=== PATIENT | male | born 1945 | race Caucasian/White ===

== ENCOUNTER 2020-01-29 18:55 | Inpatient (IN) | payer MEDICARE, OTHER ==
[~2020-01-29 18:55] MED LIST: Iopamidol-370 76% 500 ML 1 ML ONE
[2020-01-29 19:51] LABS: #Basophils 0.1 thou/uL (0.0-0.2); #Eosinphils 0.1 thou/uL (0.0-0.7); #Lymphocytes 0.8 thou/uL (1.20-3.40); #Monocytes 0.5 thou/uL (0.11-0.59); #Neutrophils 6.2 thou/uL (1.40-6.50); %Basophils 0.7 % (0.0-1.0); %Eosinophils 1.3 % (0.0-10.0); %Lymphocytes 10.9 % (21.0-51.0); %Monocytes 5.9 % (0.0-10.0); %Neutrophils 81.2 % (42.0-75.0); Hemoglobin 10.6 g/dL (14.0-18.0); Mean Platelet Volume 8.4 fL (7.4-10.4); Platelet Count 168 thou/uL (130-400); Red Blood Cell (RBC) Count 3.21 mill/uL (4.70-6.10); White Blood Cell (WBC) Count 7.6 thou/uL (4.8-10.8)
[2020-01-29] MEDS ORDERED: Ondansetron PF 4 MG/2 ML Vial ONE (19:52)
[2020-01-29] MEDS ORDERED: Morphine 4 MG/ML VIAL ONE ×2 (19:52→21:55)
[2020-01-29 20:12] LABS: ALT (SGPT) 35 U/L (8-55); AST (SGOT) 32 U/L (5-34); Albumin 2.7 g/dL (3.4-4.8); Alkaline Phosphatase 212 U/L (40-110); Anion Gap 25 mmol/L (10-20); BUN (Urea Nitrogen) 65 mg/dL (8.4-25.7); Bilirubin, Total 0.5 mg/dL (0.2-1.2); CK (CPK) 124 U/L (30-200); Calc. Creatinine Clearance 0 mL/min (70-130); Calcium 6.3 mg/dL (7.8-10.44); Carbon Dioxide 15 mmol/L (23-31); Chloride 105 mmol/L (98-107); Estimated GFR-MDRD 4; Globulin 2.8 g/dL (2.4-3.5); Glucose 106 mg/dL (83-110); Potassium 4.3 mmol/L (3.5-5.1); Protein, Total 5.5 g/dL (5.8-8.1); Sodium 141 mmol/L (136-145)
--- NOTE | 2020-01-29 20:20 | RAD ---
LEFT ANKLE TWO VIEW: 01/29/20 HISTORY: Fall, injury. COMPARISON: None. FINDINGS: Extensive vascular calcifications. Advanced degenerative disease of the lateral ankle mortise. Age in determinate fracture lateral process of the talus although there is adjacent soft tissue swelling. Hi gh grade midfoot degenerative change. Mild to moderate sized dorsal and plantar calcaneal spurs. IMPRESSION: 1. Age indeterminate fracture lateral process of talus. Recommend correlation for focal tenderne ss. 2. Advanced degenerative disease of the lateral ankle mortise. 3. Advanced degenerative disease of the midfoot. 4. High grade vascular calcifications. POS: HOME
[2020-01-29 20:35] LABS: CKMB 2.6 ng/mL (0-6.6)
--- NOTE | 2020-01-29 20:37 | RAD ---
LEFT KNEE FOUR VIEWS: 01/29/20 HISTORY: Injury. FINDINGS: Extensively comminuted fracture of the distal femur is present with extension into the femoral compon ent of the metallic knee prosthesis. There is splitting of the distal femoral fragments at the metall ic hardware. Lipohemarthrosis evident on the lateral view. Osseous structures are markedly deminerali zed. Calcifications throughout the arterial structures. IMPRESSION: Extensively comminuted distal left femoral fracture extending to the metallic component of a knee pro sthesis. Lipohemarthrosis. Osteoporosis. Atherosclerosis. POS: BST
--- NOTE | 2020-01-29 20:43 | CT ---
CT HEAD NONCONTRAST: 01/29/20 HISTORY: Fall. Injury. FINDINGS: There is no evidence of acute intracranial hemorrhage or infarct. Mild diffuse cortical atrophy. Mild chronic ischemic small vessel disease. There is no mass effect or shift of midline structures. Calcification within the arterial structures of the brain base. Visualized paranasal sinuses remain well aerated. IMPRESSION: No acute traumatic injury is demonstrated. Atherosclerosis. POS: BST
--- NOTE | 2020-01-29 20:44 | CT ---
CT CERVICAL SPINE NONCONTRAST: 01/29/20 HISTORY: Fall. Neck injury. FINDINGS: Vertebral body heights are maintained. No acute fracture or dislocation are evident. Minimal degenera tive spondylolisthesis at the C2-3 and T1-2 levels. Osteophytosis throughout the vertebral bodies and facets with multilevel foraminal stenoses. Prominent calcification throughout the arterial structures. IMPRESSION: Degenerative changes cervical spine. No acute osseous abnormalities are demonstrated. Atherosclerosis. POS: BST
[2020-01-29] MEDS ORDERED: Fentanyl 100 MCG/2 ML VIAL ONE ×3 (22:04→23:43)
[2020-01-29] MEDS ORDERED: Ondansetron PF 4 MG/2 ML Vial IVP PRN (22:41)
[2020-01-29] MEDS ORDERED: hydrALAZINE 20 MG/ML VIAL SLOW IVP PRN (22:41)
[2020-01-29] MEDS ORDERED: Dextrose 50% Abboject 50 ML SYRINGE SLOW IVP PRN (22:41)
[2020-01-29] MEDS ORDERED: Dextrose 5% in Water 1,000 ML IV PRN (22:41)
[2020-01-29] MEDS ORDERED: traMADol HCl 50 MG TAB PO PRN (22:46)
[2020-01-29 23:11] LABS: Phosphorus 8.6 mg/dL (2.3-4.7)
[2020-01-29] MEDS ORDERED: Hydrocortisone Sod Succ/PF 100 mg/2 ml Vial ONE (23:12)
[2020-01-30 00:14] LABS: CKMB 4.3 ng/mL (0-6.6)
[2020-01-30 01:02] VITALS: BMI 30.3
[2020-01-30] MEDS: Acetaminophen 500 MG TAB PO SCH ×5 (01:21→23:40)
[2020-01-30 01:52] LABS: #Lymphocytes 0.7 thou/uL (1.20-3.40); #Monocytes 0.5 thou/uL (0.11-0.59); #Neutrophils 12.9 thou/uL (1.40-6.50); %Basophils 0.3 % (0.0-1.0); %Eosinophils 0.3 % (0.0-10.0); %Lymphocytes 4.9 % (21.0-51.0); %Monocytes 3.4 % (0.0-10.0); %Neutrophils 91.2 % (42.0-75.0); Hemoglobin 11.4 g/dL (14.0-18.0); Mean Corpuscular HGB CONC 32.6 g/dL (32.0-36.0); Mean Corpuscular Hemoglobin 33.1 pg (27.0-31.0); Mean Platelet Volume 8.1 fL (7.4-10.4); Platelet Count 175 thou/uL (130-400); RBC Distribution Width 12.9 % (11.5-14.5); Red Blood Cell (RBC) Count 3.45 mill/uL (4.70-6.10); White Blood Cell (WBC) Count 14.1 thou/uL (4.8-10.8)
--- NOTE | 2020-01-30 01:52 | CON ---
DATE OF CONSULTATION: 01/29/2020 SERVICE: Nephrology. REASON FOR CONSULTATION: End-stage renal disease management. REQUESTING PHYSICIAN: Dr. Walter Vu. CHIEF COMPLAINT: The patient is a 74-year-old male with known history of end-stage renal disease, on hemodialysis, hypertension, gout, and others, who was brought into the hospital after he lost his balance and fell. The patient reportedly twisted his left leg and fell and subsequently developed pain to the knee and ankle of the affected left leg. He also reportedly hit the head, but denied loss of consciousness, nausea, vomiting. The patient reportedly was hypotensive and was noted to have marked swelling of the left thigh concerning for continued bleeding. The patient was subsequently evaluated with CT angio of the left lower extremity, which however was negative for active bleeding. The patient who is visiting the area from [place] where he dialyzes. He only was able to tell me that he thus far , but does not know his prescription. He does not make urine anymore. He complains of being dry and thirsty. He denies shortness of breath, chest pain, or headache. PAST MEDICAL HISTORY: 1. End-stage renal disease. 2. Arrhythmias. 3. Gout. 4. Hypertension. PAST SURGICAL HISTORY: 1. Cholecystectomy. 2. Pacemaker placement. 3. Right big toe amputation. 4. Bilateral knee replacements. FAMILY HISTORY: Reviewed, but noncontributory. SOCIAL HISTORY: The patient lives with spouse. Denied alcohol, drug, or smoking. ALLERGIES: NO KNOWN DRUG ALLERGIES REPORTED. HOME MEDICATIONS: 1. Lisinopril 40 mg p.o. daily. 2. Metoprolol tartrate 25 mg p.o. b.i.d. 3. Allopurinol 300 mg daily. 4. Protonix 40 mg p.o. daily. 5. Calcitriol 0.5 mcg p.o. daily. 6. Magnesium tablet once daily. 7. Tamsulosin 0.4 mg p.o. daily. 8. Note that this list has not been verified as the patient does not really know exactly what he is taking. REVIEW OF SYSTEMS: A 12-point review of system performed was negative other than pertinent positives and negatives included in the history of present illness. PHYSICAL EXAMINATION: VITAL SIGNS: Initial vitals on presentation showed BP 117/58, respiratory rate 18, pain 9/10, pulse 61, temperature 97.9, SpO2 100% on room air. However, blood pressure did drop down to a tiny of 86.38 hence was bolused normal saline 500 mL and also was transfused 1 unit of packed red blood cells. GENERAL: Obese male, in some painful distress. Afebrile. Anicteric. Acyanotic. HEENT: Normocephalic, atraumatic. Oral mucosa is dry. NECK: Supple with no JVD. CARDIOVASCULAR: Regular rhythm and rate with normal heart sounds 1 and 2. RESPIRATORY: Fair air entry bilaterally with no obvious crackle or rhonchi or use of accessory muscles. GI: Full, soft, nondistended with normal bowel sounds. PD catheter noted. EXTREMITIES: Left lower extremity is held in lateral rotation and mid flexion at the knee. Marked swelling of the left thigh noted. Tenderness also is appreciated. Other extremities are grossly normal looking atraumatic with no obvious edema except amputation of right big toe. PARACHUTE INSPECTOR: Conscious, alert, oriented x3 with appropriate mental status. Cranial nerves 2 through 12 are grossly intact. DIAGNOSTIC DATA: CBC showed WBC count of 7.6, hemoglobin of 10.6, MCV of 103, platelet of 168. CMP showed sodium 141, potassium 4.3, chloride 105, CO2 16, BUN 65, creatinine 11.3, glucose 106, calcium 6.3, total bilirubin 0.5, AST 32, ALT 35, alkaline phosphatase 212, total protein 5.5, albumin 2.7. Initial cardiac markers showed CK 124, CK-MB 2.6, troponin 0.056. Phosphorus is 8.6 and magnesium is 2.1. Random cortisol level is 12.6. IMAGIN. CT scan of the brain showed no acute traumatic injury. 2. CT scan of the cervical spine showed degenerative changes in the cervical spine with no acute osseous abnormality. 3. X-ray of the knee showed extensive comminuted distal leg femoral fracture extending to the metallic component of a knee prosthesis. 4. Left ankle fracture showed age indeterminate fracture, lateral process of talus as well as advanced degenerative disease of the lateral ankle mortise and of mid foot as well as high-grade vascular calcifications. 5. Lower extremity CT scan, CT angio as well as chest x-ray and pelvic x-ray have also been done, but report is pending at this time. ASSESSMENT: 1. End-stage renal disease, on peritoneal dialysis. The patient makes no urine and has no residual renal function. Received contrast for evaluation of possible acute bleed in contrast CT of lower extremity. In view of absence of renal function, there is no need for hemodialysis. 2. Hypotension: Due to volume depletion as well as acute blood loss leading to intravascular contraction. Some contribution from adrenal insufficiency cannot be ruled out. 3. Acute blood loss into the left thigh tissue. 4. Metabolic acidosis due to end-stage renal disease. 5. Hypocalcemia. 6. Hyperphosphatemia. 7. Presumed adrenal insufficiency. PLAN: We will give additional 500 mL of normal saline as blood pressure is soft. 1. We will hold all antihypertensives. 2. We will dialyze patient inline with his usual schedule. However, we will deescalate ultrafiltration as patient is clinically dry. 3. We will monitor hemodynamics closely. 4. Management of fracture as per Trauma Team and Orthopedics. 5. Further treatment to follow depending on hospital course. Many thanks for involving us in the care of this patient. Job ID: [id number]
[2020-01-30] MEDS: traMADol HCl 50 MG TAB PO PRN (02:13)
[2020-01-30 02:18] LABS: Troponin I 0.063 ng/mL (< 0.028)
[2020-01-30] MEDS: traMADol HCl 50 MG TAB PO SCH (03:07)
[2020-01-30 03:36] LABS: #Lymphocytes 0.6 thou/uL (1.20-3.40); #Monocytes 0.3 thou/uL (0.11-0.59); #Neutrophils 13.1 thou/uL (1.40-6.50); %Eosinophils 0.3 % (0.0-10.0); %Lymphocytes 4.3 % (21.0-51.0); %Monocytes 2.4 % (0.0-10.0); Hemoglobin 11.6 g/dL (14.0-18.0); Mean Corpuscular HGB CONC 33.4 g/dL (32.0-36.0); Mean Corpuscular Hemoglobin 33.6 pg (27.0-31.0); Mean Platelet Volume 8.1 fL (7.4-10.4); Platelet Count 172 thou/uL (130-400); RBC Distribution Width 12.9 % (11.5-14.5); Red Blood Cell (RBC) Count 3.45 mill/uL (4.70-6.10); White Blood Cell (WBC) Count 14.1 thou/uL (4.8-10.8)
[2020-01-30 03:38] LABS: HBSAg Index 0.16 S/CO (0-0.99); Hep B Surf Ag Non-Reactive S/CO (NonReactive)
[2020-01-30 04:02] LABS: Anion Gap 26 mmol/L (10-20); BUN (Urea Nitrogen) 67 mg/dL (8.4-25.7); Calc. Creatinine Clearance 10 mL/min (70-130); Calcium 6.3 mg/dL (7.8-10.44); Carbon Dioxide 13 mmol/L (23-31); Chloride 103 mmol/L (98-107); Estimated GFR-MDRD 5; Glucose 179 mg/dL (83-110); Potassium 4.8 mmol/L (3.5-5.1); Sodium 137 mmol/L (136-145)
[2020-01-30 04:09] LABS: Phosphorus 9.2 mg/dL (2.3-4.7)
[2020-01-30] MEDS: Fentanyl 100 MCG/2 ML VIAL SLOW IVP PRN (04:25)
[2020-01-30] MEDS: Hydrocortisone Sod Succ/PF 100 mg/2 ml Vial IVP SCH ×4 (06:08→23:40)
--- NOTE | 2020-01-30 06:09 | HP ---
TRAUMA SURGEON: Dr. Martinez. CONSULTING PHYSICIANS: Dr. Helton of Nephrology and Dr. Nascimento of Orthopedic Surgery. HISTORY OF PRESENT ILLNESS: The patient is a 74-year-old male, who presented to the emergency department via EMS after a mechanical slip and fall at a gas station. The patient reported falling forward onto his knees. Upon evaluation, he had some left thigh swelling and deformity. At the time of my evaluation, the patient did slowly become hypotensive with systolics in the 80s. The emergency room physician ordered a CTA of the left lower extremity as well as 500 cc of IV fluid followed by 1 L of blood. CTA of the left lower extremity demonstrated no vascular injury. The patient after receiving blood was still hypotensive and subsequently received 100 mg of hydrocortisone. This caused an increase in his blood pressure. Dr. Helton also evaluated the patient at the bedside and reported he thought the patient was dry. The patient received another 500 cc bolus of IV fluids in accordance to his recommendation. The patient, at the time of my evaluation, denied numbness and tingling in his bilateral upper and lower extremities. He denied chest pain or shortness of breath. He denied C-spine pain. At one point, he did become tachycardic into the 150s. EKG was completed, which demonstrated T-wave inversions in the lateral leads. This was a change in his EKG from previously. His troponin is also slightly elevated at 0.05. Per the recommendations of Dr. Martinez, Cardiology was consulted. I spoke with Dr. Salcido over the phone, who reported he was not concerned and recommended a formal consult in the morning for whoever is on-call. He did not come to see the patient at that time. Dr. Martinez was updated. REVIEW OF SYSTEMS: All additional 10-point review of systems negative except as indicated above. PAST MEDICAL HISTORY: ESRD, on peritoneal dialysis; obstructive sleep apnea; pacemaker; spinal stenosis; diabetes; gastric ulcers. PAST SURGICAL HISTORY: Right great toe amputation, bilateral knee replacement, cholecystectomy, gastric bypass surgery. MEDICATIONS: The patient is not aware of his medications, only reports he takes lisinopril. ALLERGIES: NO KNOWN DRUG ALLERGIES. PHYSICAL EXAMINATION: VITAL SIGNS: Temperature 97.4, pulse 73, respirations 15, oxygen saturation 100% on room air, blood pressure 110/55. PRIMARY SURVEY: Airway intact. Adequate breath sounds bilaterally. 2+ pulses in bilateral radials, femorals, and DPs. GCS 15. Gross motor and sensation are intact. No lacerations, bruising, or external bleeding. Left thigh is swollen with deformity. SECONDARY SURVEY: HEAD: Normocephalic and atraumatic. No gross palpable skull deformities. EYES: Pupils 3-2, equal, round, reactive to light bilaterally. FACE: No signs of trauma. C-SPINE: No step-offs or deformities. Nontender. CHEST: Nontender. No crepitus. No abrasions or ecchymosis. Equal chest movement. ABDOMEN: Soft, nontender, nondistended. PELVIS: Stable to palpation. Nontender. No abrasions or ecchymosis noted. RECTAL: Deferred. GENITOURINARY: Deferred. EXTREMITIES: The patient has swelling and deformity to his left thigh. No other abrasions or ecchymosis noted. 2+ pulses in bilateral radials, femorals, and DPs. BACK/SPINE: No step-offs, deformities, or tenderness to palpation of the thoracic or lumbar spine. No abrasions or ecchymosis noted. 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 Gross normal sensation x4 extremities. LABORATORY FINDINGS: White count 7.6, hemoglobin 10.6, hematocrit 33.1, platelets 168. Sodium 141, potassium 4.3, chloride 105, bicarb 15, BUN 63, creatinine 11.3, glucose 106, phosphorus 8.6, magnesium 2.1. CK 124, troponin 0.056. Cortisol 12.6. DIAGNOSTIC FINDINGS: X-ray of the left knee demonstrates extensive comminuted displaced left femoral fracture extending into the metallic component of the knee prosthesis. X-ray of the left ankle demonstrates age-indeterminate fracture of lateral process of talus, recommend correlation for focal tenderness. Advanced degenerative disease of the lateral ankle mortise, advanced degenerative disease of the midfoot, high grade vascular calcifications. CT scan of the brain, no acute traumatic injury is demonstrated. CT scan of the C-spine demonstrates degenerative changes of the cervical spine. No acute osseous abnormalities are demonstrated. CTA of the left lower extremity, final read is pending as well as chest x-ray and pelvic x-ray. ASSESSMENT: 1. Status post mechanical fall from standing. 2. Left distal periprosthetic femur fracture. 3. Acute adrenal insufficiency. 4. Rff-CO-[id number] myocardial infarction. 5. History of end-stage renal disease, on peritoneal dialysis; obstructive sleep apnea; pacemaker; spinal stenosis; diabetes, and gastric ulcers. PLAN: The patient will be admitted to the Trauma Service before moving to the [facility]. The patient was hemodynamically stable, but Dr. Martinez recommended close blood pressure evaluation. Dr. Helton was also consulted yesterday. The patient was requiring to do peritoneal dialysis, but had not completed it yet. Dr. Helton plans some form of dialysis this evening. Dr. Nascimento of Orthopedic Surgery was consulted and plan to take the patient to the OR tomorrow. I did speak with Dr. Salcido over the phone per the recommendations of Dr. Martinez, who evaluated the patient at bedside. He reported it would be appropriate for us to consult Cardiology in the morning and not this evening. Subsequently, we have placed an order for Cardiology consult in the morning. We will continue to trend his troponins. For the acute adrenal insufficiency, he did receive 100 of hydrocortisone in the emergency department. He will receive 50 mg IV q.6 hours. He has p.o. and IV pain medications post scheduled and p.r.n. He has insulin sliding scale for his diabetes. He is n.p.o. He has CPAP at night. He has brought his home machine. This patient was evaluated by Dr. Martinez and myself this evening in the emergency department. Job ID: [id number]
[2020-01-30] MEDS: Insulin Regular 300 UNITS/3 ML VIAL SC PRN ×3 (06:47→23:53)
--- NOTE | 2020-01-30 07:22 | RAD ---
CHEST 1 VIEW: Date: 01/29/2020 HISTORY: Fall. COMPARISON: None. FINDINGS: Lungs are clear. No pneumothorax or effusion. Dual lead pacer leads project over the right atrium and right ventricle. No displaced rib fracture. IMPRESSION: No acute intrathoracic abnormality. POS: HOME
--- NOTE | 2020-01-30 07:23 | RAD ---
PELVIS 1 VIEW: Date: 01/29/2020 HISTORY: Fall. COMPARISON: None. FINDINGS: The obturator rings are intact. Mild narrowing of both hip joints. Small acetabular osteophytes. Moderate vascular calcifications. Catheter projects over the left lower quadrant of the pelvis. IMPRESSION: No acute osseous abnormality. POS: HOME
[2020-01-30] MEDS ORDERED: CEFAZOLIN 2 GM in Premix Bag 1 BAG IVPB SCH (07:30)
--- NOTE | 2020-01-30 07:32 | CT ---
CT ANGIOGRAM LEFT LOWER EXTREMITY: Date: 01/29/2020 HISTORY: Pain. Evaluate for bleed. COMPARISON: Knee radiograph same date. FINDINGS: Comminuted distal femoral periprosthetic fracture with fracture line extending into the prosthesis. E xtensive vascular calcifications. Small volume knee joint effusion. There is no active contrast extra vasation. The popliteal artery is intact. The trifurcation is intact proximally. No significant flow within the posterior tibial artery at the level of the mid tib-fib. Small volume hematoma within the vastus intermedius and vastus lateralis muscles. IMPRESSION: 1. No active contrast extravasation. Small volume intramuscular hematoma of vastus intermedius and v astus lateralis muscles. 2. No significant flow of posterior tibial artery to level of mid tib-fib, likely sequelae of chroni c vascular disease. 3. Comminuted periprosthetic distal femoral fracture. POS: HOME
[2020-01-30] MEDS: Polyethylene Glycol 3350 17 GM Packet PO SCH ×2 (07:54→08:03)
[2020-01-30] MEDS: Senokot S 8.6-50 MG TAB PO SCH ×2 (07:57→20:10)
[2020-01-30 08:08] LABS: Troponin I 0.066 ng/mL (< 0.028)
--- NOTE | 2020-01-30 09:53 | CON ---
DATE OF CONSULTATION: 01/30/2020 CHIEF COMPLAINT: Left knee pain. HISTORY OF PRESENT ILLNESS: Mr. Laguerre is a 74-year-old male, who [facility]. He was traveling in between dialysis in [place]. He tripped and fell while getting gas. He landed on his left leg. He had pain and deformity. He was taken to the emergency department. He has been found to have a distal femoral fracture. He has a history of total knee arthroplasty in 2004. He has had no problems with his knee since then. The patient is on dialysis. He is currently moving from [place] to [place]. He does not live in [place]. He does peritoneal dialysis. REVIEW OF SYSTEMS: Positive for left leg pain. Otherwise, negative 10-point review of systems. PAST MEDICAL HISTORY: End-stage renal disease, on peritoneal dialysis; obstructive sleep apnea; history of pacemaker placement; spinal stenosis; diabetes; gastric ulceration. PAST SURGICAL HISTORY: Right great toe amputation for infection, bilateral total knee arthroplasty, cholecystectomy, gastric bypass surgery. FAMILY MEDICAL HISTORY: Noncontributory. ALLERGIES: NO KNOWN DRUG ALLERGIES. PHYSICAL EXAMINATION: VITAL SIGNS: The patient is afebrile. Blood pressure is 115/52, heart rate is 75, 100% on room air. GENERAL: He is alert, lying supine, no apparent distress. HEENT: Normocephalic, atraumatic. RESPIRATORY: Breathing comfortably. ABDOMEN: Soft, nontender, and nondistended. There is peritoneal dialysis catheter. MUSCULOSKELETAL: The patient's left leg is flexed and externally rotated. He has a well-healed anterior knee scar. There is shortening and deformity of the distal femur. He has ecchymosis and bruising around the knee as well as the medial malleolus of the ankle. Tender to palpation. He is able to flex and extend the foot and ankle. Palpable dorsalis pedis pulse. IMAGING STUDIES: X-rays of the left femur demonstrate highly comminuted and displaced distal femoral fracture. This is a periprosthetic fracture. The total knee implant appears to be fixed to the bone, however, the fracture does communicate with the cement interface. He has evidence of osteoporosis on x-ray. Left ankle x-ray demonstrates osteoarthritic changes of the hindfoot and midfoot. There is possible lateral process of the talus fracture, which appears to be chronic in nature. No medial malleolus fractures identified on this x-ray. IMPRESSION: Left distal femur periprosthetic fracture in an elderly male. PLAN: At this point, the patient is going to need surgical intervention. We will plan for open reduction and internal fixation of his left distal femur. Goal of surgery is to stabilize the bone to allow healing. Risks have been reviewed, which to include infection, pain, scarring, nerve or vascular injury, and others. He will need to be nonweightbearing for 6 to 8 weeks. He appears to have a soft tissue injury to his ankle primarily. This should heal along with the femur as he will be nonweightbearing. He will have perioperative antibiotics. He will have DVT prophylaxis. A fourth officer has been consulted to evaluate his slight troponin elevation prior to surgery today. He will remain n.p.o. He will have antibiotics on-call to the operating room. Job ID: [id number]
[2020-01-30] MEDS ORDERED: Dexamethasone 20 MG/5 ML VIAL ONE (11:16)
[2020-01-30] MEDS ORDERED: Lidocaine 1% PF 5 ML VIAL ONE (11:16)
[2020-01-30] MEDS ORDERED: EPHEDRINE 25 MG/5 ML SYRINGE ONE (11:16)
[2020-01-30] MEDS ORDERED: Glycopyrrolate 0.2 MG/ML 5 ML SYRINGE ONE (11:16)
[2020-01-30] MEDS ORDERED: PHENYLEPHRINE-NS 100 MCG/ML 10 ML SYRINGE ONE (11:16)
[2020-01-30] MEDS ORDERED: Rocuronium Bromide 10 MG/ML (10ML VIAL) ONE (11:16)
[2020-01-30] MEDS ORDERED: PROPOFOL 200 MG/20 ML VIAL ONE (11:16)
[2020-01-30] MEDS ORDERED: Ondansetron PF 4 MG/2 ML Vial ONE (11:16)
--- NOTE | 2020-01-30 12:48 | CON ---
DATE OF CONSULTATION: HISTORY OF PRESENT ILLNESS: The patient is a 74-year-old gentleman, who presented after a fall and needs to undergo surgery. The patient has a previous history of a pacemaker placement. He states several years ago he had several syncopal episodes and apparently significant bradycardia. The patient has no history of coronary artery disease. The patient states he underwent a stress test at the [facility] two years ago, which was unremarkable. The patient denies having any history of chest discomfort. The patient denies having any PND or orthopnea. The patient had a fall yesterday and apparently needs to undergo a knee surgery. PAST MEDICAL HISTORY: 1. History of syncope. 2. End-stage renal disease. 3. Diabetes mellitus. 4. Hypertension. 5. History of bleeding ulcers. PAST SURGICAL HISTORY: Gastric surgery, cholecystectomy, toe surgery, and knee surgery. ALLERGIES: NO KNOWN DRUG ALLERGIES. SOCIAL HISTORY: Nonsmoker. FAMILY HISTORY: Positive for family history of coronary artery disease. MEDICATIONS: 1. Lisinopril 5 b.i.d. 2. Metoprolol 25 b.i.d. 3. Allopurinol 300 daily. 4. Protonix 40 daily. 5. Flomax 0.4 daily. REVIEW OF SYSTEMS: Ten-point system otherwise unremarkable. No history of easy bruising or bleeding, bright red blood per rectum. PHYSICAL EXAMINATION: GENERAL: Obese gentleman, in no acute distress. VITAL SIGNS: Blood pressure is 115/52. NECK: Showed no jugular venous distention. LUNGS: Clear to auscultation. HEART: Regular rate and rhythm. Normal S1 and S2. No murmurs. ABDOMEN: Nondistended. EXTREMITIES: Show no edema. VASCULAR: Radial pulses are 2+. LABORATORY RESULTS: Sodium 137, potassium 4.8, chloride 103, bicarb 13, BUN 67 , and creatinine was 11. Troponin was 0.066. White blood cell count is 14.1, hemoglobin 11.6, hematocrit 34.8, and platelets are 172. IMAGING DATA: EKG reveals a biventricular pacemaker. IMPRESSION: 1. Status post femur fracture. 2. End-stage renal disease. 3. Diabetes mellitus. 4. Hypertension. 5. History of bleeding ulcer. 6. History of pacemaker placement. PLAN: This gentleman presents after having a fall and needs to undergo orthopedic surgery. The patient has no symptoms suggestive of unstable angina. The patient has no evidence of congestive heart failure. We will check the patient's echocardiogram. The patient should be at acceptable risk for orthopedic surgery. Job ID: [id number] [facility]
--- NOTE | 2020-01-30 13:14 | PDOC.HOSPP ---
- Subjective Encounter Date: 01/30/20 Encounter Time: 08:45 Subjective: no chest pain or palp or sob last stress test [place] [facility] back [facility] [place] PCP is at [facility]. uses cane/walker to ambulate prior b/l tkr done at [facility] by Dr.Michael Howell (2004 left and 2002 right) on Peritoneal dialysis from sep of this year - Objective Vital Signs & Weight: Vital Signs (12 hours) Temp Pulse Ox 01/30/20 11:21 98.3 F 01/30/20 08:00 100 01/30/20 07:24 97.9 F 01/30/20 01:41 100 01/30/20 01:30 100 Weight Weight 255 lb 15.307 oz Most Recent Monitor Data Heart Rate from ECG 66 NIBP 97/55 NIBP BP-Mean 69 Respiration from ECG 17 SpO2 100 Result Diagrams: 01/30/20 03:17 01/30/20 03:17 Additional Labs: Accuchecks 01/30/20 01/30/20 01/30/20 12:15 06:47 01:33 POC Glucose 170 H 213 H 172 H Hospitalist ROS - Medication Medications: Active Medications Generic Name Dose Route Start Last Admin Trade Name Freq PRN Reason Stop Dose Admin Acetaminophen 1,000 mg 01/29/20 23:59 01/30/20 11:20 Tylenol PO 1,000 mg Q6HR JACK Administration Fentanyl 50 mcg 01/29/20 23:42 01/30/20 04:25 Sublimaze SLOW IVP 50 mcg Q2H PRN Administration Breakthrough Pain Hydrocortisone Sodium Succinate 50 mg 01/30/20 06:00 01/30/20 11:20 Solu-Cortef IVP 50 mg Q6HR JACK Administration Insulin Human Regular 0 units 01/29/20 22:41 01/30/20 06:47 Humulin R SC 3 unit .MILD SLIDING SCALE PRN Administration Mild Correctional Scale Pantoprazole Sodium 40 mg 01/30/20 09:00 01/30/20 07:53 Protonix PO 40 mg BID JACK Administration Polyethylene Glycol 17 gm 01/30/20 09:00 01/30/20 08:03 Miralax PO Not Given DAILY JACK Senna/Docusate Sodium 2 tab 01/30/20 09:00 01/30/20 07:57 Senokot S PO 2 tab BID JACK Administration Tramadol HCl 50 mg 01/29/20 22:46 01/30/20 02:13 Ultram PO 50 mg Q12H PRN Administration Moderate Pain (4-6) Tramadol HCl 50 mg 01/30/20 03:15 01/30/20 03:07 Ultram PO 06/28/21 03:16 50 mg NOW JACK Administration - Exam General Appearance: awake alert Eye: PERRL, anicteric sclera ENT: no oropharyngeal lesions, moist mucosa Neck: supple, no JVD Heart: RRR, no murmur Respiratory: no wheezes, no rales, no ronchi Gastrointestinal: soft, non-tender, non-distended, normal bowel sounds Gastrointestinal - other findings: PD cath+ Extremities: no cyanosis, 1+ LE edema Extremities - other findings: left LE edema especially thigh area Neurological: cranial nerve grossly intact, no focal deficits Psychiatric: normal affect, A&O x 3 Hosp A/P (1) Closed fracture of left distal femur Code(s): S72.402A - UNSP FRACTURE OF LOWER END OF LEFT FEMUR, INIT FOR CLOS FX Status: Acute Qualifiers: Encounter type: subsequent encounter (2) DM type 2 (diabetes mellitus, type 2) Status: Chronic Qualifiers: Diabetes mellitus chcf insulin use: without chcf use Diabetes mellitus complication status: with kidney complications Diabetes mellitus complication detail: with chronic kidney disease Chronic kidney disease stage : stage 5, not on chronic dialysis Qualified Code(s): E11.22 - Type 2 diabetes mellitus with diabetic chronic kidney disease; N18.5 - Chronic kidney disease, stage 5 (3) ESRD (end stage renal disease) on dialysis Code(s): N18.6 - END STAGE RENAL DISEASE; Z99.2 - DEPENDENCE ON RENAL DIALYSIS Status: Chronic (4) Peptic ulcer disease Code(s): K27.9 - PEPTIC ULC, SITE UNSP, UNSP AC OR CHR, W/O HEMOR OR PERF Status: Chronic (5) Obesity (BMI 30.0-34.9) Code(s): E66.9 - OBESITY, UNSPECIFIED Status: Chronic (6) LIDIA (obstructive sleep apnea) Code(s): G47.33 - OBSTRUCTIVE SLEEP APNEA (ADULT) (PEDIATRIC) Status: Chronic - Plan is going to OR to fix periprosthetic distal femoral fracture echo shows normal ef with no obvious wall motion abnormalities but it was tech difficult study to wear cpap after surgery (cpap machine has tubing issues) protonix, is on iv steroids his baseline SBP runs around 100-110 per patient if it drops to less than 100 he gets dizzy continue PD for esrd will f/u post op he has been cleared for surgery with acceptable risk without which has high morbidity and associated complications.
[2020-01-30] MEDS ORDERED: Cyanocobalamin 1000 MCG/ML VIAL SC SCH (14:00)
[2020-01-30] MEDS ORDERED: Fentanyl 100 MCG/2 ML VIAL ONE ×2 (14:09→17:40)
--- NOTE | 2020-01-30 14:45 | PRG ---
DATE OF SERVICE: 01/30/2020 SERVICE: Nephrology. SUBJECTIVE: A 74-year-old male patient with end-stage renal disease, on hemodialysis; hypertension; diabetes, and others, who was admitted after a fall. The patient sustained injury and fracture to the left lower extremity. This was associated with hypotension requiring IV fluid resuscitation with blood transfusion. Nephrology is following the patient for end-stage renal disease management. The patient reports feeling better today. Still having left lower extremity swelling and pain and decreased range of motion. Denied vomiting or dizziness. OBJECTIVE: VITAL SIGNS: Temperature 97.9, pulse 66, respiratory rate 17, SpO2 of 100%, blood pressure is 115/52. GENERAL: Obese male, in no obvious distress. Afebrile. Anicteric. Acyanotic. HEENT: Normocephalic and atraumatic. Oral mucosa is moist. CARDIOVASCULAR: Regular rhythm and rate with normal heart sounds 1 and 2. RESPIRATORY: Fair air entry bilaterally with no obvious crackle or rhonchi or use of accessory muscles. GI: Abdomen is obese, soft, nontender, nondistended. Dialysis catheter is in place. EXTREMITIES: Marked swelling of left lower extremity, which is held in lateral rotation and flexion at the knee. Other extremities are grossly unremarkable with no edema. BELLHOP: Conscious and alert, oriented x3 with appropriate mental status. Cranial nerves 2 through 12 are grossly intact. DIAGNOSTIC DATA: CBC showed WBC count of 14.1, hemoglobin of 11.6, platelets of 172. Chemistry showed sodium 137, potassium 4.8, chloride 103, CO2 of 13, BUN 67, creatinine 11, glucose 179, calcium 6.3, phosphorus 9.2, magnesium 2.0. Vitamin D is 16.6. ASSESSMENT: 1. End-stage renal disease, on peritoneal dialysis. 2. Hyperphosphatemia with phosphorus of 9.2. 3. Hypocalcemia with calcium of 6.3. Association of hypocalcemia and hyperphosphatemia is consistent with secondary hyperparathyroidism. Vitamin D deficiency, however, is a concern. 4. Metabolic acidosis: Due to end-stage renal disease. 5. Hypotension: Resolved. 6. History of hypertension: BP is controlled currently while antihypertensives are held. PLAN: 1. We will continue peritoneal dialysis today. We will dialyze the patient using regular prescription. 2. We will start Renvela phosphate binder. 3. We will also get vitamin D level and start supplementation if indicated. 4. Further treatment to follow depending on hospital course. 5. Treatment of fracture as per Trauma and Orthopedic Teams. Job ID: [id number]
[2020-01-30] MEDS ORDERED: Sodium Chloride 0.9% 1,000 ML IV SCH (15:00)
--- NOTE | 2020-01-30 15:30 | PRG ---
DATE OF SERVICE: 01/30/2020 SUBJECTIVE: The patient remains in the intermediate care unit, awake, alert, in no distress. The patient has been n.p.o. since midnight. The patient had no overnight events. The patient was mildly hypotensive in the emergency room last night, was given IV fluids. The patient is currently receiving his peritoneal dialysis, which should complete at approximately 12:15 today. The patient did have a bump in his troponin overnight and Cardiology was consulted. Cardiology did clear the patient for surgery later this evening. The patient is having some moderate amount of pain to his left lower extremity. OBJECTIVE: VITAL SIGNS: Blood pressure 109/57, pulse 61, respirations 20, SpO2 of 100% on room air, temperature 98.3. GENERAL: Elderly male, awake, alert, in no distress. RESPIRATORY: Equal chest rise and fall, respirations are clear bilateral, and nonlabored. CARDIAC: Biventricular paced, +1 pedal edema. Regular rate, no murmurs. ABDOMEN: Soft, nontender, nondistended. EXTREMITIES: Neurovascularly intact x4, left lower extremity. Left lower ankle edema, worse on left than right. Pulses are 1+ bilateral. 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 NEUROLOGIC: GCS 15. No focal deficits. LABORATORY DATA: WBC 14.1, RBC 3.45, hemoglobin 11.6, hematocrit 34.8, platelets 172. Sodium 137, potassium 4.8, chloride 103, carbon dioxide 13, BUN 67, creatinine 11.0. Estimated GFR 5. Glucose 172. Calcium 6.3, phosphorus 9.2, magnesium 2.0. Troponin 0.064, a repeat 0.063 and 0.066. Vitamin D 16.6. DIAGNOSTICS: Echocardiogram; ejection fraction estimated at 50% to 55%, normal size left atrium, left ventricular size is normal, aortic valve leaflets are somewhat thickened, mild tricuspid regurgitation. IMPRESSION: 1. Status post mechanical fall from standing. 2. Left distal periprosthetic femur fracture. 3. Acute traumatic pain secondary to above. 4. Acute adrenal insufficiency. 5. Demand ischemia. 6. End-stage renal disease, on peritoneal dialysis. 7. Hyperphosphatemia. 8. History of obstructive sleep apnea, pacemaker, spinal stenosis, diabetes, and gastric ulcers. PLAN: Continue n.p.o. status and pain regimen. The patient has been cleared by Cardiology to proceed with surgery. Continue peritoneal dialysis. Continue steroids for adrenal insufficiency. Maintenance IV fluids 75 mL an hour of normal saline. The patient is scheduled for approximately 4 p.m. today for repair of this left lower extremity injury. We will repeat labs in the morning. We will hold the patient's blood pressure medications as his blood pressure has been soft. The patient will have a diabetic diet postop and Physical and Occupational Therapy to evaluate and treat. The patient can most likely be moved to the floor tomorrow morning, if he remains hemodynamically stable. The plan was discussed with the patient and who agrees. Job ID: [id number]
[2020-01-30] MEDS ORDERED: Meperidine HCl/PF 25 MG/ML VIAL SLOW IVP PRN (17:06)
[2020-01-30] MEDS ORDERED: Ondansetron HCl/PF 4 MG/2 ML Vial IVP PRN (17:06)
[2020-01-30] MEDS ORDERED: Promethazine HCl 25 MG/ML VIAL IM PRN (17:06)
[2020-01-30] MEDS ORDERED: Promethazine HCl 25 MG/ML VIAL SLOW IVP PRN (17:06)
[2020-01-30] MEDS ORDERED: HYDROmorphone 2 MG/ML VIAL SLOW IVP PRN (17:06)
[2020-01-30] MEDS: Sevelamer Carbonate 800 MG TAB PO SCH ×3 (18:32→20:11)
[2020-01-30] MEDS ORDERED: Sodium Chloride 0.9% 500 ML IV SCH (19:00)
[2020-01-30] MEDS: Atorvastatin Calcium 40 MG TAB PO SCH (20:12)
[2020-01-30] MEDS: Magnesium Oxide 400 MG TAB PO SCH (20:12)
[2020-01-30] MEDS: Tamsulosin HCl 0.4 MG CAP PO SCH (20:14)
[2020-01-30] MEDS ORDERED: Ascorbic Acid 500 mg Chewable Tablet PO SCH (21:00)
[2020-01-30] MEDS: CEFAZOLIN 2 GM in Premix Bag 1 BAG IVPB SCH (21:15)
--- NOTE | 2020-01-30 21:21 | RAD ---
LEFT FEMUR TWO VIEW: 01/30/20 HISTORY: ORIF. COMPARISON: Radiograph prior day. FINDINGS: Satisfactory appearance of the plate and screw fixation distal femur. IMPRESSION: Satisfactory postoperative appearance. POS: HOME
--- NOTE | 2020-01-30 21:23 | PRG ---
DATE OF SERVICE: 01/30/2020 SUBJECTIVE: The patient was seen this evening during rounds. He was sitting up in bed, having dinner with no signs of acute distress. He did go to the OR today for fixation of his left distal femur fracture. Postoperatively, the patient returned to the [facility] and was mildly hypotensive. He did also complete his peritoneal dialysis. His systolic blood pressures were in the 80s. He subsequently had received 500 mL bolus of normal saline and his pressure has improved. The patient also reports he feels a lot better. He states pain is well controlled. OBJECTIVE: VITAL SIGNS: Temperature 97.5, pulse 72, respirations 15, oxygen saturation 99% on room air, blood pressure 91/46. GENERAL: Well-appearing elderly male, sitting up in bed with no signs of acute distress. PULMONARY: Equal chest rise and fall. No signs of acute respiratory distress. ASSESSMENT: 1. Status post mechanical fall from standing. 2. Left distal periprosthetic femur fracture, status post repair. 3. Left ankle sprain. 4. Acute adrenal insufficiency, stable. 5. Qyx-CR-vjugtjlrr myocardial infarction, stable. 6. Postoperative dehydration, improved. 7. History of end-stage renal disease, on peritoneal dialysis; LIDIA; pacemaker; spinal stenosis; diabetes; and gastric ulcers. PLAN: Continue current diabetic high-protein diet. Continue to monitor vital signs closely overnight. We will discontinue the patient's antihypertensives. Continue his metoprolol with hold parameters. Continue his CPAP at night. The patient has his own machine. We will have him work with Physical and Occupational Therapy, and he will likely need placement in acute rehab facility near his home in [place]. Job ID: [id number]
--- NOTE | 2020-01-31 00:11 | OP ---
DATE OF PROCEDURE: 01/30/2020 OPERATION: Open reduction, internal fixation of left distal femur fracture. PREOPERATIVE DIAGNOSIS: Left comminuted and displaced periprosthetic distal femur fracture. POSTOPERATIVE DIAGNOSIS: Left comminuted and displaced periprosthetic distal femur fracture. COMPLICATIONS: None. ESTIMATED BLOOD LOSS: 150 mL. ANESTHESIA: General. IMPLANT: Synthes 16-hole distal femoral variable angle locking plate was utilized. INDICATIONS: Mr. Laguerre is a 74-year-old male, who has fallen and fractured his left distal femur. He has been indicated for open reduction and internal fixation of the distal femur to restore anatomic alignment and promote healing. Risks have been reviewed in detail. He has elected to proceed with the operation. DESCRIPTION OF PROCEDURE: Mr. Laguerre was identified in the preoperative holding area. His correct extremity was marked. He was carried to the operating room. He was positioned supine. General anesthesia was induced. A multidisciplinary time-out was performed. The left lower extremity was prepped and draped in a sterile fashion. At this point, we began the procedure with a lateral approach to the distal femur. We dissected down through subcutaneous tissues to the fascia, which was opened. We exposed the underlying lateral cortex of the femur. We used an elevator to expose the cortex more proximally. At this point, we pulled length and manipulated the fracture fragments back into their anatomic position. We used a bone hook to pull the condyle into an appropriate position. At this point, we slid a 16-hole plate up along the lateral cortex of the femur. We placed a proximal nonlocking screw followed by multiple locking screws distally. This held our appropriate alignment. We took x-ray images throughout this procedure. We filled the remaining proximal screw holes. After all hardware was placed, we thoroughly irrigated with copious lavage. We then closed appropriately in layers using a #2 Vicryl suture, 2-0 Vicryl suture, and selwyn for the skin and sterile dressing was applied. The patient was taken to the recovery room in good condition without complication. Job ID: [id number]
[2020-01-31] MEDS: traMADol HCl 50 MG TAB PO PRN ×2 (00:39→13:35)
[2020-01-31] MEDS ORDERED: Sodium Chloride 0.9% 500 ML IVPB SCH (01:00)
[2020-01-31] MEDS: traMADol HCl 50 MG TAB PO SCH (02:19)
[2020-01-31] MEDS: Fentanyl 100 MCG/2 ML VIAL SLOW IVP PRN (02:26)
[2020-01-31 04:57] LABS: Band 11 % (5-11); Eosinophils 1 % (0-10); Hemoglobin 8.7 g/dL (14.0-18.0); Lymphocytes 5 % (21-51); MDiff Complete? YES; Mean Corpuscular HGB CONC 30.3 g/dL (32.0-36.0); Mean Corpuscular Hemoglobin 31.5 pg (27.0-31.0); Mean Platelet Volume 8.4 fL (7.4-10.4); Monocytes 2 % (0-10); Neutrophil 81 % (42-75); Platelet Count 152 thou/uL (130-400); Platelet Morphology Comment Appears Adequate; RBC Distribution Width 12.9 % (11.5-14.5); Red Blood Cell (RBC) Count 2.76 mill/uL (4.70-6.10); White Blood Cell (WBC) Count 14.7 thou/uL (4.8-10.8)
[2020-01-31 04:59] LABS: Anion Gap 24 mmol/L (10-20); BUN (Urea Nitrogen) 66 mg/dL (8.4-25.7); Calc. Creatinine Clearance 10 mL/min (70-130); Carbon Dioxide 13 mmol/L (23-31); Chloride 103 mmol/L (98-107); Estimated GFR-MDRD 5; Glucose 245 mg/dL (83-110); Potassium 4.5 mmol/L (3.5-5.1); Sodium 135 mmol/L (136-145)
[2020-01-31 05:02] LABS: Phosphorus 10.5 mg/dL (2.3-4.7)
[2020-01-31] MEDS: Acetaminophen 500 MG TAB PO SCH ×3 (06:32→17:04)
[2020-01-31] MEDS: Hydrocortisone Sod Succ/PF 100 mg/2 ml Vial IVP SCH ×4 (06:32→21:32)
[2020-01-31] MEDS: Insulin Regular 300 UNITS/3 ML VIAL SC PRN (06:32)
[2020-01-31] MEDS: CEFAZOLIN 2 GM in Premix Bag 1 BAG IVPB SCH (06:33)
--- NOTE | 2020-01-31 06:42 | HP ---
ADDENDUM: CHIEF COMPLAINT: Ground level fall. For full details, please see the H and P dictated by Haylee Fuchs Trauma PA. I saw the patient in the Emergency Room in conjunction with Ms. Fuchs and confirmed the details of her H and P. HISTORY: The patient is a 74-year-old man with multiple medical problems, who slipped and fell at [facility] He had immediate pain in left thigh and was unable to ambulate. He was worked up in the emergency room and found to have a distal femur fracture a knee replacement hardware, but during his emergency room stay, he became hypotensive. He was asymptomatic with his low blood pressure, but underwent further evaluation for vascular injury to his thigh. A CTA of the left lower extremity was negative. The patient states that he has had problems with low blood pressure in the past and had a pacemaker placed for this, but he is currently on lisinopril for hypertension. He has multiple medical issues including heart problems with a pacemaker but has end-stage renal failure and peritoneal dialysis, obstructive sleep apnea, at bedside and a history of bleeding ulcers, although he no bleeding. In the emergency room, he became briefly tachycardic to the 150s, but this resolved spontaneously. He was given blood for support of his blood pressure blood loss into his thigh from his fracture as well as some hydrocortisone, which led to some improvement in blood pressure, also some IV fluids at the recommendation of therapy site coordinator. He had some EKG changes during his episode of tachycardia but these basically resolved with resolution of the tachycardia. Throughout the entire denied any chest pain, shortness of breath, lightheadedness . PAST MEDICAL HISTORY: End-stage renal failure, on peritoneal dialysis, sleep apnea, history of bradycardia, spinal stenosis, diabetes, ulcers. PAST SURGICAL HISTORY: Bilateral knee replacement, cholecystectomy, gastric bypass. MEDICATIONS: The patient does not have his medications with him, but states that he takes lisinopril. He also reports to me that he takes omeprazole for ulcer disease, allopurinol for gout, but is not on aspirin, Plavix, blood thinners due to his history of ulcers and is not on any phosphate binders or steroids. ALLERGIES: HE HAS NO KNOWN DRUG ALLERGIES. PHYSICAL EXAMINATION: Complete physical examination was performed in the emergency room. No trauma except for swelling in the left distal thigh. His compartments were soft. Did not have any palpable pulses in either feet, but as previously stated, . Neurologically, he was intact with and movement toes. LABORATORY DATA: White count was normal. Hematocrit creatinine was elevated, which is slightly troponin was slightly elevated at . Imaging shows comminuted displaced left fracture prosthesis. Advanced degenerative and an indeterminate fracture of the lateral talus. Chest and pelvis x-rays at the bedside, no obvious abnormalities and he had absolutely no chest or abdominal . ASSESSMENT: Complex left distal periprosthetic fracture, status post fall and acute hypotension likely related to adrenal insufficiency , multiple medical problems as detailed in history. The patient was admitted to intermediate moody with Cardiology, Orthopedics . He has received IV steroids and is on . He has a CPAP machine with him at night. . Dr. Nascimento to the operating room stabilize were ordered, but slight elevation . Job ID: [id number]
[2020-01-31] MEDS: Sevelamer Carbonate 800 MG TAB PO SCH ×3 (08:58→17:03)
[2020-01-31] MEDS: Ferrous Sulfate 325 MG TAB PO SCH ×2 (08:58→17:04)
[2020-01-31] MEDS: Calcitriol 0.25 MCG CAP PO SCH (08:59)
[2020-01-31] MEDS: Ergocalciferol 1.25 MG(50,000 UNITS) CAP PO SCH (08:59)
[2020-01-31] MEDS: Finasteride 5 MG TAB PO SCH (08:59)
[2020-01-31] MEDS: Allopurinol 100 MG TAB PO SCH (08:59)
[2020-01-31] MEDS ORDERED: Non-Formulary Item 1 EACH (Sodium Bicarbonate [Sodium Bicarbonate] 1,300 MG) PO SCH (09:00)
[2020-01-31] MEDS: Thiamine 100 MG TAB PO SCH (09:00)
[2020-01-31] MEDS ORDERED: Lisinopril 20 MG TAB PO SCH ×2 (09:00)
[2020-01-31] MEDS ORDERED: Pantoprazole 40 MG GRANULES PACKET PO SCH (09:00)
[2020-01-31] MEDS: Sodium Bicarbonate Tab 325 MG TAB PO SCH ×3 (09:01→21:32)
[2020-01-31] MEDS: Polyethylene Glycol 3350 17 GM Packet PO SCH (09:02)
[2020-01-31] MEDS: Magnesium Oxide 400 MG TAB PO SCH ×2 (09:02→21:32)
[2020-01-31] MEDS: Senokot S 8.6-50 MG TAB PO SCH ×2 (09:19→21:32)
[2020-01-31] MEDS ORDERED: Calcium Carbonate 600 MG + Vit D TAB PO SCH ×2 (09:47→10:00)
[2020-01-31] MEDS: Folic Acid/Vit B Comp W-C PO SCH (09:53)
[2020-01-31] MEDS: Heparin 5,000 UNITS/ML VIAL SC SCH ×2 (09:53→21:33)
--- NOTE | 2020-01-31 10:45 | PRG ---
DATE OF SERVICE: 01/31/2020 SERVICE: Nephrology. SUBJECTIVE: A 74-year-old male, seen in followup for end-stage renal disease management. The patient is on peritoneal dialysis. He was admitted after a fall associated with left distal femoral fracture, status post open reduction and internal fixation. Reports feeling better. Hypotension of yesterday has improved. Denied nausea or vomiting. Tolerating peritoneal dialysis well. OBJECTIVE: VITAL SIGNS: Temperature 97.3, pulse 60, respiratory rate 14, SpO2 of 100 on room air, blood pressure is 110/37. GENERAL: Obese male, in no distress. Afebrile. Anicteric. Acyanotic. HEENT: Normocephalic, atraumatic. Oral mucosa is moist. CARDIOVASCULAR: Regular rhythm and rate with normal heart sounds 1 and 2. RESPIRATORY: Fair air entry bilaterally with no obvious crackle or rhonchi or use of accessory muscles. GI: Obese, soft, with no tenderness. Bowel sound is normoactive. PD catheter noted connected to dialysis. EXTREMITIES: Left lower extremities edema noted. Left leg covered with dressing. Other extremities are grossly normal, looking atraumatic, with no edema. GRADUATE RECRUITER: Conscious and alert and oriented x3 with appropriate mental status. DIAGNOSTIC DATA: CBC showed WBC count of 14.7, hemoglobin 8.7, platelet 152. Chemistry showed sodium 135, potassium 4.5, chloride 103, CO2 of 13, BUN 66, creatinine 10.49, glucose 245, calcium 6.0, phosphorus 10.5, magnesium 2.0. ASSESSMENT: 1. End-stage renal disease, on peritoneal dialysis. 2. Metabolic acidosis. 3. Hyperphosphatemia. 4. Vitamin D deficiency. 5. Hypocalcemia. 6. Acute on chronic anemia: Due to acute blood loss superimposed on chronic anemia of chronic kidney disease. 7. Hypotension: Improved. 8. History of hypertension: Blood pressure is running on the low side. PLAN: 1. We will continue peritoneal dialysis and adjust treatment as indicated. 2. We will start alkali therapy due to worsening metabolic acidosis. 3. We will also increase Renvela to 1600 t.i.d. with meals. 4. We will also discontinue isosorbide mononitrate due to hypotension. 5. We will start vitamin D supplementation. 6. Calcitriol to continue also. 7. We will start potassium supplementation also due to hypocalcemia. 8. Further treatment to follow depending on hospital course. Job ID: [id number]
--- NOTE | 2020-01-31 13:52 | PQF ---
DATE: 01-31-20 ATTN: ESPERANZA AIKEN Please exercise your independent, professional judgment in responding to the clarification form. Clinical indicators are provided on the bottom of this form for your review Please check appropriate box(s): Conflicting documentation was noted in the Medical Record, please clarify if patient is being treated/monitored for: [ ] NON -ST-ELEVATION MYOCARDIAL INFARCTION [ X] DEMAND ISCHEMIA [ ] Other diagnosis [ ] Unable to determine In addition, please specify: Present on Admission (POA): [ X] Yes [ ] No [ ] Unable to determine For continuity of documentation, please document condition throughout progress notes and discharge summary. Thank You. CLINICAL INDICATORS - SIGNS / SYMPTOMS/ LABS / RESULTS AND LOCATION IN EMR: TROPONIN: 01-29-20: 0.056, 0.064 01-30-20: 0.063, 0.066 H&P: 01-29-20: [id number] MYOCARDIAL INFARCTION PN PONZIO 01-30-20: DEMAND ISCHEMIA CONSULT NOTE DR. MORA 01-30-20: THE PATIENT HAS NO SYMPTOMS SUGGESTIVE OF UNSTABLE ANGINA. RISK FACTORS / RESULTS AND LOCATION IN EMR: ER NOTES 01-29-20: HX KIDNEY FAILURE, PERITOENAL DIALYSIS, PACEMAKER, CHF TREATMENT / RESULTS AND LOCATION IN EMR: CARDIOLOGY CONSULT 01-30-20 SERIAL TROPONINS 01-29-20 TO 01-30-20 (This form is maintained as a part of the permanent medical record) 2014 [employer]. All Rights Reserved KARLIE [email or web address] [facility]
[2020-01-31] MEDS: Ascorbic Acid 500 mg Chewable Tablet PO SCH (17:04)
--- NOTE | 2020-01-31 17:44 | PRG ---
DATE OF SERVICE: 01/31/2020 This is Erin Carrillo NP dictating a report for Aashish Lee DO. SUBJECTIVE: The patient was seen on the intermediate care unit, awake, alert, in no distress. The patient's pain is well controlled at this time. Physical therapy is currently at bedside. The patient is tolerating a diabetic renal high-protein diet. The patient's blood pressure was soft postop yesterday evening and the patient received a total of 1 L normal saline in which his blood pressure improved. The patient denies any other complaints. The patient is postop day #1 status post open reduction and internal fixation of his left distal femur fracture. OBJECTIVE: VITAL SIGNS: Blood pressure 109/45, respirations 20, heart rate 66, SpO2 100% on room air, temperature 97.3. GENERAL: Elderly male, awake, alert, in no distress. RESPIRATORY: Equal chest rise and fall. Respirations are even and unlabored. CARDIAC: Regular rate, regular rhythm, paced. ABDOMEN: Soft, nontender, nondistended. EXTREMITIES: Neurovascularly intact x4, left lower extremity in a knee immobilizer with an Shadi wrap underneath, mild amount of bleeding noted to the proximal site posteriorly. NEUROLOGIC: No focal deficits, GCS 15. LABORATORY DATA: WBC 14.7, RBC 2.76, hemoglobin 8.7, and hematocrit 28.7, MCV 104. Sodium 135, potassium 4.5, chloride 103, carbon dioxide 13, BUN 66, creatinine 10.49, estimated GFR 5, glucose 235, calcium 6.0, phosphorus 10.5, magnesium 2.0. IMPRESSION: 1. Status post mechanical fall from standing. 2. Left distal periprostatic femur fracture, postop day #1 open reduction and internal fixation. 3. Acute adrenal insufficiency. 4. Demand ischemia. 5. End-stage renal disease, on peritoneal dialysis. 6. Hyperphosphatemia. 7. Postoperative blood-loss anemia. 8. History of obstructive sleep apnea, pacemaker, spinal stenosis, diabetes, gastric ulcers, and end-stage renal disease. PLAN: Continue diabetic/renal high-protein diet as tolerated. Increase physical and occupational therapy. We will continue the patient's hydrocortisone for additional two days for adrenal insufficiency. 1 L free water restriction with unlimited Gatorade due to the mild hyponatremia. We will start the patient on heparin for VTE prophylaxis. Continue peritoneal dialysis. We will start the patient on ferrous sulfate for his postop anemia. The patient is currently already taking vitamins C. Orthopedic Surgery is aware of patient's wound with bloody drainage. We will repeat labs with a CBC to ensure the patient's hemoglobin and hematocrit are stable. Once the patient's pacemaker has been interrogated and no issues, the patient will be moved to the surgical floor. The patient was examined by Dr. Lee during morning rounds. The plan was discussed with the patient who agrees. The patient is pending placement to inpatient rehab versus ID facility. Job ID: [id number]
[2020-01-31] MEDS: Acetaminophen/Codeine 30-300mg Tablet PO PRN (19:50)
[2020-01-31] MEDS ORDERED: Gabapentin 100 MG CAP PO SCH (21:15)
[2020-01-31] MEDS: Tamsulosin HCl 0.4 MG CAP PO SCH (21:32)
[2020-01-31] MEDS: Atorvastatin Calcium 40 MG TAB PO SCH (21:32)
--- NOTE | 2020-01-31 21:48 | PRG ---
DATE OF SERVICE: 01/31/2020 SUBJECTIVE: The patient was seen this evening during rounds. He was sitting up in bed with no signs of acute distress. Earlier the patient's nurse reported he was having pain. His medications were changed from tramadol to Tylenol No. 3 p.r.n., also Flexeril added. At the time of my evaluation, the patient complained of more of a burning pain in his left lower extremity. Gabapentin was added. Tolerating a diet. OBJECTIVE: VITAL SIGNS: Temperature 97.7, pulse 82, respirations 20, oxygen saturation 92% on room air, blood pressure 118/72. GENERAL: Well-appearing elderly male, sitting up in bed with no signs of acute distress. PULMONARY: Equal chest rise and fall. No signs of acute respiratory distress. ASSESSMENT: 1. Status post mechanical fall. 2. Left distal periprosthetic femur fracture, status post repair. 3. Left ankle sprain. 4. Acute adrenal insufficiency, stable. 5. Uxs-[id number] myocardial infarction due to demand ischemia. 6. History of end-stage renal disease, on peritoneal dialysis; obstructive sleep apnea; pacemaker; spinal stenosis; diabetes; and gastric ulcers. PLAN: Continue current diet. Add gabapentin for pain regimen. Continue hydrocortisone. We will re-evaluate pain regimen if these changes have not worked. The patient is pending placement in acute rehab facility. Job ID: [id number]
[2020-02-01] MEDS: Acetaminophen 325 MG TAB PO SCH ×4 (01:27→17:03)
[2020-02-01] MEDS: Hydrocortisone Sod Succ/PF 100 mg/2 ml Vial IVP SCH ×4 (03:29→21:05)
[2020-02-01] MEDS: Acetaminophen/Codeine 30-300mg Tablet PO PRN ×3 (03:30→17:01)
[2020-02-01 04:48] LABS: Anion Gap 26 mmol/L (10-20); BUN (Urea Nitrogen) 74 mg/dL (8.4-25.7); Calc. Creatinine Clearance 10 mL/min (70-130); Calcium 6.2 mg/dL (7.8-10.44); Carbon Dioxide 16 mmol/L (23-31); Chloride 97 mmol/L (98-107); Estimated GFR-MDRD 5; Glucose 255 mg/dL (83-110); Potassium 4.8 mmol/L (3.5-5.1); Sodium 134 mmol/L (136-145)
[2020-02-01 05:41] LABS: Band 6 % (5-11); Hemoglobin 8.1 g/dL (14.0-18.0); Lymphocytes 6 % (21-51); MDiff Complete? YES; Mean Corpuscular HGB CONC 33.8 g/dL (32.0-36.0); Mean Corpuscular Hemoglobin 33.1 pg (27.0-31.0); Mean Corpuscular Volume 98.1 fL (78.0-98.0); Mean Platelet Volume 8.5 fL (7.4-10.4); Monocytes 1 % (0-10); Neutrophil 87 % (42-75); Platelet Count 156 thou/uL (130-400); RBC Distribution Width 12.8 % (11.5-14.5); Red Blood Cell (RBC) Count 2.44 mill/uL (4.70-6.10); White Blood Cell (WBC) Count 13.5 thou/uL (4.8-10.8)
[2020-02-01] MEDS: Polyethylene Glycol 3350 17 GM Packet PO SCH (09:31)
[2020-02-01] MEDS: Sevelamer Carbonate 800 MG TAB PO SCH ×3 (09:32→17:02)
[2020-02-01] MEDS: Calcium Carbonate 600 MG + Vit D TAB PO SCH (09:32)
[2020-02-01] MEDS: Heparin 5,000 UNITS/ML VIAL SC SCH ×2 (09:32→21:04)
[2020-02-01] MEDS: Allopurinol 100 MG TAB PO SCH (09:32)
[2020-02-01] MEDS: Magnesium Oxide 400 MG TAB PO SCH ×2 (09:33→21:04)
[2020-02-01] MEDS: Thiamine 100 MG TAB PO SCH (09:34)
[2020-02-01] MEDS: Finasteride 5 MG TAB PO SCH (09:34)
[2020-02-01] MEDS: Folic Acid/Vit B Comp W-C PO SCH (09:34)
[2020-02-01] MEDS: Senokot S 8.6-50 MG TAB PO SCH ×2 (09:34→21:04)
[2020-02-01] MEDS: Calcitriol 0.25 MCG CAP PO SCH (09:34)
[2020-02-01] MEDS: Gabapentin 100 MG CAP PO SCH ×3 (09:34→21:04)
[2020-02-01] MEDS: Ferrous Sulfate 325 MG TAB PO SCH ×2 (09:34→17:03)
[2020-02-01] MEDS: Sodium Bicarbonate Tab 325 MG TAB PO SCH ×3 (09:34→21:04)
[2020-02-01] MEDS: Ascorbic Acid 500 mg Chewable Tablet PO SCH ×2 (09:35→17:03)
[2020-02-01] MEDS: Insulin Glargine 10 UNITS in Pre-Filled Syringe 1 EACH SC SCH (09:52)
--- NOTE | 2020-02-01 11:46 | PRG ---
DATE OF SERVICE: 02/01/2020 This is Erin Carrillo NP dictating a report for Dr. Lee. SUBJECTIVE: This is a 74-year-old gentleman, who remains on the surgical floor. He is postop day #2, status post open reduction and internal fixation of this left distal femur fracture. The patient had no overnight events. The patient's blood pressure remains soft. The patient does report some mild dizziness with position changes. The patient is tolerating a diabetic renal high-protein diet. The patient reports that he does not produce any urine. The patient continues to receive hydrocortisone for his adrenal insufficiency. The patient's blood sugars are elevated at this time. The patient did have some pain medication adjustments last night as he was having some burning-like ankle pain. The patient reports that the pain is much improved. The patient denies any nausea or vomiting. OBJECTIVE: VITAL SIGNS: Temperature 97.7, pulse 60, respirations 16, SpO2 of 92% on room air, blood pressure 86/47. GENERAL: Elderly male, awake, alert, in no distress, sitting up in hospital bed. HEENT: Head is atraumatic and normocephalic. Mucous membranes are moist. CARDIOVASCULAR: Regular rate, regular rhythm. RESPIRATORY: Good inspiratory and expiratory effort, respirations are even and nonlabored. EXTREMITIES: Moves all extremities, neurovascularly intact x4. Left lower extremity with an Shadi wrap and knee immobilizer in place. NEUROLOGIC: GCS 15, no focal deficits. LABORATORY DATA: WBC 13.5, RBC 2.44, hemoglobin 8.1, hematocrit 24.0, platelets 156. Sodium 134, potassium 4.8, chloride 97, CO2 of 16, BUN 74, creatinine 10.84, estimated GFR of 5, glucose 255, calcium 6.2, phosphorus 11.0, magnesium 2.0. There are no new diagnostics to review. IMPRESSION: 1. Status post mechanical fall from standing. 2. Left distal periprosthetic femur fracture, postop day #2 open reduction and internal fixation. 3. Acute adrenal insufficiency. 4. End-stage renal disease, on peritoneal dialysis. 5. Hyperphosphatemia. 6. Hypocalcemia. 7. Postop blood loss anemia, stable. 8. History of obstructive sleep apnea, pacemaker, spinal stenosis, diabetes, gastric ulcers, gastric bypass, and end-stage renal disease. PLAN: Continue current pain regimen. Continue diabetic renal high-protein diet. We will supplement with half Nepro supplement three times a day to promote healing. We will continue the patient's hydrocortisone one more day for adrenal insufficiency. We will continue 1 L free water restriction with unlimited Gatorade due to mild hyponatremia. We will continue VTE prophylaxis with heparin as long as the patient's hemoglobin remains stable. Nephrology to manage the patient's peritoneal dialysis and electrolytes. We will hold patient's blood pressure medications for systolic blood pressure less than 100. We will continue iron supplement for his postop anemia. We will increase physical and occupational therapy. We will also increase the patient's a.m. Lantus dose to 10 units q.a.m. due to increased hyperglycemia due to being on steroids. We will repeat labs in the morning to ensure the patient's hemoglobin and hematocrit are stable. The patient is pending placement to rehab versus [place] facility. The patient was examined by Dr. Lee during morning rounds. The plan was discussed with the patient, who agrees. Job ID: [id number]
[2020-02-01] MEDS: Insulin Regular 300 UNITS/3 ML VIAL SC PRN ×2 (11:47→15:56)
[2020-02-01] MEDS ORDERED: EPOETIN ALFA-EPBX (ESRD) 10,000 UNIT/ML VIAL SC SCH (12:15)
--- NOTE | 2020-02-01 12:39 | PRG ---
DATE OF SERVICE: 02/01/2020 SERVICE: Nephrology. SUBJECTIVE: A 74-year-old male with trauma and fracture of left lower extremity, seen in followup for management of end-stage renal disease. The patient tolerated peritoneal dialysis well last night. Blood pressure however is still soft. The patient however denied any dizziness, nausea, or vomiting. He also denied leg swelling or shortness of breath. OBJECTIVE: VITAL SIGNS: Temperature 97.7, pulse 60, respiratory rate 16, SpO2 of 92% on room air, blood pressure is 86/47. GENERAL: Comfortable elderly male patient, in no distress. Afebrile and acyanotic. HEENT: Normocephalic, atraumatic. Oral mucosa is moist. CARDIOVASCULAR: Regular rhythm and rate with normal heart sounds 1 and 2. RESPIRATORY: Good air entry bilaterally with no obvious crackle or rhonchi or use of accessory muscles. GI: Full, soft, nontender, nondistended with normal bowel sounds. PD catheter noted. EXTREMITIES: Left lower extremity dressing and knee brace noted. Other extremities are grossly normal looking atraumatic with no edema or erythema. TUBING TESTER: Conscious, alert, and oriented x3 with appropriate mental status. DIAGNOSTIC DATA: CBC showed WBC count of 13.5, hemoglobin of 8.1, MCV of 98.1, platelet of 156. Chemistry showed sodium 134, potassium 4.8, chloride 97, CO2 of 16, BUN 74, creatinine 10.84, glucose 255, calcium 6.2, phosphorus 11.0, and magnesium 2.0. ASSESSMENT: 1. End-stage renal disease, on peritoneal dialysis. With persistent hyperphosphatemia and elevated BUN and creatinine. It looks like current dose of treatment is inadequate for patient. 2. Hyperphosphatemia. 3. Metabolic acidosis. 4. Anemia in chronic kidney disease. 5. Acute blood loss anemia due to trauma and surgery. 6. Uncontrolled diabetes mellitus. 7. Hypocalcemia. PLAN: 1. We will change peritoneal dialysis treatment to now be 5 exchanges of 1.5 dialysate. 2. We will decrease the metoprolol from 100 to 25 due to low blood pressure. 3. We will start low-dose Lantus with a view to increase it to get adequate blood sugar control. 4. We will continue phosphate binder. 5. We may give normal saline if indicated to get blood pressures up. 6. We will get iron chemistry with a view to start iron therapy and erythrocyte-stimulating agent. 7. We will also continue vitamin D supplementation. Further treatment to follow depending on hospital course. Job ID: [id number]
--- NOTE | 2020-02-01 21:00 | PRG ---
DATE OF SERVICE: 02/01/2020 SUBJECTIVE: The patient was seen this evening during rounds. He was sitting up in bed with no signs of acute distress. Earlier, he had some episodes of hypotension, which have resolved. His blood pressure is 97/47 at the time of my evaluation. The patient denies any lightheadedness, dizziness, or weakness. He is currently undergoing peritoneal dialysis. Dr. Helton has made some adjustments to this dialysis. OBJECTIVE: VITAL SIGNS: Temperature 98, pulse 60, respirations 16, oxygen saturation 93% on room air, and blood pressure 97/47. GENERAL: Well-appearing elderly male, sitting up in bed with no signs of acute distress. PULMONARY: Equal chest rise and fall. Clear breath sounds bilaterally. No signs of acute respiratory distress. ASSESSMENT: 1. Status post mechanical fall from standing. 2. Left distal periprosthetic femur fracture, status post repair. 3. Left ankle sprain. 4. Acute adrenal insufficiency, stable. 5. Non ST-elevation myocardial infarction due to demand ischemia, stable. 6. Acute blood loss anemia. 7. Hypotension, likely due to volume depletion and acute blood loss anemia. 8. History of end-stage renal disease on peritoneal dialysis, obstructive sleep apnea, pacemaker, spinal stenosis, diabetes, gastric ulcers, and gastric bypass. PLAN: Continue current diet. Continue 1 L free water restriction. However, the patient can continue to have juice and Gatorade. Continue current pain control. If the patient becomes hypotensive again overnight, we will complete a CBC and he possibly may need some blood versus additional IV fluids. I did discuss this with the patient as well. If he remains hemodynamically stable overnight, we will complete blood work in the morning. Job ID: [id number]
[2020-02-01] MEDS: Atorvastatin Calcium 40 MG TAB PO SCH (21:04)
[2020-02-01] MEDS: Tamsulosin HCl 0.4 MG CAP PO SCH (21:04)
[2020-02-01] MEDS ORDERED: traMADol HCl 50 MG TAB PO SCH (21:15)
[2020-02-02] MEDS: Acetaminophen 325 MG TAB PO SCH ×4 (00:03→16:17)
[2020-02-02] MEDS: Acetaminophen/Codeine 30-300mg Tablet PO PRN (00:03)
[2020-02-02] MEDS: Hydrocortisone Sod Succ/PF 100 mg/2 ml Vial IVP SCH ×2 (03:55→11:53)
[2020-02-02] MEDS: Insulin Regular 300 UNITS/3 ML VIAL SC PRN ×3 (06:10→21:21)
[2020-02-02 06:19] LABS: #Lymphocytes 0.7 thou/uL (1.20-3.40); #Monocytes 0.3 thou/uL (0.11-0.59); #Neutrophils 9.6 thou/uL (1.40-6.50); %Basophils 0.2 % (0.0-1.0); %Eosinophils 0.2 % (0.0-10.0); %Lymphocytes 6.5 % (21.0-51.0); %Monocytes 3.2 % (0.0-10.0); %Neutrophils 89.9 % (42.0-75.0); Hemoglobin 6.9 g/dL (14.0-18.0); Mean Corpuscular HGB CONC 34.5 g/dL (32.0-36.0); Mean Corpuscular Volume 98.4 fL (78.0-98.0); Mean Platelet Volume 8.3 fL (7.4-10.4); Platelet Count 136 thou/uL (130-400); RBC Distribution Width 12.8 % (11.5-14.5); Red Blood Cell (RBC) Count 2.04 mill/uL (4.70-6.10); White Blood Cell (WBC) Count 10.6 thou/uL (4.8-10.8)
[2020-02-02 06:47] LABS: Iron 86 ug/dL (65-175); Iron Binding Capacity, Total 130 mcg/dL (261-462)
[2020-02-02 06:48] LABS: Anion Gap 23 mmol/L (10-20); BUN (Urea Nitrogen) 79 mg/dL (8.4-25.7); Calc. Creatinine Clearance 10 mL/min (70-130); Carbon Dioxide 20 mmol/L (23-31); Chloride 95 mmol/L (98-107); Estimated GFR-MDRD 5; Glucose 208 mg/dL (83-110); Iron Binding Capacity, Total 133 mcg/dL (261-462); Potassium 4.6 mmol/L (3.5-5.1); Sodium 133 mmol/L (136-145)
[2020-02-02 06:53] LABS: Calcium 5.8 mg/dL (7.8-10.44); Phosphorus 9.5 mg/dL (2.3-4.7)
[2020-02-02] MEDS ORDERED: Calcium Chloride 13.6 MEQ in Sodium Chloride 0.9% 100 ML IVPB SCH (07:30)
[2020-02-02] MEDS: Allopurinol 100 MG TAB PO SCH (09:23)
[2020-02-02] MEDS: Calcium Carbonate 600 MG + Vit D TAB PO SCH ×2 (09:23→09:26)
[2020-02-02] MEDS: Polyethylene Glycol 3350 17 GM Packet PO SCH (09:23)
[2020-02-02] MEDS: Folic Acid/Vit B Comp W-C PO SCH (09:23)
[2020-02-02] MEDS: Thiamine 100 MG TAB PO SCH (09:23)
[2020-02-02] MEDS: Calcitriol 0.25 MCG CAP PO SCH (09:24)
[2020-02-02] MEDS: Gabapentin 100 MG CAP PO SCH ×3 (09:24→21:15)
[2020-02-02] MEDS: Senokot S 8.6-50 MG TAB PO SCH ×2 (09:24→21:15)
[2020-02-02] MEDS: Sodium Bicarbonate Tab 325 MG TAB PO SCH ×3 (09:24→21:16)
[2020-02-02] MEDS: Finasteride 5 MG TAB PO SCH (09:24)
[2020-02-02] MEDS: Magnesium Oxide 400 MG TAB PO SCH ×2 (09:24→21:15)
[2020-02-02] MEDS: Acetaminophen/Codeine 30-300mg Tablet PO SCH ×3 (09:25→21:00)
[2020-02-02] MEDS: Ascorbic Acid 500 mg Chewable Tablet PO SCH ×2 (09:26→17:03)
[2020-02-02] MEDS: Insulin Glargine 10 UNITS in Pre-Filled Syringe 1 EACH SC SCH (10:37)
[2020-02-02] MEDS: Sevelamer Carbonate 800 MG TAB PO SCH ×3 (10:37→17:02)
--- NOTE | 2020-02-02 11:09 | PRG ---
DATE OF SERVICE: 02/02/2020 SUBJECTIVE: The patient remains on the surgical floor. He is awake, alert, in no distress, on his laptop computer. The patient is postoperative day #3, status post open reduction and internal fixation of his left distal femur fracture. The patient had no overnight events. He continues to complain of burning-like sensation to his left ankle. Orthopedic Surgery is aware of the pain and reports there is nothing to do in terms of surgical treatment as this is neuropathic pain. The patient continues to tolerate his diabetic high renal protein diet. The patient's blood pressures have improved. OBJECTIVE: VITAL SIGNS: Temperature 97.5, pulse 67, respirations 18, SpO2 of 98% on room air, blood pressure 119/56. GENERAL: Elderly male, awake, alert, in no distress, sitting up in hospital bed. CARDIOVASCULAR: Regular rate and regular rhythm. RESPIRATORY: Good inspiratory and expiratory effort. Respirations are even and nonlabored. EXTREMITIES: Moves all extremities, neurovascularly intact x4. Left lower extremity in a knee immobilizer. NEUROLOGIC: GCS 15, no focal deficits. LABORATORY DATA: WBC 10.6, RBC 2.04, hemoglobin 6.9, hematocrit 20.1, platelets 136. Sodium 133, potassium 4.6, chloride 95, carbon dioxide 20, anion gap 23, BUN 79, creatinine 10.46, estimated GFR 5, glucose 208, calcium 5.8, phosphorus 9.5, magnesium 2.0, iron 86, total iron binding capacity 130, percent saturation 66, ferritin 966.59. IMPRESSION: 1. Status post mechanical fall from standing. 2. Left distal periprosthetic femur fracture, postoperative day #3, status post open reduction and internal fixation. 3. Adrenal insufficiency, resolved. 4. End-stage renal disease, on peritoneal dialysis with persistent hyperphosphatemia and elevated BUN and creatinine. 5. Metabolic acidosis. 6. Acute blood loss anemia due to trauma and postop. 7. Hyperglycemia. 8. Peripheral neuropathy. 9. Hypocalcemia. 10. Hyponatremia. 11. History of obstructive sleep apnea, pacemaker, spinal stenosis, gastric ulcers, gastric bypass, and End-stage renal disease. PLAN: Continue supportive care. We will schedule patient's Tylenol 3 and also have one tab available for breakthrough pain. We will also restart patient's nortriptyline to see if this will help with his burning neuropathic pain to his left ankle. Continue his diabetic high renal protein diet. Continue 1 L free water restriction with unlimited Gatorade due to his hyponatremia. We will transfuse 1 unit packed red blood cell for his hemoglobin of 6.9. We will hold the patient' s heparin doses today and recheck labs in the morning. Once the patient's hemoglobin and hematocrit are stable, we will restart patient's heparin for VTE prophylaxis. Nephrology is managing the patient's peritoneal dialysis and electrolytes and plans to make adjustments. Replace calcium. The plan was discussed with the patient and family who agrees. The plan was also discussed with Dr. Lee over the phone, who agrees. Job ID: [id number] MTDD
--- NOTE | 2020-02-02 14:10 | EKG ---
Test Reason : RHYTHMCHANGE Blood Pressure : / mmHG Vent. Rate : 082 BPM Atrial Rate : 064 BPM P-R Int : 000 ms QRS Dur : 150 ms QT Int : 496 ms P-R-T Axes : 000 061 069 degrees QTc Int : 579 ms Wide QRS rhythm with occasional Premature ventricular complexes Right bundle branch block Abnormal ECG #3 Confirmed by LONNY VO DO ([id number]), legal editor HAJA SHEN ([id number] on 02/02/2020 2:10:36 PM Referred By: Confirmed By:LONNY VO DO
--- NOTE | 2020-02-02 14:10 | EKG ---
Test Reason : Blood Pressure : / mmHG Vent. Rate : 060 BPM Atrial Rate : 060 BPM P-R Int : 000 ms QRS Dur : 170 ms QT Int : 556 ms P-R-T Axes : 000 017 109 degrees QTc Int : 556 ms AV dual-paced rhythm with prolonged AV conduction Abnormal ECG Confirmed by LONNY VO DO ([id number]), magazine editor HAJA SHEN ([id number]) on 02/02/2020 2:10:25 PM Referred By: Confirmed By:LONNY VO DO
--- NOTE | 2020-02-02 14:50 | PRG ---
DATE OF SERVICE: 02/02/2020 SERVICE: Nephrology. SUBJECTIVE: This is a 74-year-old male with left lower extremity trauma after a fall, seen in followup for management of end-stage renal disease. The patient is on regular PD prior to admission. No new complaint. Denied nausea, vomiting, dizziness or abdominal pain. Left lower extremity pain is controlled. OBJECTIVE: VITAL SIGNS: Temperature 97.7, pulse 60, respiratory rate 16, SpO2 of 96% on room air, and blood pressure 100/52. GENERAL: Obese male patient, in no obvious distress. Afebrile. Anicteric. Acyanotic. HEENT: Normocephalic and atraumatic. Oral mucosa is moist. CARDIOVASCULAR: Regular rhythm and rate with normal heart sounds 1 and 2. RESPIRATORY: Good air entry bilaterally with no crackle or rhonchi or use of accessory muscles. GI: Obese, soft, nondistended with normal bowel sounds. PD catheter is in place. EXTREMITIES: Left lower extremity covered with dressing and knee brace. No obvious edema is appreciated. SPECIMEN TECHNICIAN: Conscious, alert, and oriented x3 with appropriate mental status. Cranial nerves 2 through 12 are grossly intact. DIAGNOSTIC DATA: CBC today showed WBC count of 10.6, hemoglobin of 6.9, MCV of 98, and platelet of 136. Chemistry today showed sodium of 133, potassium of 4.6, chloride of 95, CO2 of 20, BUN of 79, creatinine of 10.46, glucose of 208, calcium of 5.8, phosphorus of 9.5, and magnesium of 2.0. Iron chemistry showed serum iron of 86, TIBC of 130 with saturation of 66%, and ferritin of 966.59. ASSESSMENT: 1. Hypocalcemia: This is multifactorial from poor oral intake and vitamin D deficiency. 2. Hyperphosphatemia: Due to vitamin D deficiency, secondary hyperparathyroidism, chronic kidney disease, and inadequate dialysis treatment. 3. Metabolic acidosis: Due to inadequate dialysis and end-stage renal disease, improving. 4. Hyponatremia, mild: Most likely due to volume contraction with appropriate ADH secretion. 5. Acute blood loss anemia: Hemoglobin went down from 8.1 yesterday to 6.9. On presentation, the patient had hemoglobin of 6.2 and had received several blood transfusions. 6. Chronic anemia due to anemia of chronic kidney disease. 7. Hypertension: Blood pressure is soft currently, hence antihypertensives were held. 8. Hypotension: Most likely due to volume contraction related to acute blood loss anemia. PLAN: 1. We will replete serum calcium level. We will also get ionized calcium to help with repletion. 2. We defer blood transfusion to primary attending/Trauma team. 3. We will continue phosphate binder as well as vitamin D supplementation. 4. We will continue increased dose of peritoneal dialysis. The patient is currently getting five exchanges with prolonged dwell time of 1 hour 30 minutes totaling 13 hours of peritoneal dialysis treatment. We will recheck electrolytes tomorrow. 5. We will continue to hold antihypertensives until blood pressure stabilizes. We defer glycemic management to primary attending. Job ID: [id number]
--- NOTE | 2020-02-02 21:04 | PRG ---
DATE OF SERVICE: 02/02/2020 SUBJECTIVE: The patient was seen this evening during rounds. He was sitting up in bed with no signs of acute distress. The patient reported no acute events. He did receive blood today for a hemoglobin of 6.9. His blood pressures have been more stable. OBJECTIVE: VITAL SIGNS: Temperature 98, pulse 60, respirations 18, oxygen saturation 100% on room air, and blood pressure 115/57. GENERAL: Well-appearing elderly male, lying in bed with no signs of acute distress. PULMONARY: Equal chest rise and fall. No signs of acute respiratory distress. ASSESSMENT: 1. Status post mechanical fall from standing. 2. Left distal periprosthetic femur fracture, status post repair. 3. Left ankle sprain. 4. Acute adrenal insufficiency, stable. 5. Non-ST elevation myocardial infarction due to demand ischemia, stable. 6. Acute blood loss anemia, status post 1 unit of packed red blood cells today. 7. History of end-stage renal disease, on peritoneal dialysis, Obstructive sleep apnea, Pacemaker, Spinal stenosis, Diabetes, Gastric ulcer, and Gastric bypass. PLAN: Continue current diet. Tylenol No. 3 was scheduled today and the patient was also started on his nortriptyline. At the time of my evaluation, pain management seems to be much improved. We will hold his heparin as he just received blood products. He is receiving peritoneal dialysis now. Repeat blood work in the morning. Closely monitor hemodynamics. Hydrocortisone has been discontinued. Job ID: [id number] MTDD
[2020-02-02] MEDS: Atorvastatin Calcium 40 MG TAB PO SCH (21:14)
[2020-02-02] MEDS: Nortriptyline HCl 25 MG CAP PO SCH (21:15)
[2020-02-02] MEDS: Tamsulosin HCl 0.4 MG CAP PO SCH (21:20)
[2020-02-03] MEDS: Acetaminophen 325 MG TAB PO SCH ×5 (01:00→23:37)
[2020-02-03] MEDS: Acetaminophen/Codeine 30-300mg Tablet PO SCH ×4 (01:15→20:30)
[2020-02-03 04:17] LABS: Anion Gap 22 mmol/L (10-20); BUN (Urea Nitrogen) 80 mg/dL (8.4-25.7); Calc. Creatinine Clearance 11 mL/min (70-130); Carbon Dioxide 20 mmol/L (23-31); Chloride 94 mmol/L (98-107); Estimated GFR-MDRD 5; Glucose 160 mg/dL (83-110); Magnesium 2.1 mg/dL (1.6-2.6); Phosphorus 8.6 mg/dL (2.3-4.7); Potassium 4.1 mmol/L (3.5-5.1); Sodium 132 mmol/L (136-145)
[2020-02-03 04:26] LABS: Calcium 5.7 mg/dL (7.8-10.44)
[2020-02-03 04:39] LABS: Band 2 % (5-11); Eosinophils 1 % (0-10); Hemoglobin 8.6 g/dL (14.0-18.0); Lymphocytes 15 % (21-51); MDiff Complete? YES; Mean Corpuscular HGB CONC 33.2 g/dL (32.0-36.0); Mean Corpuscular Hemoglobin 32.3 pg (27.0-31.0); Mean Corpuscular Volume 97.2 fL (78.0-98.0); Mean Platelet Volume 8.2 fL (7.4-10.4); Monocytes 5 % (0-10); Neutrophil 77 % (42-75); Platelet Count 130 thou/uL (130-400); Platelet Morphology Comment Appears Adequate; RBC Distribution Width 12.9 % (11.5-14.5); Red Blood Cell (RBC) Count 2.66 mill/uL (4.70-6.10); White Blood Cell (WBC) Count 11.1 thou/uL (4.8-10.8)
[2020-02-03 04:59] LABS: Actual Bicarbonate (HCO3a) 17.6 mEq/L (22-28); Base Excess (BEa) -6.2 mEq/L (-2.0 to +3.0); CO2 Tension 28.8 mmHg (35.0-45.0); Calcium, Ionized (arterial) 0.81 mmol/L (1.12-1.30); Carboxyhemoglobin (COHb) 0.6 gm% (0.0-3.0); Hemoglobin (Hb) 9.5 g/dL (14.0-18.0); Potassium - ABG Lab 3.85 mmol/L (3.70-5.30)
[2020-02-03 05:01] LABS: Puncture Site LRA
[2020-02-03] MEDS: Insulin Regular 300 UNITS/3 ML VIAL SC PRN ×2 (06:13→17:39)
[2020-02-03] MEDS ORDERED: Calcium Chloride 1 GM/10 ML Abboject SYRINGE IVP SCH (06:15)
[2020-02-03] MEDS ORDERED: Sodium Chloride 0.9% 500 ML IV SCH (07:30)
[2020-02-03] MEDS: Polyethylene Glycol 3350 17 GM Packet PO SCH (09:09)
[2020-02-03] MEDS: Sevelamer Carbonate 800 MG TAB PO SCH ×3 (09:10→17:38)
[2020-02-03] MEDS: Calcium Carbonate 600 MG + Vit D TAB PO SCH (09:10)
[2020-02-03] MEDS: Thiamine 100 MG TAB PO SCH (09:10)
[2020-02-03] MEDS: Magnesium Oxide 400 MG TAB PO SCH ×2 (09:10→20:31)
[2020-02-03] MEDS: Calcitriol 0.25 MCG CAP PO SCH (09:10)
[2020-02-03] MEDS: Senokot S 8.6-50 MG TAB PO SCH ×2 (09:10→20:31)
[2020-02-03] MEDS: Gabapentin 100 MG CAP PO SCH ×3 (09:11→20:31)
[2020-02-03] MEDS: Folic Acid/Vit B Comp W-C PO SCH (09:11)
[2020-02-03] MEDS: Sodium Bicarbonate Tab 325 MG TAB PO SCH ×3 (09:11→20:31)
[2020-02-03] MEDS: Allopurinol 100 MG TAB PO SCH (09:11)
[2020-02-03] MEDS: Ascorbic Acid 500 mg Chewable Tablet PO SCH ×2 (09:11→17:39)
[2020-02-03] MEDS: Finasteride 5 MG TAB PO SCH (09:12)
[2020-02-03] MEDS ORDERED: Sodium Chloride 0.9% 1,000 ML IV SCH (12:15)
[2020-02-03] MEDS: Insulin Glargine 10 UNITS in Pre-Filled Syringe 1 EACH SC SCH (12:24)
[2020-02-03] MEDS: Heparin 5,000 UNITS/ML VIAL SC SCH ×2 (12:24→20:32)
[2020-02-03] MEDS: Acetaminophen/Codeine 30-300mg Tablet PO PRN (12:35)
--- NOTE | 2020-02-03 12:49 | PRG ---
DATE OF SERVICE: 02/03/2020 SERVICE: Nephrology. SUBJECTIVE: A 74-year-old male, seen in followup for end-stage renal disease management. The patient developed left lower extremity fracture after a fall from standing position. He is status post open reduction and internal fixation of left lower extremity. Postoperative state was complicated by development of anemia as well as low blood pressures. Reports no new complaint. Appetite and oral intake are adequate. Denied headache, abdominal pain, chest pain, or shortness of breath. OBJECTIVE: VITAL SIGNS: Temperature 98.2, pulse rate 60, respiratory rate 15, SpO2 of 95% on room air. Blood pressure showed significant drop in blood pressure from lying down to standing. I and O in the last 24 hours showed total intake of 1000 with total output of 700 accounting for UF with dialysis. GENERAL: Male patient in no obvious distress. Afebrile. Anicteric. Acyanotic. HEENT: Normocephalic and atraumatic. Oral mucosa is moist. NECK: Supple with no JVD. CARDIOVASCULAR: Regular rhythm and rate with normal heart sounds, 1 and 2. RESPIRATORY: Good air entry bilaterally with no crackle or rhonchi or use of accessory muscles. GI: Obese, soft, nontender, and nondistended with normal bowel sounds. PD catheter noted. EXTREMITIES: Left lower extremity covered with dressing and a knee brace. No edema or erythema of other extremities appreciated. TURNER MACHINE OPERATOR: Conscious and alert and oriented x3 with appropriate mental status. DIAGNOSTIC DATA: CBC showed WBC count of 11.1, hemoglobin of 8.6, and platelet of 130. Arterial blood gas showed ionized calcium of 0.81, pH of 7.4, and pCO2 of 28.8. Chemistry showed sodium of 132, potassium 4.1, chloride 94, CO2 of 20, BUN 80, creatinine 10.22, glucose 160, calcium 5.7, phosphorus 8.6, magnesium 2.1. PTH intact is 714. Vitamin D obtained on January 29 was 16.6. ASSESSMENT: 1. Orthostatic hypotension due to volume depletion. 2. History of hypertension: Blood pressure currently is soft. 3. Hyperphosphatemia. 4. 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 5. Acute blood loss anemia. 6. Anemia of chronic kidney disease. 7. Secondary hyperparathyroidism. PLAN: 1. We will continue to hold antihypertensives. 2. We will give a L bolus of normal saline. 3. We will continue to replete serum calcium with calcium chloride. 4. We will start Sensipar on this patient for secondary hyperparathyroidism. 5. We will also continue erythroid stimulating agent given anemia of chronic kidney disease. 6. We will dialyze the patient today with five exchanges, but with prolonged dwelling time to increase clearance. Further treatment to follow depending on hospital course. 7. We will recheck electrolytes tomorrow. Job ID: [id number]
--- NOTE | 2020-02-03 15:36 | PRG ---
DATE OF SERVICE: 02/03/2020 SUBJECTIVE: The patient remains on the surgical floor. He is awake, alert, in no distress at this time. The patient is postop day #4, status post open reduction and internal fixation of his left distal femur fracture. The patient has not been able to work with Physical Therapy since he has been postop due to his soft blood pressures and low hemoglobin. The patient's pain is currently controlled at this time. Physical Therapy is currently at bedside. The patient did become dizzy and hypotensive when physical therapy got him up to sit in the bedside chair. Blood pressure improved after getting the patient back into bed. The patient reports not having much of an appetite. The patient's blood sugars have improved some now that he has been off the hydrocortisone. OBJECTIVE: VITAL SIGNS: Temperature 98.2, pulse 60, respirations 15, SpO2 98% on room air, blood pressure 105/55, sitting up blood pressure is 78/49. GENERAL: Elderly male, awake, alert, no distress. RESPIRATORY: Good inspiratory and expiratory effort, bilateral breath sounds clear. CARDIOVASCULAR: Regular rate. Regular rhythm. EXTREMITIES: Moves all extremities, neurovascularly intact x4. Left lower extremity in knee immobilizer. NEUROLOGIC: GCS 15, no focal deficits. LABORATORY DATA: WBC 11.1, RBC 2.66, hemoglobin 8.6, hematocrit 25.8, platelets 130. ABG: Bicarb 17.6, pH of 7.40, CO2 28.8, base excess -6.2, ionized calcium 0.81. Sodium 132, potassium 4.1, chloride 94, carbon dioxide 20, anion gap 22, BUN 80, creatinine 10.22, estimated GFR 5, glucose 160, calcium 5.7, phosphorus 8.6, magnesium 2.1, PTH intact 714.0. IMPRESSION: 1. Status post mechanical fall from standing. 2. Left distal periprosthetic femur fracture, postop day #4, status post open reduction and internal fixation. 3. Adrenal insufficiency. 4. Hypoparathyroidism, secondary. 5. End-stage renal disease, on peritoneal dialysis. 6. Orthostatic hypotension due to volume depletion. 7. Acute blood loss anemia, postoperatively, improved. 8. Peripheral neuropathy. 9. Hypocalcemia. 10. Hyponatremia. 11. History of obstructive sleep apnea, pacemaker, spinal stenosis, gastric ulcers, gastric bypass, end-stage renal disease. PLAN: Continue supportive care and pain regimen. We will fluid resuscitate the patient with normal saline 1 L and continue free water restriction 1 L. The patient may have limit Gatorade due to his hyponatremia. We will replace calcium 2 g. We will continue VTE prophylaxis and monitor hemoglobin and hematocrit closely. We will continue to monitor blood glucoses and we will decrease the patient's Lantus if needed. Repeat full labs in the morning. Plan was discussed with the patient who agrees. Dr. Helton to continue managing the patient's peritoneal dialysis and adjustments. Job ID: [id number] MTDD
[2020-02-03] MEDS: Atorvastatin Calcium 40 MG TAB PO SCH (20:31)
[2020-02-03] MEDS: Tamsulosin HCl 0.4 MG CAP PO SCH (20:32)
[2020-02-03] MEDS: Nortriptyline HCl 25 MG CAP PO SCH (20:32)
[2020-02-03] MEDS: Cyclobenzaprine 10 MG TAB PO PRN (21:09)
[2020-02-03] MEDS ORDERED: Fentanyl 100 MCG/2 ML VIAL SLOW IVP SCH (21:45)
--- NOTE | 2020-02-03 23:59 | PRG ---
DATE OF SERVICE: 02/03/2020 SUBJECTIVE: The patient was seen this evening during rounds. He was resting comfortably in bed, asleep, with no signs of acute distress. Nursing reported no acute events. OBJECTIVE: VITAL SIGNS: Temperature 97.4, pulse 60, respirations 16, oxygen saturation 97% on room air, and blood pressure 102/63. GENERAL: Well-appearing elderly male, lying in bed, asleep with no signs of acute distress. PULMONARY: Equal chest rise and fall. No signs of acute respiratory distress. ASSESSMENT: 1. Status post mechanical fall from standing. 2. Left distal periprosthetic femur fracture, status post repair. 3. Left ankle sprain, stable. 4. Acute adrenal insufficiency, stable. 5. Non-ST elevation myocardial infarction due to demand ischemia, improved. 6. Acute blood loss anemia, stable. 7. History of end-stage renal disease, on peritoneal dialysis. 8. Obstructive sleep apnea. 9. Pacemaker. 10. Spinal stenosis. 11. Diabetes. 12. Gastric ulcer. 13. Gastric bypass. PLAN: 1. Continue current diet and pain regimen. 2. Continue physical and occupational therapy. Continue peritoneal dialysis per Dr. Helton. 3. The patient is pending placement in acute rehab facility. He is ready for discharge at this time. Job ID: [id number]
[2020-02-04] MEDS: Acetaminophen/Codeine 30-300mg Tablet PO SCH ×4 (03:30→21:14)
[2020-02-04] MEDS ORDERED: Sodium Chloride 0.9% 1,000 ML IV SCH (03:30)
[2020-02-04 03:57] LABS: Hemoglobin A1c 5.8 % (4.0-6.0)
[2020-02-04 04:06] LABS: Eosinophils 1 % (0-10); Hemoglobin 9.7 g/dL (14.0-18.0); Lymphocytes 11 % (21-51); MDiff Complete? YES; Mean Corpuscular HGB CONC 33.8 g/dL (32.0-36.0); Mean Corpuscular Hemoglobin 33.4 pg (27.0-31.0); Mean Corpuscular Volume 98.9 fL (78.0-98.0); Mean Platelet Volume 8.6 fL (7.4-10.4); Monocytes 4 % (0-10); Neutrophil 84 % (42-75); Nucleated RBC 1 % (0); Platelet Count 123 thou/uL (130-400); RBC Distribution Width 13.1 % (11.5-14.5); White Blood Cell (WBC) Count 9.7 thou/uL (4.8-10.8)
[2020-02-04 04:20] LABS: Anion Gap 21 mmol/L (10-20); BUN (Urea Nitrogen) 75 mg/dL (8.4-25.7); Calc. Creatinine Clearance 11 mL/min (70-130); Carbon Dioxide 20 mmol/L (23-31); Chloride 96 mmol/L (98-107); Estimated GFR-MDRD 5; Glucose 101 mg/dL (83-110); Magnesium 2.1 mg/dL (1.6-2.6); Phosphorus 7.4 mg/dL (2.3-4.7); Potassium 4.2 mmol/L (3.5-5.1); Sodium 133 mmol/L (136-145)
[2020-02-04 04:22] LABS: Calcium 5.7 mg/dL (7.8-10.44)
[2020-02-04] MEDS ORDERED: Calcium Chloride 1 GM/10 ML Abboject SYRINGE IVP SCH (04:30)
[2020-02-04] MEDS: Acetaminophen 325 MG TAB PO SCH ×4 (05:00→23:17)
[2020-02-04] MEDS: Insulin Regular 300 UNITS/3 ML VIAL SC PRN ×2 (06:13→18:31)
[2020-02-04] MEDS ORDERED: Cinacalcet HCl 30 MG TAB PO SCH (08:00)
[2020-02-04] MEDS: Thiamine 100 MG TAB PO SCH (08:37)
[2020-02-04] MEDS: Finasteride 5 MG TAB PO SCH (08:38)
[2020-02-04] MEDS: Ascorbic Acid 500 mg Chewable Tablet PO SCH ×2 (08:38→17:33)
[2020-02-04] MEDS: Senokot S 8.6-50 MG TAB PO SCH ×2 (08:39→21:15)
[2020-02-04] MEDS: Polyethylene Glycol 3350 17 GM Packet PO SCH (08:40)
[2020-02-04] MEDS: Calcium Carbonate 600 MG + Vit D TAB PO SCH (08:40)
[2020-02-04] MEDS: Magnesium Oxide 400 MG TAB PO SCH ×2 (08:40→21:16)
[2020-02-04] MEDS: Gabapentin 100 MG CAP PO SCH ×3 (08:40→21:17)
[2020-02-04] MEDS: Ferrous Sulfate 325 MG TAB PO SCH ×2 (08:42→17:33)
[2020-02-04] MEDS: Allopurinol 100 MG TAB PO SCH (08:42)
[2020-02-04] MEDS: Sodium Bicarbonate Tab 325 MG TAB PO SCH ×3 (08:42→21:15)
[2020-02-04] MEDS: Folic Acid/Vit B Comp W-C PO SCH (08:42)
[2020-02-04] MEDS: Heparin 5,000 UNITS/ML VIAL SC SCH ×2 (08:43→21:17)
[2020-02-04] MEDS: Insulin Glargine 6 UNITS in Pre-Filled Syringe 1 EACH SC SCH (08:43)
[2020-02-04] MEDS: EPOETIN ALFA-EPBX (ESRD) 10,000 UNIT/ML VIAL SC SCH (08:52)
[2020-02-04] MEDS: Calcitriol 0.25 MCG CAP PO SCH (09:20)
[2020-02-04] MEDS: Sevelamer Carbonate 800 MG TAB PO SCH ×3 (09:20→17:33)
--- NOTE | 2020-02-04 11:48 | PRG ---
DATE OF SERVICE: 02/04/2020 SERVICE: Nephrology. SUBJECTIVE: A 74-year-old male, admitted due to left lower extremity trauma with fracture after a fall. Nephrology is seeing the patient for end-stage renal disease management as well as electrolyte derangements. The patient had an episode of generalized weakness and confusion as well as low blood pressure, which improved following colloid and crystalloid bolus. Reports feeling better now. Denied fever, headache, or shortness of breath. Has not had bowel movement since about 6 days. OBJECTIVE: VITAL SIGNS: Temperature 98.7, pulse 88, respiratory rate 20, SpO2 of 97% on room air, and blood pressure is 95/62. I and O in the last 24 hours showed total intake of that is inconclusive. GENERAL: Male patient in no obvious distress. Afebrile. HEENT: Normocephalic, atraumatic. Oral mucosa is moist. CARDIOVASCULAR: Regular rhythm and rate with normal heart sounds 1 and 2. RESPIRATORY: Fair air entry bilaterally with no obvious crackle or rhonchi or use of accessory muscles. GI: Full, soft, nondistended with normal bowel sounds. PD catheter noted. EXTREMITIES: Left lower extremity covered with dressing and knee brace. Mild to moderate edema of both elbows as well as thighs noted. BAND BOOKER: Conscious, alert, oriented x3 with appropriate mental status. Cranial nerves 2 through 12 are grossly intact. DIAGNOSTIC DATA: CBC showed WBC count of 9.7, hemoglobin of 9.7, and platelets of 123. Chemistry showed sodium 133, potassium 4.2, chloride 96, CO2 of 20, BUN 75, creatinine 9.9, glucose 101, calcium 5.7, phosphorus 7.4, magnesium 2.1, and albumin 2.1. ASSESSMENT: 1. Hypertension: Due to intravascular contraction: The patient has significant bleeding related to trauma as well as intravascular contraction related to hypoalbuminemia. Antihypertensives have been decreased significantly. 2. 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 Hypocalcemia has been persistent. That is not unexpected especially the patient with big muscle mass and had significant vitamin D deficiency, which related to severe mineralization on commencement of vitamin D. 3. Acute blood loss anemia, superimposed on anemia of chronic kidney disease. 4. End-stage renal disease, on peritoneal dialysis. Dialysis treatment seems adequate with BUN and creatinine trending down appropriately. 5. Hypoalbuminemia. 6. Hyperphosphatemia: Improving with phosphate binder. PLAN: 1. Continue current treatments. We will do peritoneal dialysis later today with current prescription of five exchanges with 1 hour 32 minutes dwell time. 2. We will also give albumin today to help with mobilization of third space fluid and to improve blood pressure. 3. We will continue to hold antihypertensives except very low dose of metoprolol. 4. Phosphate binder, calcitriol, and vitamin D supplementation to continue. 5. We will also replete serum calcium with calcium chloride. Further treatment to follow depending on hospital course. Job ID: [id number]
[2020-02-04] MEDS: Albumin 25% 25 GM/100 ML BOT IVPB SCH ×3 (12:13→22:47)
[2020-02-04] MEDS: Hydrocortisone Sod Succ/PF 100 mg/2 ml Vial IVP SCH ×2 (12:13→21:13)
[2020-02-04] MEDS: Cyclobenzaprine 10 MG TAB PO PRN (12:24)
--- NOTE | 2020-02-04 16:52 | PRG ---
DATE OF SERVICE: 02/04/2020 SUBJECTIVE: The patient remains on the surgical floor, awake, alert, in no distress. He is postop day #5, status post open reduction and internal fixation of his left distal femur fracture. The patient's blood pressures remained soft. The patient was hypotensive overnight and received 1 L of normal saline. The patient also is getting 25 g of albumin this morning and also 2 g of calcium for his hypocalcemia. The patient continues to have a very decreased appetite. OBJECTIVE: VITAL SIGNS: Temperature 98.7, pulse 88, respirations 20, SpO2 of 97% on room air, blood pressure 95/62. GENERAL: Elderly male, awake, alert, in no distress. RESPIRATORY: Good inspiratory and expiratory effort, respirations are even and nonlabored. CARDIAC: Regular rate. Regular rhythm. EXTREMITIES: Moves all extremities, neurovascularly intact x4. Left lower extremity in knee immobilizer. NEUROLOGIC: GCS 15. No focal deficits. LABORATORY DATA: WBC 9.7, RBC 2.90, hemoglobin 9.7, hematocrit 28.6, platelets 123. Sodium 133, potassium 4.2, chloride 96, carbon dioxide 20, anion gap 21, BUN 75 , creatinine 9.90, estimated GFR 5, glucose 101. Hemoglobin A1c 5.8. Calcium 5.7 , phosphorus 7.4, magnesium 2.1, albumin 2.1. IMPRESSION: 1. Status post mechanical fall from standing. 2. Left distal periprosthetic femur fracture, postop day #5, status post open reduction and internal fixation. 3. Ongoing adrenal insufficiency. 4. Left arm superficial thrombosis cephalic vein. 5. End-stage renal disease, on peritoneal dialysis. 6. Acute blood loss anemia, postop, improved. 7. Peripheral neuropathy. 8. Hypocalcemia. 9. Hyponatremia. 10. History of obstructive sleep apnea, pacemaker, spinal stenosis, gastric ulcers and gastric bypass surgery, end-stage renal disease. PLAN: Continue supportive care and pain regimen. Continue physical and occupational therapy. Continue to encourage nutritional intake. Continue peritoneal dialysis. Continue free water restriction to 1 L with unlimited Gatorade. We will decrease the patient's Lantus q.a.m. as his blood glucoses have been lower. We will restart the patient's hydrocortisone as he is still having low blood pressures. We will continue to monitor Accu-Cheks. Repeat labs in the morning. The patient is pending placement to inpatient rehab. The patient was examined by Dr. Lee during morning rounds. Job ID: [id number] MTDD
[2020-02-04] MEDS ORDERED: Lidocaine 1% (PF) 30 ML VIAL ONE (20:19)
[2020-02-04] MEDS ORDERED: Lidocaine 1% (PF) 30 ML VIAL FS SCH (21:15)
[2020-02-04] MEDS: Tamsulosin HCl 0.4 MG CAP PO SCH (21:16)
[2020-02-04] MEDS: Atorvastatin Calcium 40 MG TAB PO SCH (21:16)
[2020-02-04] MEDS: Nortriptyline HCl 25 MG CAP PO SCH (21:19)
--- NOTE | 2020-02-04 22:47 | PRG ---
DATE OF SERVICE: 02/04/2020 SUBJECTIVE: The patient was seen this evening during rounds. He was lying in bed, resting comfortably with no signs of acute distress. Nursing reported the patient had IV steroids, as well as albumin ordered with no IV access. Several attempts were made and subsequently, Dr. Lebron and I, placed a central line in the right groin. The patient tolerated the procedure well. His pain is well controlled. Tolerating a diabetic renal diet. OBJECTIVE: VITAL SIGNS: Temperature 97.9, pulse 68, respirations 18, oxygen saturation 100% on room air, and blood pressure 119/59. GENERAL: Well-appearing elderly male, lying in bed with no signs of acute distress. PULMONARY: Equal chest rise and fall. No signs of acute respiratory distress. ASSESSMENT: 1. Status post left distal periprosthetic femur fracture, status post repair. 2. Status post mechanical fall. 3. Left ankle sprain. 4. Acute adrenal insufficiency, stable. 5. Non ST-elevation myocardial infarction due to demand ischemia, resolved. 6. Intermittent hypotension, likely due to volume depletion. 7. History of end-stage renal disease on peritoneal dialysis, obstructive sleep apnea, pacemaker, spinal stenosis, diabetes, gastric ulcers, and gastric bypass. PLAN: Continue current diet and pain regimen. Continue physical and occupational therapy. The patient is receiving peritoneal dialysis overnight. Repeat blood work in the morning. Dr. Helton has ordered additional albumin overnight. Job ID: [id number]
--- NOTE | 2020-02-05 02:53 | OP ---
DATE OF PROCEDURE: 02/04/2020 PROCEDURE: Right femoral central line placement. PREPROCEDURE DIAGNOSIS: Lack of IV access with requiring IV fluids and IV medications. POSTPROCEDURE DIAGNOSIS: Lack of IV access with requiring IV fluids and IV medications. COMPLICATIONS: None. ESTIMATED BLOOD LOSS: 10 mL. ANESTHESIA: Local with about 10 mL of 1% lidocaine without epi. INDICATIONS: Mr. Laguerre is a 74-year-old male who lost IV access earlier today. The patient receives peritoneal dialysis and has a fistula in his right upper extremity. Nursing was only limited to left upper extremity IV sticks. Subsequently after several tries by multiple nurses including the flight crew, it was not obtainable. A midline was attempted and could not be placed. The patient has albumin and IV steroids that are due. Dr. Lebron was contacted for possible placement of a central line. He agreed with the placement in the meantime and discussed the options with the patient. DESCRIPTION OF PROCEDURE: A time-out was performed identifying the correct procedure, the location with the nursing staff. The right groin was prepped with chlorhexidine and draped with full-length sterile sheet in the usual fashion. 1% lidocaine was administered subcutaneously for local anesthesia. The vein was accessed by palpation and landmarks verified by Dr. Lebron who was at bedside. A triple-lumen catheter was inserted via Seldinger technique. Dark pulsatile blood was drawn from all lumens and flushed easily with normal saline. The catheter was sutured in place, and sterile dressing was applied over the site prior to removal of drapes. The patient tolerated the procedure well, and there were no complications. Dr. Lebron was at the bedside for the entirety of the procedure and assisted as well. Job ID: [id number]
[2020-02-05] MEDS: Acetaminophen/Codeine 30-300mg Tablet PO SCH ×4 (03:13→20:49)
[2020-02-05] MEDS: Hydrocortisone Sod Succ/PF 100 mg/2 ml Vial IVP SCH ×2 (03:15→08:59)
[2020-02-05] MEDS: Albumin 25% 25 GM/100 ML BOT IVPB SCH ×2 (04:57→12:26)
[2020-02-05] MEDS: Acetaminophen 325 MG TAB PO SCH ×4 (05:08→23:06)
[2020-02-05 05:16] LABS: #Eosinphils 0.1 thou/uL (0.0-0.7); #Lymphocytes 0.7 thou/uL (1.20-3.40); #Monocytes 0.3 thou/uL (0.11-0.59); #Neutrophils 10.1 thou/uL (1.40-6.50); %Basophils 0.1 % (0.0-1.0); %Eosinophils 0.5 % (0.0-10.0); %Monocytes 2.9 % (0.0-10.0); %Neutrophils 90.5 % (42.0-75.0); Hemoglobin 8.3 g/dL (14.0-18.0); Mean Corpuscular HGB CONC 34.3 g/dL (32.0-36.0); Mean Corpuscular Hemoglobin 33.6 pg (27.0-31.0); Mean Corpuscular Volume 97.8 fL (78.0-98.0); Mean Platelet Volume 8.4 fL (7.4-10.4); Platelet Count 119 thou/uL (130-400); RBC Distribution Width 13.1 % (11.5-14.5); Red Blood Cell (RBC) Count 2.45 mill/uL (4.70-6.10); White Blood Cell (WBC) Count 11.1 thou/uL (4.8-10.8)
[2020-02-05 05:36] LABS: Anion Gap 19 mmol/L (10-20); BUN (Urea Nitrogen) 77 mg/dL (8.4-25.7); Calc. Creatinine Clearance 11 mL/min (70-130); Calcium 6.1 mg/dL (7.8-10.44); Carbon Dioxide 23 mmol/L (23-31); Chloride 94 mmol/L (98-107); Estimated GFR-MDRD 5; Glucose 175 mg/dL (83-110); Magnesium 2.2 mg/dL (1.6-2.6); Phosphorus 7.9 mg/dL (2.3-4.7); Potassium 4.9 mmol/L (3.5-5.1); Sodium 131 mmol/L (136-145)
[2020-02-05] MEDS: Insulin Regular 300 UNITS/3 ML VIAL SC PRN ×3 (06:28→17:39)
[2020-02-05] MEDS ORDERED: CALCIUM CHLORIDE IVPB SCH (08:15)
[2020-02-05] MEDS ORDERED: ADMIXTURE FEE IVPB SCH (08:15)
[2020-02-05] MEDS ORDERED: SODIUM CHLORIDE IVPB SCH (08:15)
--- NOTE | 2020-02-05 08:44 | PRG ---
DATE OF SERVICE: 02/05/2020 SERVICE: Nephrology. SUBJECTIVE: A 74-year-old male with fracture of the left lower extremity, seen in followup for management of end-stage renal disease, as well as electrolyte derangements. No new problem. Denied nausea, vomiting, or abdominal pain. Low blood pressures of yesterday has improved with crystalloid and colloid. OBJECTIVE: VITAL SIGNS: Temperature 97.6, pulse 77, respiratory rate 18, SpO2 of 100% on room air, blood pressure is 116/55. I and O in the last 24 hours showed total intake of 1020. Output is undocumented. The patient is on PD, and makes no urine. GENERAL: Obese male patient, in no obvious distress. Afebrile. Anicteric. Acyanotic. HEENT: Normocephalic and atraumatic. Oral mucosa is moist. CARDIOVASCULAR: Regular rhythm and rate with normal heart sounds 1 and 2. RESPIRATORY: Good air entry bilaterally with no obvious crackle or rhonchi or use of accessory muscles. GI: Obese, soft, nontender, nondistended with normal bowel sounds. PD catheter noted. EXTREMITIES: Left upper limb moderate edema as well as mild edema of right upper extremity noted. Left lower extremity dressing and left knee brace noted with little or no edema. Right lower extremity is grossly normal except prior amputation of big toe with no edema or erythema. CONTROLS DESIGNER: Conscious, alert, oriented x3, with appropriate mental status. Cranial nerves 2 through 12 are grossly intact. DIAGNOSTIC DATA: CBC showed WBC count of 11.1, hemoglobin of 8.3, MCV of 97.8, platelet of 119. Chemistry showed sodium 131, potassium 4.9, chloride 94, CO2 of 23, BUN 77, creatinine 10.01, glucose 175, calcium 6.1, phosphorus 7.9, magnesium 2.2. ASSESSMENT: 1. End-stage renal disease, on peritoneal dialysis. 2. Hyponatremia: Due to volume contraction with appropriate ADH secretion. The patient had hypotension, which improved with volume resuscitation with crystalloid and colloid. The patient, however, makes no urine, and the only way of getting excess fluid off is through peritoneal dialysis. cannot be provided as the patient has problem with hypotension. 3. Hypocalcemia: Due to vitamin D deficiency, bone remodeling and hungry bone syndrome associated with vitamin D supplementation. 4. Hyperphosphatemia. 5. Hypoalbuminemia. 6. Distal left femoral fracture, status post open reduction. 7. Hypotension: Improved with crystalloid and colloid. History of hypertension: Antihypertensives are held at this time. 8. Acute blood loss anemia, superimposed on anemia of chronic kidney disease. 9. Metabolic acidosis. PLAN: 1. Fluid restriction: To continue. 2. We will also continue alkali therapy due to persistence of metabolic acidosis. 3. Phosphate binder, calcitriol, vitamin D supplementation to continue. 4. We will dialyze the patient again for 13 hours for better clearance. 5. We will also replete serum calcium with calcium chloride. We will recheck electrolytes and albumin tomorrow morning. Further treatment to follow depending on hospital course. Job ID: [id number]
[2020-02-05] MEDS: Calcitriol 0.25 MCG CAP PO SCH (08:57)
[2020-02-05] MEDS: Sodium Bicarbonate Tab 325 MG TAB PO SCH ×3 (08:57→20:48)
[2020-02-05] MEDS: Ferrous Sulfate 325 MG TAB PO SCH ×2 (08:58→17:40)
[2020-02-05] MEDS: Magnesium Oxide 400 MG TAB PO SCH ×2 (08:58→20:49)
[2020-02-05] MEDS: Finasteride 5 MG TAB PO SCH (08:58)
[2020-02-05] MEDS: Thiamine 100 MG TAB PO SCH (08:58)
[2020-02-05] MEDS: Calcium Carbonate 600 MG + Vit D TAB PO SCH (08:58)
[2020-02-05] MEDS: Allopurinol 100 MG TAB PO SCH (08:58)
[2020-02-05] MEDS: Sevelamer Carbonate 800 MG TAB PO SCH ×3 (08:58→17:40)
[2020-02-05] MEDS: Gabapentin 100 MG CAP PO SCH ×3 (08:58→20:49)
[2020-02-05] MEDS: Folic Acid/Vit B Comp W-C PO SCH (08:58)
[2020-02-05] MEDS: Ascorbic Acid 500 mg Chewable Tablet PO SCH ×2 (08:59→17:40)
[2020-02-05] MEDS: Insulin Glargine 6 UNITS in Pre-Filled Syringe 1 EACH SC SCH (08:59)
[2020-02-05] MEDS: Heparin 5,000 UNITS/ML VIAL SC SCH ×2 (08:59→20:43)
[2020-02-05] MEDS: Polyethylene Glycol 3350 17 GM Packet PO SCH (09:00)
[2020-02-05] MEDS: Senokot S 8.6-50 MG TAB PO SCH ×2 (09:00→20:43)
--- NOTE | 2020-02-05 13:39 | ULT ---
Ultrasound Doppler duplex venous left upper extremity: 02/05/2020 HISTORY: 74-year-old male with left upper extremity pain and swelling. TECHNIQUE: Grayscale, color-flow, and spectral analysis, of major veins of left upper extremity. Compression and release applied to all veins except the subclavian. FINDINGS: There is noncompressibility and diminished blood flow of the cephalic vein proximal to the elbow, but not in the forearm. There is soft tissue edema in the forearm and antecubital fossa. No evidence of thrombosis in the basilic, ulnar, radial, brachial, axillary, subclavian, or internal jugular, veins. IMPRESSION: 1.) Positive for thrombosis of the cephalic vein in the left arm. 2.) Soft tissue edema in the left forearm.
[2020-02-05] MEDS: predniSONE 5 MG TAB PO SCH ×2 (14:19→20:49)
[2020-02-05] MEDS ORDERED: predniSONE 1 MG/ML ML PO SCH (15:00)
--- NOTE | 2020-02-05 17:52 | PRG ---
DATE OF SERVICE: SUBJECTIVE: The patient was seen during morning rounds, awake, alert, no distress. The patient is postop day #6 status post open reduction and internal fixation of his left distal femur fracture. The patient's blood pressures are starting to improve. The patient did lose his IV overnight and multiple peripheral attempts were made and also a midline attempt was made, which all failed. A right femoral line was placed in order for the patient to obtain his albumin and hydrocortisone for adrenal insufficiency. The patient's pain is well controlled. The patient does report some pain and swelling to his left arm. Nursing staff denies any infiltration of IV in that arm, but he did have multiple IV attempts in that arm last night. The patient is currently on his peritoneal dialysis at this time. OBJECTIVE: VITAL SIGNS: Temperature 97.5, pulse 62, respirations 18, SpO2 of 100% on room air, blood pressure 105/50. GENERAL: Elderly male, awake, alert, in no distress. RESPIRATORY: Good inspiratory and expiratory effort, respirations are even and nonlabored. CARDIAC: Regular rate, regular rhythm. EXTREMITIES: Moves all extremities, neurovascularly intact x4. Left lower extremity is in a knee immobilizer. NEUROLOGIC: No focal deficits. LABORATORY DATA: WBC 11.1, RBC 2.45, hemoglobin 8.3, hematocrit 24.0, platelets 119. Sodium 131, potassium 4.9, chloride 94, carbon dioxide 23, anion gap 19, BUN 77, creatinine 10.01, estimated GFR 5, glucose 175, calcium 6.1, phosphorus 7.9, magnesium 2.2. DIAGNOSTIC DATA: Left upper extremity ultrasound impression; positive for thrombus of the cephalic vein in the left arm. Soft tissue edema in the left forearm. There is no evidence of thrombus in the basilic, ulnar, radial, brachial, axillary, subclavian, or internal jugular veins. IMPRESSION: 1. Status post mechanical fall from standing. 2. Left distal periprosthetic femur fracture, postop day #6 status post open reduction and internal fixation. 3. Adrenal insufficiency, improving. 4. End-stage renal disease, on peritoneal dialysis. 5. Blood loss anemia postop, stable. 6. Peripheral neuropathy. 7. Hypocalcemia. 8. Hyponatremia. 9. Thrombus of the cephalic vein in the left arm. No other thrombus in the other veins. 10. History of obstructive sleep apnea, pacemaker, spinal stenosis, gastric bypass surgery, gastric ulcers, and end-stage renal disease. PLAN: Continue supportive care and pain regimen. Continue to increase physical and occupational therapy. Continue peritoneal dialysis per Nephrology. Continue free water restriction to 1 L with unlimited Gatorade due to his hyponatremia. We will convert patient to oral steroids and discontinue patient's left femoral central line as the patient is not getting anything IV. Continue to monitor blood sugars. Repeat labs in the morning. The patient was examined by Dr. Lee during morning rounds. The patient is pending placement and insurance authorization to inpatient rehab near [place]. Job ID: [id number] MTDD
[2020-02-05] MEDS: Atorvastatin Calcium 40 MG TAB PO SCH (20:49)
[2020-02-05] MEDS: Nortriptyline HCl 25 MG CAP PO SCH (20:49)
[2020-02-05] MEDS: Tamsulosin HCl 0.4 MG CAP PO SCH (20:49)
[2020-02-06] MEDS: Acetaminophen/Codeine 30-300mg Tablet PO SCH ×4 (03:43→21:39)
[2020-02-06] MEDS: predniSONE 5 MG TAB PO SCH ×4 (03:43→21:59)
[2020-02-06 04:19] LABS: Albumin 2.5 g/dL (3.4-4.8); Anion Gap 19 mmol/L (10-20); BUN (Urea Nitrogen) 87 mg/dL (8.4-25.7); BUN/Creatinine Ratio 9.29; Calc. Creatinine Clearance 12 mL/min (70-130); Calcium 6.3 mg/dL (7.8-10.44); Carbon Dioxide 23 mmol/L (23-31); Chloride 93 mmol/L (98-107); Estimated GFR-MDRD 6; Glucose 175 mg/dL (83-110); Phosphorus 6.9 mg/dL (2.3-4.7); Potassium 4.3 mmol/L (3.5-5.1); Sodium 131 mmol/L (136-145)
[2020-02-06] MEDS: Acetaminophen 325 MG TAB PO SCH ×3 (05:16→16:46)
--- NOTE | 2020-02-06 06:34 | PDOC.BPN ---
- Brief Progress Note Date of Service: 02/06/2020 SUBJECTIVE: Patient remain in surgical floor. Patient was seen on round last evening Patient report pain is control. He tolerate with his diet. Denied nausea or vomiting Patient worked with PT/OT. Blood pressure is stable PHYSICAL EXAMINATION: GENERAL: Currently, the patient is lying down in bed comfortable with no acute respiratory distress, generalized. The patient is alert and awake. GCS 15. VITAL sign stable LUNGS: Clear bilaterally. HEART: Regular rate and rhythm. ABDOMEN: Atraumatic. No bruising. No tender to palpation. Nondistended. Bowel sounds active. Patient is on peritoneal dialysis PELVIS: Stable. EXTREMITIES: Neurovascularly intact x4. NEUROLOGIC: No focal neurology deficits. ASSESSMENT: 1. Status post ground level fall 2. L distal femur frature- S?p repaired 3. ESRD with peritoneal dialysis, DM PLAN: continue pain control. Continue PT/ OT . Continue dialysis . Continue supportive care . P
[2020-02-06] MEDS: Polyethylene Glycol 3350 17 GM Packet PO SCH (09:14)
[2020-02-06] MEDS: Magnesium Oxide 400 MG TAB PO SCH ×2 (09:16→21:38)
[2020-02-06] MEDS: Folic Acid/Vit B Comp W-C PO SCH (09:19)
[2020-02-06] MEDS: Sevelamer Carbonate 800 MG TAB PO SCH ×3 (09:20→16:46)
[2020-02-06] MEDS: Calcitriol 0.25 MCG CAP PO SCH (09:21)
[2020-02-06] MEDS: Ferrous Sulfate 325 MG TAB PO SCH ×2 (09:22→16:46)
[2020-02-06] MEDS: Calcium Carbonate 600 MG + Vit D TAB PO SCH (09:22)
[2020-02-06] MEDS: Allopurinol 100 MG TAB PO SCH (09:22)
--- NOTE | 2020-02-06 09:23 | PRG ---
DATE OF SERVICE: 02/06/2020 SERVICE: Nephrology. SUBJECTIVE: A 74-year-old male seen in followup for end-stage renal disease management. No new complaint. Blood pressure has appreciated. Still with edema of left upper limb and left thigh. Denied nausea, vomiting, or fever. OBJECTIVE: VITAL SIGNS: Temperature 97.6, pulse 60, respiratory rate 18, SpO2 of 100 on 2 L nasal cannula, and blood pressure is 128/71. GENERAL: Obese male, in no obvious distress. Afebrile. Anicteric. Acyanotic. HEENT: Normocephalic and atraumatic. Oral mucosa is moist. CARDIOVASCULAR: Regular rhythm and rate with normal heart sounds. RESPIRATORY: Fair air entry bilaterally with no obvious rhonchi or use of accessory muscles. GI: Obese, soft, nontender, and nondistended with normal bowel sounds. PD catheter noted. EXTREMITIES: Left lower extremity covered with dressing and a knee brace is in place as well as a protective shoe. Left upper extremity, moderate edema as well as trace to mild edema of right upper extremity noted. There is no edema of right lower extremity. DIETARY AIDE TEACHER: Conscious, alert, and oriented x3 with appropriate mental status. DIAGNOSTIC DATA: CBC; chemistry showed sodium 131, potassium 4.3, chloride 93, CO2 of 23, BUN 87, creatinine 9.36, glucose 175, calcium 6.3, phosphorus 6.9, magnesium 2.3, albumin 2.5. ASSESSMENT: 1. End-stage renal disease, on peritoneal dialysis. We will continue treatment with peritoneal dialysis daily. 2. Edema of the left upper and lower extremity as well as right upper extremity: Due to extravasation related to hypoalbuminemia. 3. Hypotension: Improved. Blood pressure is still soft, ranging from 100 to 120. This is multifactorial from volume contraction as well as anemia, hemorrhagic anemia, and adrenal insufficiency. 4. Hypoalbuminemia. 5. Hyperphosphatemia. 6. Hypocalcemia. 7. Metabolic acidosis has improved. PLAN: 1. We will add the 2.5 peritoneal dialysate solution to alternate with 1.5 solution to improve the ultrafiltration. 2. We will also continue calcium supplementation as serum calcium is too low. 3. We will continue to hold usual antihypertensives. 4. Free water restriction to continue as hyponatremia persist. 5. Further treatment to follow depending on hospital course. 6. Disposition: The patient can be discharged from Nephrology point of view to continue outpatient peritoneal dialysis once deemed fit for discharge from Trauma Team. Job ID: [id number]
[2020-02-06] MEDS: Gabapentin 100 MG CAP PO SCH ×3 (09:26→21:40)
[2020-02-06] MEDS: Finasteride 5 MG TAB PO SCH (09:26)
[2020-02-06] MEDS: Thiamine 100 MG TAB PO SCH (09:26)
[2020-02-06] MEDS: Ascorbic Acid 500 mg Chewable Tablet PO SCH ×2 (09:27→16:46)
[2020-02-06] MEDS: Heparin 5,000 UNITS/ML VIAL SC SCH ×2 (09:27→21:38)
[2020-02-06] MEDS: Insulin Glargine 6 UNITS in Pre-Filled Syringe 1 EACH SC SCH (09:28)
[2020-02-06] MEDS: Senokot S 8.6-50 MG TAB PO SCH ×2 (09:28→21:39)
[2020-02-06] MEDS: Sodium Chloride 1 GM TAB PO SCH ×2 (10:38→21:38)
[2020-02-06] MEDS: EPOETIN ALFA-EPBX (ESRD) 10,000 UNIT/ML VIAL SC SCH (12:55)
[2020-02-06] MEDS: Insulin Regular 300 UNITS/3 ML VIAL SC PRN ×2 (12:56→21:37)
[2020-02-06] MEDS: Calcium Carbonate 500 MG TAB PO SCH ×2 (14:41→21:40)
[2020-02-06] MEDS: Sodium Bicarbonate Tab 325 MG TAB PO SCH (17:35)
--- NOTE | 2020-02-06 18:57 | PRG ---
DATE OF SERVICE: 02/06/2020 SUBJECTIVE: The patient remains on the surgical floor. He is awake, alert, in no distress. The patient had no overnight events. The patient's blood pressure remained stable. The patient is currently receiving his peritoneal dialysis. The patient reports that his pain in his left ankle is much better today after changing from the knee immobilizer to the walking boot. The patient also reports he slept good last night. The patient's appetite has increased. The patient voices no complaints at this time. OBJECTIVE: VITAL SIGNS: Temperature 97.5, pulse 60, respirations 20, SpO2 of 100% on room air, blood pressure 102/62. GENERAL: Elderly male, awake, alert, in no distress. RESPIRATORY: Good inspiratory and expiratory effort. Respirations are even and nonlabored. EXTREMITIES: Moves all extremities, neurovascularly intact x4. Left lower extremity in a walking boot. NEUROLOGIC: No focal deficits. LABORATORY DATA: WBC 11.1, RBC 2.45, hemoglobin 8.3, hematocrit 24.0, platelets 119. Sodium 131, potassium 4.3, chloride 93, carbon dioxide 23, BUN 87, creatinine 9.36, GFR 6, BUN and creatinine ratio 9.29, glucose 175, calcium 6.3, phosphorus 6.9, magnesium 2.3, albumin 2.5. IMPRESSION: 1. Status post mechanical fall from standing. 2. Left distal periprosthetic femur fracture, postop day #7, status post open reduction and internal fixation. 3. Adrenal insufficiency, improving. 4. End-stage renal disease, on peritoneal dialysis. 5. Blood loss anemia postop, stable. 6. Peripheral neuropathy. 7. Hypocalcemia. 8. Hyponatremia. 9. Left cephalic vein thrombus, likely secondary to midline attempt. 10. History of obstructive sleep apnea, pacemaker, spinal stenosis, gastric bypass surgery, gastric ulcers, and end-stage renal disease. PLAN: Continue supportive care and pain regimen. Continue to increase physical and occupational therapy. Continue peritoneal dialysis per Nephrology. Continue free water restriction for hyponatremia, although the patient could have unlimited Gatorade. Continue oral steroids for adrenal insufficiency. The patient is ready for discharge from a trauma and nephrology standpoint. The patient is pending placement and insurance authorization. Again, the patient is ready for discharge at this time. The plan was discussed with the patient and his , who agree. The patient was examined by Dr. Lee during morning rounds. Job ID: [id number] MTDD
[2020-02-06] MEDS: Tamsulosin HCl 0.4 MG CAP PO SCH (21:38)
[2020-02-06] MEDS: Atorvastatin Calcium 40 MG TAB PO SCH (21:39)
[2020-02-06] MEDS: Nortriptyline HCl 25 MG CAP PO SCH (21:40)
[2020-02-07] MEDS: Acetaminophen 325 MG TAB PO SCH ×5 (00:16→23:43)
--- NOTE | 2020-02-07 02:02 | PRG ---
DATE OF SERVICE: 02/07/2020 SUBJECTIVE: Mr. Laguerre remained in surgical floor. The patient is awake and alert. The patient reports pain is well controlled. He has tolerated with his regular diet. His peritoneal dialysis uneventful last night. Later this afternoon, the patient experienced bleeding from his right groin, femoral central line. I personally change dressing and direct pressure applied, bleeding stopped. Mild blood loss approximately 10 mL. The patient's vital signs stable. OBJECTIVE: GENERAL: Currently, the patient lying in bed comfortable with no acute respiratory distress. VITAL SIGNS: Stable. LUNGS: Clear bilaterally. HEART: Regular rate and rhythm. ABDOMEN: Soft and nondistended. EXTREMITIES: Neurovascularly intact x4. NEUROLOGIC: No focal neurology deficits. ASSESSMENT: 1. Status post mechanical fall. 2. Left femur fracture, status post repair. 3. Adrenal insufficiency, improved. 4. End-stage renal disease on peritoneal dialysis, stable. 5. Acute blood loss anemia, stable. PLAN: Plan will be continue supportive care. Continue pain control. Continue DVT prophylaxis. Continue peritoneal dialysis, placement pending. Job ID: [id number]
[2020-02-07] MEDS: Acetaminophen/Codeine 30-300mg Tablet PO SCH ×4 (03:41→20:54)
[2020-02-07] MEDS: predniSONE 5 MG TAB PO SCH ×4 (03:42→20:55)
[2020-02-07 06:10] LABS: Band 6 % (5-11); Hemoglobin 8.2 g/dL (14.0-18.0); Lymphocytes 7 % (21-51); MDiff Complete? YES; Mean Corpuscular HGB CONC 32.7 g/dL (32.0-36.0); Mean Corpuscular Hemoglobin 32.6 pg (27.0-31.0); Mean Corpuscular Volume 99.6 fL (78.0-98.0); Mean Platelet Volume 8.7 fL (7.4-10.4); Monocytes 3 % (0-10); Myelocyte 4 % (0-0); Neutrophil 80 % (42-75); Platelet Count 138 thou/uL (130-400); RBC Distribution Width 13.6 % (11.5-14.5); White Blood Cell (WBC) Count 9.8 thou/uL (4.8-10.8)
[2020-02-07] MEDS: Insulin Regular 300 UNITS/3 ML VIAL SC PRN ×4 (06:10→20:56)
[2020-02-07] MEDS: Magnesium Oxide 400 MG TAB PO SCH ×2 (08:21→20:54)
[2020-02-07] MEDS: Senokot S 8.6-50 MG TAB PO SCH ×2 (08:21→20:55)
[2020-02-07] MEDS: Ascorbic Acid 500 mg Chewable Tablet PO SCH ×2 (08:21→16:56)
[2020-02-07] MEDS: Ergocalciferol 1.25 MG(50,000 UNITS) CAP PO SCH (08:21)
[2020-02-07] MEDS: Calcium Carbonate 500 MG TAB PO SCH ×3 (08:21→20:54)
[2020-02-07] MEDS: Ferrous Sulfate 325 MG TAB PO SCH ×2 (08:22→16:56)
[2020-02-07] MEDS: Folic Acid/Vit B Comp W-C PO SCH (08:23)
[2020-02-07] MEDS: Finasteride 5 MG TAB PO SCH (08:23)
[2020-02-07] MEDS: Thiamine 100 MG TAB PO SCH (08:24)
[2020-02-07] MEDS: Gabapentin 100 MG CAP PO SCH ×3 (08:24→20:54)
[2020-02-07] MEDS: Sevelamer Carbonate 800 MG TAB PO SCH ×3 (08:24→16:56)
[2020-02-07] MEDS: Allopurinol 100 MG TAB PO SCH (08:24)
[2020-02-07] MEDS: Calcitriol 0.25 MCG CAP PO SCH (08:24)
[2020-02-07] MEDS: Polyethylene Glycol 3350 17 GM Packet PO SCH (08:25)
[2020-02-07] MEDS: Sodium Chloride 1 GM TAB PO SCH ×2 (08:25→20:55)
[2020-02-07] MEDS: Heparin 5,000 UNITS/ML VIAL SC SCH ×4 (08:26→20:56)
[2020-02-07] MEDS: Insulin Glargine 6 UNITS in Pre-Filled Syringe 1 EACH SC SCH (08:26)
--- NOTE | 2020-02-07 15:50 | PRG ---
DATE OF SERVICE: 02/07/2020 SUBJECTIVE: The patient was seen this morning during rounds. He was sitting up in bed with no signs of acute distress. He had just finished working with physical therapy. He has still not gotten out of the bed as the patient becomes orthostatic whenever he sits up. He is, however, not volume depleted at this time. He otherwise reports that his pain is well controlled and he is tolerating his diet. I did discuss with him the importance of consuming protein and liquids. OBJECTIVE: VITAL SIGNS: Temperature 97.5, pulse 60, respirations 12, oxygen saturation 96% on room air, blood pressure 115/69. GENERAL: Well-appearing elderly male, sitting up in bed with no signs of acute distress. PULMONARY: Equal chest rise and fall. No signs of acute respiratory distress. CARDIAC: Regular rate and rhythm. GASTROINTESTINAL: Abdomen is soft, nontender, and nondistended. EXTREMITIES: 2+ pulses in all extremities. Gross motor and sensation are intact. He does have some third spacing in his bilateral upper and lower extremities with a little bit of oozing of serosanguineous output from wounds on his left arm. NEUROLOGIC: GCS is 15. LABORATORY FINDINGS: White count 9.8, hemoglobin 8.2, hematocrit 25.0, platelets 138. DIAGNOSTIC FINDINGS: There are no new diagnostic findings to report. ASSESSMENT: 1. Status post mechanical fall from standing. 2. Left distal periprosthetic femur fracture, status post repair. 3. Left ankle sprain. 4. Acute adrenal insufficiency, resolved. 5. Non-ST elevation myocardial infarction due to demand ischemia, resolved. 6. Hyponatremia, persistent. 7. Cephalic vein thrombosis of the left upper extremity. 8. Orthostatic hypotension, not due to volume depletion. 9. History of end-stage renal disease, on peritoneal dialysis; obstructive sleep apnea; pacemaker; spinal stenosis; diabetes; gastric ulcer; gastric bypass. PLAN: Continue current diet and pain regimen. Continue 1 L free water restriction. The patient can have as much Gatorade and juice as he likes. Continue previously prescribed home medications. No intervention needed for this superficial cephalic vein thrombosis. The patient is to get up in the neuro chair today to start working on orthostatic hypotension. I did discuss this with the nurse. He is pending placement at a skilled facility. He is ready for discharge at this time. We are pending an update from Case Management as far as insurance approval. This patient was seen and evaluated by Dr. Lebron and myself this morning during rounds. Job ID: [id number]
--- NOTE | 2020-02-07 19:59 | PRG ---
DATE OF SERVICE: 02/07/2020 SERVICE: Nephrology. SUBJECTIVE: A 74-year-old male seen in followup for end-stage renal disease management. The patient reportedly had orthostatic hypotension associated with dizziness earlier today. No new problem. Denied nausea, vomiting, or change in bowel habit. OBJECTIVE: VITAL SIGNS: Temperature 95.2, pulse 60, respiratory rate 14, SpO2 95% on room air, blood pressure 115/69. Orthostatic vitals however showed supine 107/62, sitting 93/55 and standing 79/57. GENERAL: Obese male, in no obvious distress. Afebrile. Anicteric. Acyanotic. HEENT: Normocephalic, atraumatic. Oral mucosa is moist. CARDIOVASCULAR: Regular rhythm and rate with normal heart sounds 1 and 2. RESPIRATORY: Fair air entry bilaterally with no obvious crackle or rhonchi or use of accessory muscles. GI: Obese, soft, nontender, nondistended with normal bowel sounds. PD catheter noted. EXTREMITIES: Moderate edema of left upper extremity and left thigh noted. Trace edema of right upper extremity noted. GROCERY ASSOCIATE: Conscious and alert, oriented x3 with appropriate mental status. DIAGNOSTIC DATA: CBC today showed WBC count of 9.8, hemoglobin of 8.2, MCV of 99.6, platelet of 138. No chemistry was obtained today. ASSESSMENT: 1. End-stage renal disease, on peritoneal dialysis. 2. Orthostatic hypotension. 3. Hypotension: Due to adrenal insufficiency. 4. Hyperphosphatemia. 5. Hypocalcemia. 6. Hungry bone syndrome due to bone remodeling and commencement of vitamin D supplementation. 7. Presumed osteoporosis. 8. Acute blood loss anemia. 9. Anemia of chronic kidney disease. 10. History of hypertension, but now with low blood pressures. 11. Diabetes mellitus with hyperglycemia. PLAN: 1. We will revert to 1.5 PD dialysis due to low blood pressures. 2. We will also start midodrine to improve blood pressures. 3. We will continue calcium supplementation as well as a phosphate binder and vitamin D supplementation. 4. We will recheck renal function test in the morning. 5. Further treatment to follow depending on hospital course. Job ID: [id number]
[2020-02-07] MEDS: Atorvastatin Calcium 40 MG TAB PO SCH (20:55)
[2020-02-07] MEDS: Midodrine HCl 5 MG TAB PO SCH (20:55)
[2020-02-07] MEDS: Tamsulosin HCl 0.4 MG CAP PO SCH (20:55)
--- NOTE | 2020-02-07 21:22 | PDOC.BPN ---
- Brief Progress Note DATE OF SERVICE: 02/07/2020 SUBJECTIVE: Mr. Laguerre remained in surgical floor. The patient is awake and alert. The patient reports pain is well controlled. He has tolerated with his regular diet. His peritoneal dialysis uneventful last night. The patient's vital signs stable. OBJECTIVE: GENERAL: Currently, the patient lying in bed comfortable with no acute respiratory distress. VITAL SIGNS: Stable. LUNGS: Clear bilaterally. HEART: Regular rate and rhythm. ABDOMEN: Soft and nondistended. EXTREMITIES: Neurovascularly intact x4. NEUROLOGIC: No focal neurology deficits. ASSESSMENT: 1. Status post mechanical fall. 2. Left femur fracture, status post repair. 3. Adrenal insufficiency, improved. 4. End-stage renal disease on peritoneal dialysis, stable. 5. Acute blood loss anemia, stable. PLAN: Plan will be continue supportive care. Continue pain control. Continue DVT prophylaxis. Continue peritoneal dialysis, placement pending.
[2020-02-08] MEDS: predniSONE 5 MG TAB PO SCH ×4 (03:44→20:27)
[2020-02-08] MEDS: Acetaminophen/Codeine 30-300mg Tablet PO SCH ×4 (03:44→20:23)
[2020-02-08] MEDS: Acetaminophen 325 MG TAB PO SCH ×4 (05:14→23:44)
[2020-02-08 05:46] LABS: Albumin 2.6 g/dL (3.4-4.8); Anion Gap 21 mmol/L (10-20); BUN (Urea Nitrogen) 83 mg/dL (8.4-25.7); BUN/Creatinine Ratio 9.14; Calc. Creatinine Clearance 12 mL/min (70-130); Calcium 6.5 mg/dL (7.8-10.44); Carbon Dioxide 22 mmol/L (23-31); Chloride 95 mmol/L (98-107); Estimated GFR-MDRD 6; Glucose 109 mg/dL (83-110); Phosphorus 5.7 mg/dL (2.3-4.7); Potassium 4.2 mmol/L (3.5-5.1); Sodium 134 mmol/L (136-145)
[2020-02-08 05:47] LABS: Band 4 % (5-11); Eosinophils 1 % (0-10); Hemoglobin 8.4 g/dL (14.0-18.0); Hypochromia SLIGHT = 6-15 cells (100X) (0-5/hpf); Lymphocytes 7 % (21-51); MDiff Complete? YES; Mean Corpuscular HGB CONC 33.9 g/dL (32.0-36.0); Mean Corpuscular Hemoglobin 33.8 pg (27.0-31.0); Mean Corpuscular Volume 99.5 fL (78.0-98.0); Mean Platelet Volume 8.3 fL (7.4-10.4); Metamyelocyte 1 % (0-0); Monocytes 3 % (0-10); Neutrophil 84 % (42-75); Platelet Count 157 thou/uL (130-400); Platelet Morphology Comment Appears Adequate; RBC Distribution Width 13.8 % (11.5-14.5); Red Blood Cell (RBC) Count 2.48 mill/uL (4.70-6.10); White Blood Cell (WBC) Count 12.8 thou/uL (4.8-10.8)
[2020-02-08] MEDS: Calcitriol 0.25 MCG CAP PO SCH (07:59)
[2020-02-08] MEDS: Magnesium Oxide 400 MG TAB PO SCH ×2 (07:59→20:22)
[2020-02-08] MEDS: Senokot S 8.6-50 MG TAB PO SCH ×2 (07:59→20:25)
[2020-02-08] MEDS: Thiamine 100 MG TAB PO SCH (08:00)
[2020-02-08] MEDS: Finasteride 5 MG TAB PO SCH (08:00)
[2020-02-08] MEDS: Ferrous Sulfate 325 MG TAB PO SCH ×2 (08:00→16:21)
[2020-02-08] MEDS: Ascorbic Acid 500 mg Chewable Tablet PO SCH ×2 (08:00→16:21)
[2020-02-08] MEDS: Gabapentin 100 MG CAP PO SCH ×3 (08:00→20:24)
[2020-02-08] MEDS: Sevelamer Carbonate 800 MG TAB PO SCH ×3 (08:00→16:21)
[2020-02-08] MEDS: Folic Acid/Vit B Comp W-C PO SCH (08:00)
[2020-02-08] MEDS: Allopurinol 100 MG TAB PO SCH (08:00)
[2020-02-08] MEDS: Calcium Carbonate 500 MG TAB PO SCH ×3 (08:00→20:22)
[2020-02-08] MEDS: Polyethylene Glycol 3350 17 GM Packet PO SCH (08:01)
[2020-02-08] MEDS: Midodrine HCl 5 MG TAB PO SCH ×3 (08:01→20:22)
[2020-02-08] MEDS: Heparin 5,000 UNITS/ML VIAL SC SCH ×3 (08:02→20:24)
[2020-02-08] MEDS: Insulin Glargine 6 UNITS in Pre-Filled Syringe 1 EACH SC SCH (08:52)
[2020-02-08] MEDS: Sodium Chloride 1 GM TAB PO SCH ×2 (08:52→20:22)
[2020-02-08] MEDS: EPOETIN ALFA-EPBX (ESRD) 10,000 UNIT/ML VIAL SC SCH (09:22)
[2020-02-08] MEDS: Insulin Regular 300 UNITS/3 ML VIAL SC PRN ×2 (11:23→20:24)
--- NOTE | 2020-02-08 15:07 | PRG ---
DATE OF SERVICE: 02/08/2020 SUBJECTIVE: The patient was seen this evening during rounds. He was sitting in the neuro chair with no signs of acute distress. He reported pain was well controlled, and he is feeling well today. He is pending placement at a halfway facility. We are pending insurance authorization. OBJECTIVE: VITAL SIGNS: Temperature 97.6, pulse 67, respirations 20, oxygen saturation 99% on room air, and blood pressure 103/62. GENERAL: Well-appearing elderly male, lying in neuro chair with no signs of acute distress. PULMONARY: Equal chest rise and fall. Clear breath sounds bilaterally. No signs of acute respiratory distress. CARDIAC: Regular rate and rhythm. GI: Abdomen is soft, nontender, nondistended. EXTREMITIES: 2+ pulses in all extremities. Gross motor and sensation are intact. No significant swelling noted. NEUROLOGIC: GCS is 15. LABORATORY FINDINGS: White count 12.8, hemoglobin 8.4, hematocrit 24.6, and platelets 157. Sodium 134, potassium 4.2, chloride 95, bicarb 22, BUN 83, creatinine 9.08, glucose 109, phosphorus 5.7, calcium 6.5, and albumin 2.6. ASSESSMENT: 1. Status post mechanical fall from standing. 2. Left distal periprosthetic femur fracture. 3. Left ankle sprain. 4. Acute adrenal insufficiency, resolving. 5. Huy-SZ-[id number] elevation myocardial infarction due to demand ischemia, resolved. 6. Thrombosis of the cephalic vein in left upper extremity. 7. History of end-stage renal disease, on peritoneal dialysis; obstructive sleep apnea; pacemaker; spinal stenosis; diabetes; gastric ulcers; and gastric bypass surgery. PLAN: Continue current diet and pain regimen. Continue 1 L free water restriction. Continue midodrine. Continue PT, OT. The patient is pending placement at a halfway facility. I completed a [id number] today with his insurance who have approved skilled facility. We are trying to find a new location that performs peritoneal dialysis at this time. The patient was discussed with Dr. Lee before this dictation. He is ready for discharge at this time. Job ID: [id number]
--- NOTE | 2020-02-08 15:16 | PRG ---
DATE OF SERVICE: 02/08/2020 SERVICE: Nephrology. SUBJECTIVE: A 74-year-old male seen in followup for end-stage renal disease management as well as orthostatic hypotension. The patient had another episode of orthostatic dizziness and hypotension earlier today. Otherwise feels good. Denied nausea, vomiting, abdominal pain, or change in bowel habit. Tolerated peritoneal dialysis well last night. OBJECTIVE: VITAL SIGNS: Temperature 97.6, pulse 67, respiratory rate 20, SpO2 of 99, and blood pressure 106/66. Earlier orthostatic vitals showed lying down 143/65 with a 95/56 on sitting and 88/42 on standing. GENERAL: Obese male, in no distress. NECK: Supple with no JVD. HEENT: Normocephalic, atraumatic. Oral mucosa is moist. CARDIOVASCULAR: Regular rhythm and rate. Normal heart sounds 1 and 2. RESPIRATORY: Fair air entry bilaterally with no obvious crackle or rhonchi or use of accessory muscles. GI: Obese, soft, nontender, nondistended with normal bowel sounds. PD catheter noted. EXTREMITIES: Mild left upper and lower extremity edema noted. MANAGING PARTNER: Conscious, alert, oriented x3 with appropriate mental status. Cranial nerves 2 through 12 are grossly intact. DIAGNOSTIC DATA: CBC showed WBC count of 12.8, hemoglobin of 8.4, and platelets of 157. Chemistry showed sodium 134, potassium 4.2, chloride 95, CO2 of 22, BUN 83, creatinine 9.08, glucose 109, calcium 6.5, phosphorus 5.7, and albumin 2.6. ASSESSMENT: 1. Orthostatic hypotension: Most likely related to diabetic neuropathy. 2. End-stage renal disease, on peritoneal dialysis. 3. Hypocalcemia. 4. Vitamin D deficiency. 5. Secondary hyperparathyroidism. 6. Anemia in chronic kidney disease. 7. Hyponatremia: Improving. 8. History of hypertension: Blood pressure is currently on the soft side. PLAN: 1. We will continue midodrine and monitor vitals. 2. We will continue peritoneal dialysis. 3. Hyperphosphatemia has improved. We will continue current dose of phosphate binder as well as vitamin D and calcium supplementation. 4. Further treatment to follow depending on hospital course. Job ID: [id number]
[2020-02-08] MEDS: Tamsulosin HCl 0.4 MG CAP PO SCH (20:22)
[2020-02-08] MEDS: Atorvastatin Calcium 40 MG TAB PO SCH (20:22)
[2020-02-09] MEDS: predniSONE 5 MG TAB PO SCH ×4 (03:32→23:04)
[2020-02-09] MEDS: Acetaminophen/Codeine 30-300mg Tablet PO SCH ×4 (03:32→22:35)
--- NOTE | 2020-02-09 04:18 | PRG ---
DATE OF SERVICE: 02/09/2020 SUBJECTIVE: Mr. Laguerre remains in surgical floor. The patient was seen on round this evening. The patient reports he has been having diarrhea today, most likely the cause of diarrhea is from his drinking new products, and the patient has a history of lactulose intolerant. The patient able to drink Gatorade during the day. He has been sitting on the chair and he raised no concern. Pain is well controlled. OBJECTIVE: GENERAL: Currently, the patient lying in bed comfortable with no acute respiratory distress. VITAL SIGNS: Stable. LUNGS: Clear bilaterally. HEART: Regular rate and rhythm. ABDOMEN: Soft and nondistended. EXTREMITIES: Neurovascularly intact x4. NEUROLOGIC: No focal neurology deficits. ASSESSMENT: 1. Status post mechanical fall. 2. Left distal femur fracture, status post repair. 3. Left ankle sprain, conservative treatment. 4. Acute adrenal insufficiency, resolved. 5. History of end-stage renal disease, on peritoneal dialysis; obstructive sleep apnea; pacemaker; diabetes; latest bypass surgery. PLAN: Encourage replace fluid with Gatorade. Continue physical therapy and occupational therapy. Continue DVT prophylaxis. Anticipate placement in long-term facility. Job ID: [id number]
[2020-02-09] MEDS: Acetaminophen 325 MG TAB PO SCH ×3 (06:35→17:09)
[2020-02-09] MEDS: Magnesium Oxide 400 MG TAB PO SCH ×2 (09:43→22:38)
[2020-02-09] MEDS: Sevelamer Carbonate 800 MG TAB PO SCH ×3 (09:43→16:47)
[2020-02-09] MEDS: Calcitriol 0.25 MCG CAP PO SCH (09:44)
[2020-02-09] MEDS: Calcium Carbonate 500 MG TAB PO SCH ×3 (09:44→22:37)
[2020-02-09] MEDS: Allopurinol 100 MG TAB PO SCH (09:44)
[2020-02-09] MEDS: Midodrine HCl 5 MG TAB PO SCH ×4 (09:45→22:48)
[2020-02-09] MEDS: Folic Acid/Vit B Comp W-C PO SCH (09:45)
[2020-02-09] MEDS: Finasteride 5 MG TAB PO SCH (09:45)
[2020-02-09] MEDS ORDERED: Midodrine HCl 5 MG TAB PO SCH (09:45)
[2020-02-09] MEDS: Gabapentin 100 MG CAP PO SCH ×3 (09:46→22:37)
[2020-02-09] MEDS: Thiamine 100 MG TAB PO SCH (09:46)
[2020-02-09] MEDS: Polyethylene Glycol 3350 17 GM Packet PO SCH (09:47)
[2020-02-09] MEDS: Senokot S 8.6-50 MG TAB PO SCH ×2 (09:47→22:39)
[2020-02-09] MEDS: Ferrous Sulfate 325 MG TAB PO SCH ×2 (09:48→16:50)
[2020-02-09] MEDS: Ascorbic Acid 500 mg Chewable Tablet PO SCH ×2 (09:48→16:55)
[2020-02-09] MEDS: Insulin Glargine 6 UNITS in Pre-Filled Syringe 1 EACH SC SCH (09:49)
[2020-02-09] MEDS: Heparin 5,000 UNITS/ML VIAL SC SCH ×3 (09:49→22:37)
[2020-02-09] MEDS: Sodium Chloride 1 GM TAB PO SCH ×2 (10:21→22:48)
--- NOTE | 2020-02-09 12:33 | PRG ---
DATE OF SERVICE: 02/09/2020 SUBJECTIVE: The patient was seen this morning during rounds. He was lying in bed with no signs of acute distress. The patient reports he has had several bouts of diarrhea since yesterday evening. He believes it is due to drinking the Ensure drinks. He is lactose intolerant. He denies any nausea, vomiting, or abdominal cramping. His blood pressures have improved since starting midodrine. OBJECTIVE: VITAL SIGNS: Temperature 97.6, pulse 61, respirations 18, oxygen saturation 100% on room air, blood pressure 101/62. GENERAL: Well-appearing elderly male, lying in bed with no signs of acute distress. PULMONARY: Equal chest rise and fall. Clear breath sounds bilaterally. No signs of acute respiratory distress. CARDIAC: Regular rate and rhythm. GI: Abdomen is soft, nontender, and nondistended. EXTREMITIES: 2+ pulses in all extremities. Gross motor and sensation are intact. No significant swelling noted. NEUROLOGIC: GCS is 15. LABORATORY FINDINGS: There are no new laboratory findings to discuss. DIAGNOSTIC FINDINGS: There are no new diagnostic findings to discuss. ASSESSMENT: 1. Status post mechanical fall from standing. 2. Left distal periprosthetic femur fracture, status post repair. 3. Left ankle sprain. 4. Acute adrenal insufficiency, stable. 5. Loe-PU-jquoxbbvs myocardial infarction due to demand ischemia, resolved. 6. Thrombus of the cephalic vein on the left upper extremity, stable. 7. Acute diarrhea. 8. History of end-stage renal disease, on peritoneal dialysis; obstructive sleep apnea; pacemaker; spinal stenosis; diabetes; gastric ulcer; and gastric bypass. PLAN: Continue current diabetic and renal diet. Also, restrict lactose. Continue free water restriction. The patient can have as much Gatorade as he likes. Send a stool sample for Clostridium difficile. Continue home medications as previously prescribed. Continue physical and occupational therapy. Continue midodrine. Now that blood pressure has improved, maybe the patient can stand up and sit in a chair. He does not really like the neuro chair very much, but he has been very cooperative in trying it. The patient is ready for discharge at this time. I did review with the patient's insurance provider, who has previously denied inpatient rehab. They are approving [facility]; however, the skilled facilities in the area near his home do not provide peritoneal dialysis. Case Management is appealing for possible placement at LTAC facility. We will continue to work with Case Management and follow up with the insurance provider as the patient has been here for several days now and has been ready for discharge. Job ID: [id number]
[2020-02-09] MEDS: Insulin Regular 300 UNITS/3 ML VIAL SC PRN (12:55)
--- NOTE | 2020-02-09 15:59 | PRG ---
DATE OF SERVICE: SERVICE: Nephrology. SUBJECTIVE: This 74-year-old male is seen in followup for end-stage renal disease management as well as hypotension. The patient complained of . He had multiple episodes of loose stool yesterday and also continued to have frequent stooling today. No nausea or vomiting or fever. He tolerated peritoneal dialysis well last night. OBJECTIVE: VITAL SIGNS: Temperature 97.6, pulse 61, respiratory rate 18, SpO2 of 100% on room air, and blood pressure 101/62. GENERAL: Obese male, in no distress. Afebrile. Anicteric. Acyanotic. HEENT: Normocephalic and atraumatic. CARDIOVASCULAR: Regular rhythm and rate with normal heart sounds 1 and 2. RESPIRATORY: Fair air entry bilaterally with no respiratory distress. GI: Obese, soft, nondistended, and nontender with normal bowel sounds. PD catheter noted. UROGENITAL: Grossly normal looking with no edema or erythema. EXTREMITIES: Trace to mild edema of left upper and lower extremity noted. 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 Cranial nerves 2 through 12 are grossly intact. ASSESSMENT: 1. Hypotension: Blood pressure is still soft despite holding of several antihypertensives and commencement of low-dose midodrine. Etiology is unclear, but adrenal insufficiency as well as diabetic neuropathy are thought to be responsible. Acute blood loss anemia leading to volume contraction may be contributory, but that has been several days now and the patient has been resuscitated adequately. 2. End-stage renal disease, on peritoneal dialysis. 3. Edema of the left upper and lower extremities. 4. Secondary hyperparathyroidism. 5. Hypocalcemia. 6. Anemia in chronic kidney disease. 7. Acute blood loss anemia. 8. Orthostatic hypotension with dizziness. PLAN: 1. We will increase midodrine from 5 mg t.i.d. to 10 mg t.i.d. 2. Agree with evaluation of frequent loose stool to rule out C diff. 3. [place] oral intake advised. 4. We will monitor vitals. 5. Plan will be to increase UF to improve volume status if blood pressure appreciates and remains stable. 6. Further treatment to follow depending on hospital course. 7. We will repeat renal function panel in the morning. Job ID: [id number]
[2020-02-09] MEDS: Atorvastatin Calcium 40 MG TAB PO SCH (22:37)
[2020-02-09] MEDS: Tamsulosin HCl 0.4 MG CAP PO SCH (22:38)
[2020-02-10] MEDS: Acetaminophen 325 MG TAB PO SCH ×4 (01:25→17:50)
--- NOTE | 2020-02-10 01:50 | PRG ---
DATE OF SERVICE: 02/09/2020 SUBJECTIVE: Mr. Laguerre remained in surgical floor. Patient was seen on round this evening. Patient reports he has been doing good. His diarrhea improved. He developed no fever or shortness of breath. OBJECTIVE: GENERAL: Currently, patient is lying in bed with no acute respiratory distress. VITAL SIGNS: Stable. LUNGS: Clear bilaterally. HEART: Regular rate and rhythm. ABDOMEN: Soft and nondistended. EXTREMITIES: Neurovascularly intact x4. NEUROLOGY: No focal neurology deficits. ASSESSMENT: 1. Status post mechanical fall. 2. Left distal femur fracture, status post repair. 3. Left ankle sprain, conservative treatment. 4. Acute adrenal insufficiency, stable. 5. Acute diarrhea, improved due to lactose intolerance. 6. History of end-stage renal disease, on peritoneal dialysis. 7. Obstructive sleep apnea. 8. Pacemaker. 9. Spinal stenosis. 10. Diabetes. 11. Gastric ulcer. 12. Gastric bypass that is stable. PLAN: Continue supportive care. Continue pain control. Continue working with Physical Therapy, Occupational Therapy. Continue peritoneal dialysis daily. Placement is pending. Job ID: [id number]
[2020-02-10] MEDS: predniSONE 5 MG TAB PO SCH ×4 (03:35→20:54)
[2020-02-10] MEDS: Acetaminophen/Codeine 30-300mg Tablet PO SCH ×4 (03:35→20:54)
[2020-02-10 05:32] LABS: Albumin 2.4 g/dL (3.4-4.8); Anion Gap 23 mmol/L (10-20); BUN (Urea Nitrogen) 86 mg/dL (8.4-25.7); BUN/Creatinine Ratio 9.57; Calc. Creatinine Clearance 12 mL/min (70-130); Calcium 6.8 mg/dL (7.8-10.44); Carbon Dioxide 19 mmol/L (23-31); Chloride 95 mmol/L (98-107); Estimated GFR-MDRD 6; Glucose 144 mg/dL (83-110); Magnesium 2.5 mg/dL (1.6-2.6); Phosphorus 6.8 mg/dL (2.3-4.7); Potassium 4.2 mmol/L (3.5-5.1); Sodium 133 mmol/L (136-145)
[2020-02-10 05:48] LABS: Band 1 % (5-11); Eosinophils 1 % (0-10); Hemoglobin 9.3 g/dL (14.0-18.0); Lymphocytes 13 % (21-51); MDiff Complete? YES; Macrocytosis SLIGHT = 6-15 cells (100X) (0-5/hpf); Mean Corpuscular HGB CONC 31.8 g/dL (32.0-36.0); Mean Corpuscular Hemoglobin 32.1 pg (27.0-31.0); Mean Platelet Volume 8.2 fL (7.4-10.4); Metamyelocyte 1 % (0-0); Monocytes 3 % (0-10); Neutrophil 81 % (42-75); Platelet Count 157 thou/uL (130-400); Platelet Morphology Comment Appears Adequate; RBC Distribution Width 14.5 % (11.5-14.5); Red Blood Cell (RBC) Count 2.89 mill/uL (4.70-6.10); White Blood Cell (WBC) Count 17.2 thou/uL (4.8-10.8)
[2020-02-10] MEDS: Sodium Chloride 1 GM TAB PO SCH ×2 (09:02→22:12)
[2020-02-10] MEDS: Midodrine HCl 5 MG TAB PO SCH ×3 (09:02→20:54)
[2020-02-10] MEDS: Sevelamer Carbonate 800 MG TAB PO SCH ×3 (09:03→17:51)
[2020-02-10] MEDS: Calcitriol 0.25 MCG CAP PO SCH (09:03)
[2020-02-10] MEDS: Allopurinol 100 MG TAB PO SCH (09:03)
[2020-02-10] MEDS: Thiamine 100 MG TAB PO SCH (09:05)
[2020-02-10] MEDS: Magnesium Oxide 400 MG TAB PO SCH ×2 (09:05→20:54)
[2020-02-10] MEDS: Gabapentin 100 MG CAP PO SCH ×3 (09:05→20:55)
[2020-02-10] MEDS: Ascorbic Acid 500 mg Chewable Tablet PO SCH ×2 (09:05→17:50)
[2020-02-10] MEDS: Calcium Carbonate 500 MG TAB PO SCH ×3 (09:05→20:53)
[2020-02-10] MEDS: Folic Acid/Vit B Comp W-C PO SCH (09:05)
[2020-02-10] MEDS: Finasteride 5 MG TAB PO SCH (09:06)
[2020-02-10] MEDS: Ferrous Sulfate 325 MG TAB PO SCH ×2 (09:06→17:51)
[2020-02-10] MEDS: Heparin 5,000 UNITS/ML VIAL SC SCH ×3 (09:06→20:53)
[2020-02-10] MEDS: Senokot S 8.6-50 MG TAB PO SCH ×2 (09:07→22:34)
[2020-02-10] MEDS: Polyethylene Glycol 3350 17 GM Packet PO SCH (09:07)
[2020-02-10] MEDS: Insulin Glargine 6 UNITS in Pre-Filled Syringe 1 EACH SC SCH (09:08)
--- NOTE | 2020-02-10 11:17 | PRG ---
DATE OF SERVICE: 02/10/2020 SERVICE: Nephrology. SUBJECTIVE: A male, seen in followup for hypertension and end-stage renal disease management. The patient was admitted due to fall, during which he sustained fracture of left thigh. Status post open reduction and internal fixation. The patient is on peritoneal dialysis and developed generalized edema as well as hypotension. Feeling better. Tenesmus and frequent stooling of yesterday have subsided. Denied nausea or vomiting or abdominal pain. Still having orthostatic dizziness. OBJECTIVE: VITAL SIGNS: Temperature 97.8, pulse 67, respiratory rate 16, SpO2 of 100% on room air, blood pressure is 110/66. GENERAL: Obese male, in no distress. Afebrile, acyanotic. HEENT: Normocephalic, atraumatic. Oral mucosa is moist. CARDIOVASCULAR: Regular rhythm and rate. Normal heart sounds 1 and 2. RESPIRATORY: Fair air entry bilaterally with no crackle or rhonchi or use of accessory muscles. GI: Obese, soft, nontender, nondistended with normal bowel sounds. PD catheter noted. EXTREMITIES: Left lower extremity dressing and knee brace noted. Trace edema of left upper extremity noted. Other extremities are grossly normal without edema. CHECKERER HAND: Conscious, alert, oriented x3 with appropriate mental status. Cranial nerves 2 through 12 are grossly intact. DIAGNOSTIC DATA: CBC showed WBC count of 17, hemoglobin of 9.3, platelet of 167. Chemistry showed sodium 133, potassium 4.2, chloride 95, CO2 of 19, BUN 86, creatinine 8.99, glucose 144, calcium 6.8, phosphorus 6.8, magnesium 2.5, albumin 2.4. ASSESSMENT: 1. Hypotension, slight orthostatic hypotension with dizziness. We will continue midodrine at increased risk of 10 mg t.i.d. We will continue also to hold antihypertensives except very low dose of metoprolol. 2. End-stage renal disease, on peritoneal dialysis. We will continue to provide peritoneal dialysis. We will continue current prescription. 3. Secondary hyperparathyroidism. The patient has not been on Sensipar. We will start this when serum calcium improves further. 4. Hypocalcemia. Supplementation with calcium carbonate. 5. Vitamin D deficiency. Continue supplementation. 6. Anemia in kidney disease: Continue iron and erythrocyte-stimulating agent. 7. Volume status: The patient is euvolemic. Observe the edema on the left extremities due to IV access as well as trauma to the left leg. 8. Hyperphosphatemia: Improved. Continue phosphate binder. Further treatment to follow depending on hospital course. Job ID: [id number]
[2020-02-10] MEDS ORDERED: Saccharomyces boulardii 250 MG CAP PO SCH (12:30)
[2020-02-10] MEDS: Insulin Regular 300 UNITS/3 ML VIAL SC PRN (13:34)
--- NOTE | 2020-02-10 14:35 | PRG ---
DATE OF SERVICE: 02/10/2020 SUBJECTIVE: The patient was seen this morning during rounds. He was sitting up in bed with no signs of acute distress. He reported he was able to stand at the side of the bed today twice, still having diarrhea. White count slightly elevated, but with no bands. OBJECTIVE: VITAL SIGNS: Temperature 97.7, pulse 62, respirations 16, oxygen saturation 100% on room air, blood pressure 119/65. GENERAL: Well-appearing elderly male, lying in bed with no signs of acute distress. PULMONARY: Equal chest rise and fall. Clear breath sounds bilaterally. No signs of acute respiratory distress. CARDIAC: Regular rate and rhythm. GI: Abdomen is soft, nontender, nondistended. EXTREMITIES: 2+ pulses in all extremities. Gross motor and sensation are intact. Some mild swelling is noted. NEURO: GCS is 15. LABORATORY FINDINGS: White count 17.2, hemoglobin 9.3, hematocrit 29.2, platelets 157. Sodium 133, potassium 4.2, chloride 95, bicarb 19, BUN 23, creatinine 8.99, glucose 144, magnesium 2.5. DIAGNOSTIC FINDINGS: There are no new diagnostic findings to report. LABORATORY FINDINGS: C. diff is negative. ASSESSMENT: 1. Status post mechanical fall from standing. 2. Left distal periprosthetic femur fracture. 3. Left ankle soft tissue injury. 4. Acute adrenal insufficiency, resolved. 5. Non-ST segment elevation myocardial infarction due to demand ischemia, resolved. 6. Thrombus through the cephalic vein of the left arm, stable. 7. Diarrhea, persistent. 8. Leukocytosis, etiology unclear. PLAN: Continue current diet. Continue physical therapy. Start Imodium. Add Florastor. Bladder scan the patient, if there is greater than 200 mL of urine. Collect UA and send for culture as well. Continue physical and occupational therapy. The patient is ready for discharge at this time. We are pending authorization from his insurance for placement. Placement has been complicated due to the patient's peritoneal dialysis. This patient was discussed with Dr. Lee before this dictation. Job ID: [id number]
[2020-02-10] MEDS: Loperamide HCl 2 MG CAP PO PRN (20:53)
[2020-02-10] MEDS: Tamsulosin HCl 0.4 MG CAP PO SCH (20:53)
[2020-02-10] MEDS: Atorvastatin Calcium 40 MG TAB PO SCH (20:54)
[2020-02-10] MEDS: Ondansetron ODT 4 MG TAB PO PRN (21:18)
--- NOTE | 2020-02-10 23:31 | PDOC.BPN ---
- Brief Progress Note DATE OF SERVICE: 02/10/2020 SUBJECTIVE: Mr. Laguerre remained in surgical floor. Patient was seen on round this evening. Patient reports he has been doing good. Patient had 7 times diarrhea today, the last bowel was formed. He developed no fever or shortness of breath. OBJECTIVE: GENERAL: Currently, patient is lying in bed with no acute respiratory distress. VITAL SIGNS: Stable. LUNGS: Clear bilaterally. HEART: Regular rate and rhythm. ABDOMEN: Soft and nondistended. EXTREMITIES: Neurovascularly intact x4. NEUROLOGY: No focal neurology deficits. ASSESSMENT: 1. Status post mechanical fall. 2. Left distal femur fracture, status post repair. 3. Left ankle sprain, conservative treatment. 4. Acute adrenal insufficiency, stable. 5. Acute diarrhea, improved due to lactose intolerance. 6. History of end-stage renal disease, on peritoneal dialysis. 7. Obstructive sleep apnea. 8. Pacemaker. 9. Spinal stenosis. 10. Diabetes. 11. Gastric ulcer. 12. Gastric bypass that is stable. PLAN: Continue supportive care. Continue pain control. Continue working with Physical Therapy, Occupational Therapy. Hold laxative, patient had immodium started. Continue peritoneal dialysis daily. Placement is pending.
[2020-02-11] MEDS: Acetaminophen/Codeine 30-300mg Tablet PO SCH ×4 (01:18→20:42)
[2020-02-11] MEDS: Acetaminophen 325 MG TAB PO SCH ×5 (01:18→23:34)
[2020-02-11] MEDS: predniSONE 5 MG TAB PO SCH ×3 (02:44→17:41)
[2020-02-11 05:50] LABS: Band 6 % (5-11); Eosinophils 1 % (0-10); Hemoglobin 8.7 g/dL (14.0-18.0); Lymphocytes 5 % (21-51); MDiff Complete? YES; Mean Corpuscular HGB CONC 32.5 g/dL (32.0-36.0); Mean Corpuscular Hemoglobin 32.4 pg (27.0-31.0); Mean Corpuscular Volume 99.8 fL (78.0-98.0); Mean Platelet Volume 8.2 fL (7.4-10.4); Monocytes 5 % (0-10); Neutrophil 83 % (42-75); Nucleated RBC 1 % (0); Platelet Count 155 thou/uL (130-400); Platelet Morphology Comment Appears Adequate; RBC Distribution Width 14.2 % (11.5-14.5); White Blood Cell (WBC) Count 19.4 thou/uL (4.8-10.8)
[2020-02-11] MEDS: Heparin 5,000 UNITS/ML VIAL SC SCH ×3 (08:36→20:42)
[2020-02-11] MEDS: Saccharomyces boulardii 250 MG CAP PO SCH (08:37)
[2020-02-11] MEDS: Folic Acid/Vit B Comp W-C PO SCH (08:37)
[2020-02-11] MEDS: Midodrine HCl 5 MG TAB PO SCH ×3 (08:37→20:42)
[2020-02-11] MEDS: Ferrous Sulfate 325 MG TAB PO SCH ×2 (08:37→17:41)
[2020-02-11] MEDS: Calcium Carbonate 500 MG TAB PO SCH ×3 (08:37→20:43)
[2020-02-11] MEDS: Calcitriol 0.25 MCG CAP PO SCH (08:38)
[2020-02-11] MEDS: Ascorbic Acid 500 mg Chewable Tablet PO SCH ×2 (08:38→17:41)
[2020-02-11] MEDS: Magnesium Oxide 400 MG TAB PO SCH ×2 (08:39→20:42)
[2020-02-11] MEDS: Sodium Chloride 1 GM TAB PO SCH ×2 (08:39→20:42)
[2020-02-11] MEDS: Thiamine 100 MG TAB PO SCH (08:39)
[2020-02-11] MEDS: Allopurinol 100 MG TAB PO SCH (08:39)
[2020-02-11] MEDS: Sevelamer Carbonate 800 MG TAB PO SCH ×3 (08:39→17:41)
[2020-02-11] MEDS: Gabapentin 100 MG CAP PO SCH ×3 (08:39→20:42)
[2020-02-11] MEDS: Finasteride 5 MG TAB PO SCH (08:39)
[2020-02-11] MEDS: Insulin Glargine 6 UNITS in Pre-Filled Syringe 1 EACH SC SCH (08:40)
[2020-02-11] MEDS: EPOETIN ALFA-EPBX (ESRD) 10,000 UNIT/ML VIAL SC SCH (09:13)
[2020-02-11] MEDS: Insulin Regular 300 UNITS/3 ML VIAL SC PRN (11:23)
--- NOTE | 2020-02-11 12:43 | PRG ---
DATE OF SERVICE: 02/11/2020 SERVICE: Nephrology. SUBJECTIVE: A 74-year-old male, seen in followup for hypotension and end-stage renal disease management. Seen during dialysis treatmnent. No new problem. He had 2 episodes of emesis yesterday,but that has subsided. Denied nausea. Oral intake is suboptimal as the patient dislike hospital food. No fever. OBJECTIVE: VITAL SIGNS: Temperature 97.8, pulse 63, respiratory rate 18, SpO2 of 100% on room air, blood pressure 106/64. GENERAL: Obese male, in no distress. Afebrile. Anicteric. Acyanotic. HEENT: Normocephalic and atraumatic. Oral mucosa is moist. CARDIOVASCULAR: Regular rhythm and rate with normal heart sounds 1 and 2. RESPIRATORY: Fair air entry bilaterally with no obvious crackle or rhonchi or use of accessory muscles. GI: Obese, soft, nondistended, nontender with normal bowel sounds. PD catheter noted. EXTREMITIES: Left lower extremity dressing as well as mild thigh edema noted. Other extremities are grossly unremarkable with no obvious erythema or edema. CLINICAL DATA MANAGEMENT DIRECTOR: Conscious, alert, oriented x3 with appropriate mental status. Cranial nerves 2 through 12 are grossly intact. DIAGNOSTIC DATA: CBC showed WBC count of 19.4, hemoglobin of 8.7, platelet of 155. ASSESSMENT: 1. Hypotension: Due to multiple factors related to adrenal insufficiency, hypovolemia, and autonomic neuropathy related to diabetes. Improved. The patient however is still on midodrine. 2. End-stage renal disease, on peritoneal dialysis. The patient is tolerating treatment well. 3. Secondary hyperparathyroidism. Not yet on Sensipar. 4. Vitamin D deficiency, on supplementation. 5. 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 Improved. 6. Hypotension: Continue midodrine. 7. Anemia: Due to acute blood loss anemia superimposed on chronic anemia of chronic kidney disease. Status post blood transfusion. PLAN: We will dialyze the patient tonight with current peritoneal dialysis treatment. Five exchanges of 3 L with dwell time of 1 hour and 32 minutes. We will monitor UF and adjust treatment as tolerated. We will also monitor hemodynamics. We will also continue phosphate binder as well as calcium supplementation and vitamin D supplementation. The patient can be discharged from Nephrology point of view once placement is completed and Trauma, Stroke, Orthopedic Team deems the patient appropriate for discharge. Job ID: [id number] MTDD
[2020-02-11] MEDS: Tamsulosin HCl 0.4 MG CAP PO SCH (20:42)
[2020-02-11] MEDS: Atorvastatin Calcium 40 MG TAB PO SCH (20:42)
[2020-02-11] MEDS: Acetaminophen/Codeine 30-300mg Tablet PO PRN (20:46)
[2020-02-11] MEDS: Loperamide HCl 2 MG CAP PO PRN (23:34)
--- NOTE | 2020-02-12 01:11 | PDOC.BPN ---
- Brief Progress Note DATE OF SERVICE: 02/10/2020 SUBJECTIVE: Mr. Laguerre remained in surgical floor. Patient was seen on round this evening. Patient reports he has been doing good. Patient 's diarrhea resolved today, the last bowel was formed. He developed no fever or shortness of breath. OBJECTIVE: GENERAL: Currently, patient is lying in bed with no acute respiratory distress. VITAL SIGNS: Stable. LUNGS: Clear bilaterally. HEART: Regular rate and rhythm. ABDOMEN: Soft and nondistended. EXTREMITIES: Neurovascularly intact x4. NEUROLOGY: No focal neurology deficits. ASSESSMENT: 1. Status post mechanical fall. 2. Left distal femur fracture, status post repair. 3. Left ankle sprain, conservative treatment. 4. Acute adrenal insufficiency, stable. 5. Acute diarrhea, improved due to lactose intolerance. 6. History of end-stage renal disease, on peritoneal dialysis. 7. Obstructive sleep apnea. 8. Pacemaker. 9. Spinal stenosis. 10. Diabetes. 11. Gastric ulcer. 12. Gastric bypass that is stable. PLAN: Continue supportive care. Continue pain control. Continue working with Physical Therapy, Occupational Therapy. Hold laxative, patient had immodium started. Continue peritoneal dialysis daily. Placement is pending.
[2020-02-12] MEDS: Acetaminophen/Codeine 30-300mg Tablet PO SCH ×4 (03:52→22:49)
[2020-02-12] MEDS: Acetaminophen 325 MG TAB PO SCH ×3 (05:40→17:26)
[2020-02-12] MEDS: Acetaminophen/Codeine 30-300mg Tablet PO PRN ×2 (05:41→11:16)
--- NOTE | 2020-02-12 08:29 | PRG ---
DATE OF SERVICE: 02/12/2020 SERVICE: Nephrology. SUBJECTIVE: A 74-year-old male seen in followup for end-stage renal disease management and hypertension. Seen during dialysis treatment. The patient is hemodynamically stable, still having orthostatic dizziness, however. Still mostly bed-bound, though was able to sit in neuro chair yesterday. No nausea or vomiting in the last 48 hours. OBJECTIVE: VITAL SIGNS: Temperature 98.1, pulse 61, respiratory rate 20, SpO2 of 99% on room air, blood pressure is 115/70. I and O in the last 24 hours showed total intake of 850 with output of 763 (UF from PD). GENERAL: Obese male, in no obvious distress. Comfortable. Afebrile, anicteric , acyanotic. HEENT: Normocephalic, atraumatic. Oral mucosa is moist. CARDIOVASCULAR: Regular rhythm and rate. Normal heart sounds 1 and 2. RESPIRATORY: Good air entry bilaterally with no obvious crackle or rhonchi or use of accessory muscles. GI: Obese, soft, nontender, nondistended with normal bowel sounds. PD catheter noted. EXTREMITIES: Edema of proximal thigh and lower back as well as both elbows noted. Surgical dressing of the left lower extremity noted also with no erythema. SCHOOL SPEECH THERAPIST: Conscious and alert oriented x3 with appropriate mental status. Cranial nerves 2 through 12 are grossly intact. ASSESSMENT: 1. End-stage renal disease, on peritoneal dialysis. The patient is tolerating treatment well. 2. Hypotension/orthostatic hypotension, improved with midodrine. 3. History of hypertension: All antihypertensives are held at this point, except low-dose metoprolol. 4. Hyperphosphatemia on binders. 5. Hypocalcemia on supplementation. 6. Vitamin D deficiency on supplementation. 7. Secondary hyperparathyroidism. Not on treatment at this time due to hypocalcemia. 8. Volume overload: Improved. However patient has positive in intake and output. PLAN: 1. We will continue peritoneal dialysis. We will however change the prescription. We will alternate 1.5 with 2.5 to get better UF. We will also monitor hemodynamics closely. 2. We will continue phosphate binder, vitamin D supplementation and calcium supplementation. Further treatment to follow depending on hospital course. Job ID: [id number] [facility]
[2020-02-12] MEDS: Insulin Glargine 6 UNITS in Pre-Filled Syringe 1 EACH SC SCH (08:46)
[2020-02-12] MEDS: Heparin 5,000 UNITS/ML VIAL SC SCH ×3 (08:47→22:48)
[2020-02-12] MEDS: Sevelamer Carbonate 800 MG TAB PO SCH ×3 (08:49→17:25)
[2020-02-12] MEDS: Calcitriol 0.25 MCG CAP PO SCH (08:50)
[2020-02-12] MEDS: Thiamine 100 MG TAB PO SCH (08:50)
[2020-02-12] MEDS: Ferrous Sulfate 325 MG TAB PO SCH ×2 (08:50→17:25)
[2020-02-12] MEDS: Magnesium Oxide 400 MG TAB PO SCH ×2 (08:50→22:48)
[2020-02-12] MEDS: Sodium Chloride 1 GM TAB PO SCH ×2 (08:50→22:48)
[2020-02-12] MEDS: Midodrine HCl 5 MG TAB PO SCH ×3 (08:50→22:48)
[2020-02-12] MEDS: Ascorbic Acid 500 mg Chewable Tablet PO SCH ×2 (08:50→17:25)
[2020-02-12] MEDS: Saccharomyces boulardii 250 MG CAP PO SCH (08:50)
[2020-02-12] MEDS: Folic Acid/Vit B Comp W-C PO SCH (08:51)
[2020-02-12] MEDS: predniSONE 5 MG TAB PO SCH ×2 (08:51→17:26)
[2020-02-12] MEDS: Gabapentin 100 MG CAP PO SCH ×3 (08:51→22:49)
[2020-02-12] MEDS: Calcium Carbonate 500 MG TAB PO SCH ×3 (08:52→22:47)
[2020-02-12] MEDS: Allopurinol 100 MG TAB PO SCH (08:52)
[2020-02-12] MEDS: Finasteride 5 MG TAB PO SCH (08:53)
[2020-02-12] MEDS: Ondansetron ODT 4 MG TAB PO PRN (09:14)
[2020-02-12 09:58] LABS: Hemoglobin 8.6 g/dL (14.0-18.0); Mean Corpuscular HGB CONC 32.5 g/dL (32.0-36.0); Mean Corpuscular Hemoglobin 32.4 pg (27.0-31.0); Mean Corpuscular Volume 99.8 fL (78.0-98.0); Mean Platelet Volume 7.9 fL (7.4-10.4); Platelet Count 142 thou/uL (130-400); RBC Distribution Width 14.9 % (11.5-14.5); Red Blood Cell (RBC) Count 2.64 mill/uL (4.70-6.10); White Blood Cell (WBC) Count 16.8 thou/uL (4.8-10.8)
--- NOTE | 2020-02-12 10:06 | PRG ---
DATE OF SERVICE: 02/11/2020 SUBJECTIVE: The patient was seen and evaluated this morning during rounds. He was sitting up in bed with no signs of acute distress. He reported that he has not been tolerating much food because the hospital food is not very good. He endorses continued diarrhea today, though improved. Discussed plans that we continue to wait for case management to find placement at this time. The patient is agreeable with plan of care. OBJECTIVE: VITAL SIGNS: Temperature 97.8 Fahrenheit, pulse 66, respiratory rate 18, 100% on room air, blood pressure 106/63. GENERAL: Well-appearing elderly male, lying in bed with no acute signs or symptoms of distress at this time. PULMONARY: Equal chest rise and fall. Clear to auscultation bilaterally. No signs of acute respiratory distress. CARDIAC: Regular rate and rhythm, no murmurs appreciated. GI: Abdomen is soft, nontender, nondistended. EXTREMITIES: Left leg in boot and intact. Mild thigh edema. FORKLIFT TRUCK MECHANIC: GCS is 15. Cranial nerves 2 through 12 grossly intact. LABORATORY FINDINGS: White count 19.4, hemoglobin 8.7, hematocrit 26.9, platelet count 155, neutrophils 6% bands. Glucose overnight 97, 126, 152, 160, 110. Procalcitonin 0.81. DIAGNOSTIC DATA: None. ASSESSMENT: 1. Status post mechanical fall from standing. 2. Left distal periprosthetic femur fracture. 3. Left ankle soft tissue injury. 4. Acute adrenal insufficiency, resolved. 5. Non ST-segment elevation myocardial infarction due to demand ischemia, resolved. 6. Thrombus through cephalic vein of the left arm, stable. 7. Diarrhea, persistent. 8. Leukocytosis, likely due to steroids. PLAN: Continue current diet, physical therapy. Continue Florastor and p.r.n. Imodium as C diff negative. UA and urine culture were not collected last night as the patient did not have enough urine output for these to be collected at that time. Case Management is working right now for placement for the patient. Case Management faxed a copy of the LTAC appeal that Dr. Mcclure cosigned to [facility] on 02/10/2020, and Case Management received a message from [facility] at [place] requesting updated clinicals, which have been sent with current decision from [facility] pending. The patient is stable for discharge at this time, pending placement acceptance. Dr. Helton plans to continue peritoneal dialysis and states that the patient is stable at this time for discharge whenever primary teams are ready. This patient was seen and evaluated by Dr. Lee, and the case was discussed during morning rounds. Job ID: [id number] MTDD
[2020-02-12 10:40] LABS: Band 3 % (5-11); Lymphocytes 10 % (21-51); MDiff Complete? YES; Monocytes 3 % (0-10); Neutrophil 83 % (42-75); Platelet Morphology Comment Appears Adequate; Polychromasia SLIGHT = 2-3 cells (100X) (0-2/hpf); Promyelocytes 1 % (0-0)
[2020-02-12] MEDS: Insulin Regular 300 UNITS/3 ML VIAL SC PRN ×2 (13:13→17:28)
[2020-02-12 14:08] LABS: ALT (SGPT) Less than 7 U/L (8-55); AST (SGOT) 22 U/L (5-34); Albumin 2.3 g/dL (3.4-4.8); Alkaline Phosphatase 166 U/L (40-110); Anion Gap 23 mmol/L (10-20); BUN (Urea Nitrogen) 92 mg/dL (8.4-25.7); Bilirubin, Total 0.9 mg/dL (0.2-1.2); Calc. Creatinine Clearance 12 mL/min (70-130); Calcium 6.9 mg/dL (7.8-10.44); Carbon Dioxide 21 mmol/L (23-31); Chloride 96 mmol/L (98-107); Estimated GFR-MDRD 5; Globulin 2.4 g/dL (2.4-3.5); Glucose 169 mg/dL (83-110); Magnesium 2.6 mg/dL (1.6-2.6); Phosphorus 7.5 mg/dL (2.3-4.7); Potassium 4.4 mmol/L (3.5-5.1); Protein, Total 4.7 g/dL (5.8-8.1); Sodium 136 mmol/L (136-145)
--- NOTE | 2020-02-12 16:46 | PRG ---
DATE OF SERVICE: 02/12/2020 SUBJECTIVE: The patient was seen and evaluated this morning during rounds. He was sitting up in bed with no signs of acute distress. He reports that he vomited a few times yesterday and today, and believes that this is due to the Gatorade he has been drinking. He also reports that his arms tremble a little bit when he is trying to type on his computer, though this has been a chronic issue over the last several weeks. It was discussed with him that we can discontinue the Gatorade at this time and we can discontinue the free water restriction while increasing salt tablets. A repeat BMP did not show any drastic electrolyte changes from prior BMPs that he has had. There has been some reports that he has had some orthostatic hypotension that resolves when the patient sits down, but he does get dizzy at times when he stands up. Dr. Helton consulted on the patient this morning and recommends continued peritoneal dialysis, though he is going to alternate with 1.5 and 2.5 for the peritoneal dialysis prescription while monitoring the hemodynamics closely. The patient does report that his diarrhea has improved and he has had some harder stool. The dietitian also met with the patient yesterday and discussed that Nepro did not actually have lactose in it and would likely not be the cause of his diarrhea over the weekend, and dietitian recommended that the patient continue to take Nepro t.i.d. Updated clinicals were sent to [facility] yesterday for pending approval of LTAC placement for the patient as the patient would reportedly not be able to go to the skilled facility at this time because they would not tolerate him needing peritoneal dialysis there. However, has also reported that [facility] has provided 4 skilled facilities that would approve PD, so they are currently working on placement at one of those locations now. We are continuing to work with Case Management at this time and we will continue to monitor the electrolytes of the patient as his peritoneal dialysis scheduling is changed. The patient is agreeable with the plan of care. OBJECTIVE: VITAL SIGNS: Temperature 98.6 Fahrenheit, pulse 66, respiratory rate 18, 100% on room air, blood pressure 97/53. GENERAL: Well-appearing elderly male, lying in bed, with no acute signs or symptoms of distress. PULMONARY: Equal chest rise and fall. Clear to auscultation bilaterally. No signs of acute respiratory distress. CARDIAC: Regular rate and rhythm, no murmurs appreciated. GI: Abdomen is soft, nontender, nondistended. EXTREMITIES: Left leg in boot and intact. Mild thigh edema. Motor and sensation intact. ADA ACCOMMODATION CONSULTANT: GCS is 15. LABORATORY FINDINGS: White count is 16.8, hemoglobin is 8.6, hematocrit 26.3, platelets 142, 3% bands. Sodium 136, potassium 4.4, chloride 96, carbon dioxide 21, BUN 92, creatinine 9.49, GFR 5, calcium 6.9, phosphorus 7.5, magnesium 2.6. DIAGNOSTIC DATA: None. ASSESSMENT: 1. Status post mechanical fall from standing. 2. Left distal periprosthetic femur fracture. 3. Left ankle soft tissue injury. 4. Acute adrenal insufficiency, resolved. 5. Zox-LY-gythkhe elevation myocardial infarction due to demand ischemia, resolved. 6. Thrombus through cephalic vein of left arm, stable. 7. Diarrhea, improving. 8. Leukocytosis, improving, likely due to steroids that are being tapered. PLAN: Continue current diet with reduced fluid restrictions and reduced Gatorade consumption at this time. Continue physical therapy. Continue Florastor and p.r.n. Imodium as C diff negative. We will continue to work with Case Management for placement for patient. Dr. Helton continues to follow the patient for his peritoneal dialysis and will continue to monitor electrolytes and vitals as his peritoneal dialysis regimen is changed tonight. The patient otherwise remains stable for discharge at this time and we will continue to work on placement. This patient was seen and evaluated by Dr. Lee and the case was discussed during morning rounds. Job ID: [id number] [facility]
[2020-02-12] MEDS: Atorvastatin Calcium 40 MG TAB PO SCH (22:47)
[2020-02-12] MEDS: Tamsulosin HCl 0.4 MG CAP PO SCH (22:48)
--- NOTE | 2020-02-12 23:40 | CT ---
CT HEAD WITHOUT IV CONTRAST COMPARISON: 01/29/2020 HISTORY: Altered mental status/confusion TECHNIQUE: Axial CT imaging at 5 mm intervals from vertex through skull base without contrast FINDINGS: Mild cerebral volume loss is again seen. There is no evidence of an acute infarction, hemorrhage, ma ss effect, or midline shift. The ventricular system is normal in size, shape, and position. Visualized paranasal sinuses are clear. Osseous structures appear intact. CT of the head is stable when compared to prior exam. IMPRESSION: 1. No acute intracranial abnormality demonstrated.
[2020-02-13] MEDS: Acetaminophen 325 MG TAB PO SCH ×4 (00:10→17:57)
--- NOTE | 2020-02-13 02:07 | PRG ---
DATE OF SERVICE: 02/12/2020 SUBJECTIVE: The patient remains on the surgical floor, postop day #13, status post open reduction and internal fixation of the left distal femur fracture. The patient continues to receive his peritoneal dialysis. The patient reports increased tremors to both arms and states unable to control his arms. The patient's spouse called the patient's nurse and reported that she was talking to him on the phone and he was unable to hold the phone due to his tremors. The patient's feels like he has gotten worse. She also reports his speech did not sound normal. The patient currently denies any pain, appears lethargic, and falls back asleep easily. GCS 15. The patient also reports that he feels like he is having a hard time speaking. Spouse also concerned that he has not been able to control his bowel movements and reports diarrhea. I did speak with the patient's son and daughter on the phone, who wishes to have the patient transferred to [facility] as they feel the patient is not improving and is getting worse. OBJECTIVE: VITAL SIGNS: Blood pressure 115/70, pulse 67, respirations 18, SpO2 of 97% on room air, temperature 98.6. GENERAL: Elderly male, lying in hospital bed, lethargic, mildly slow to respond. HEENT: Head is atraumatic and normocephalic. Pupils are equal bilateral 3 mm, extraocular muscles intact, mucous membranes slightly dry. PULMONARY: Equal chest rise and fall, respirations are even and nonlabored. CARDIAC: Regular rate. Regular rhythm. EXTREMITIES: Moves all extremities, sensation intact in all extremities, left lower extremity in a walking boot. Upper oil producer strength 4/5 and equal, neurovascularly intact x4, essential tremors in upper extremities, difficulty with coordination in bilateral upper extremities. NEUROLOGIC: GCS 15, cranial nerves 2 through 12 intact. DIAGNOSTICS DATA: Brain CT without contrast. Impression, no acute intracranial abnormality. IMPRESSION: 1. Status post mechanical fall from standing. 2. Left distal periprosthetic femur fracture, postop repair. 3. Left ankle soft tissue injury, improving. 4. Acute adrenal insufficiency, resolved. 5. Thrombus in cephalic vein of left arm, stable. 6. Diarrhea, improving. 7. Leukocytosis, improving, likely due to steroids that are being tapered. 8. Essential tremors. 9. Deconditioning. 10. History of end-stage renal disease, on peritoneal dialysis. 11. Obstructive sleep apnea. PLAN: Continue supportive care. We will decrease pain regimen as the patient appears lethargic and schedule Tylenol 3 and only Aleve and Tylenol 3 as needed. We will also decrease the patient's Neurontin dose to twice a day instead to [address] Helton to continue to follow the patient for his peritoneal dialysis. We will repeat labs in the morning. We will attempt to get the patient transferred to [facility] per family request. Job ID: [id number]
[2020-02-13 06:07] LABS: Anion Gap 26 mmol/L (10-20); BUN (Urea Nitrogen) 91 mg/dL (8.4-25.7); Calc. Creatinine Clearance 12 mL/min (70-130); Carbon Dioxide 19 mmol/L (23-31); Chloride 97 mmol/L (98-107); Estimated GFR-MDRD 6; Glucose 155 mg/dL (83-110); Magnesium 2.5 mg/dL (1.6-2.6); Phosphorus 7.4 mg/dL (2.3-4.7); Potassium 4.6 mmol/L (3.5-5.1); Sodium 137 mmol/L (136-145)
[2020-02-13] MEDS: Insulin Glargine 4 UNITS in Pre-Filled Syringe 1 EACH SC SCH (08:59)
[2020-02-13] MEDS: Sevelamer Carbonate 800 MG TAB PO SCH ×3 (09:00→17:56)
[2020-02-13] MEDS: Folic Acid/Vit B Comp W-C PO SCH (09:00)
[2020-02-13] MEDS: Midodrine HCl 5 MG TAB PO SCH ×3 (09:00→21:33)
[2020-02-13] MEDS: Magnesium Oxide 400 MG TAB PO SCH (09:00)
[2020-02-13] MEDS: Sodium Chloride 1 GM TAB PO SCH ×2 (09:01→21:33)
[2020-02-13] MEDS: Saccharomyces boulardii 250 MG CAP PO SCH (09:01)
[2020-02-13] MEDS: Calcitriol 0.25 MCG CAP PO SCH (09:01)
[2020-02-13] MEDS: Calcium Carbonate 500 MG TAB PO SCH ×3 (09:01→21:33)
[2020-02-13] MEDS: Finasteride 5 MG TAB PO SCH (09:01)
[2020-02-13] MEDS: Ascorbic Acid 500 mg Chewable Tablet PO SCH ×2 (09:02→17:56)
[2020-02-13] MEDS: Ferrous Sulfate 325 MG TAB PO SCH ×2 (09:02→17:56)
[2020-02-13] MEDS: Heparin 5,000 UNITS/ML VIAL SC SCH ×3 (09:02→21:33)
[2020-02-13] MEDS: Allopurinol 100 MG TAB PO SCH (09:02)
[2020-02-13] MEDS: Gabapentin 100 MG CAP PO SCH ×2 (09:02→21:33)
[2020-02-13] MEDS: predniSONE 5 MG TAB PO SCH (09:02)
[2020-02-13] MEDS: Thiamine 100 MG TAB PO SCH (09:02)
[2020-02-13] MEDS ORDERED: Albumin 25% 25 GM/100 ML BOT IVPB PRN (09:40)
[2020-02-13 10:24] LABS: ALT (SGPT) Less than 7 U/L (8-55); AST (SGOT) 22 U/L (5-34); Albumin 2.4 g/dL (3.4-4.8); Alkaline Phosphatase 185 U/L (40-110); Bilirubin, Direct 0.9 mg/dL (0.1-0.3); Bilirubin, Total 0.9 mg/dL (0.2-1.2); Protein, Total 4.9 g/dL (5.8-8.1)
[2020-02-13] MEDS: EPOETIN ALFA-EPBX (ESRD) 10,000 UNIT/ML VIAL SC SCH (10:24)
--- NOTE | 2020-02-13 16:10 | PRG ---
DATE OF SERVICE: 02/13/2020 SERVICE: Nephrology. SUBJECTIVE: A 74-year-old male seen in followup for end-stage renal disease management. The patient on PD, developed mental status change of decreased responsiveness as well as tremors and inability to hold cup yesterday. The patient has been getting narcotic analgesic, which was held overnight. He seems to be more awake this morning and conversational. Had an another episode of vomiting yesterday. Had two episodes of vomiting two days ago. Oral intake is still very poor. There is no history of fever or abdominal pain or focal weakness. OBJECTIVE: VITAL SIGNS: Temperature 97.9, pulse 65, respiratory rate 16, SpO2 of 99% on room air, blood pressure is 112/69. In the last 24 hours, the patient took in 240 mL of intake, which may not have been correct, with total output of 2000 on the UF related to peritoneal dialysis. GENERAL: Male patient, in no obvious distress. Afebrile, acyanotic. HEENT: Normocephalic, atraumatic. Oral mucosa is moist. CARDIOVASCULAR: Regular rhythm and rate with normal heart sounds 1 and 2. RESPIRATORY: Fair air entry bilaterally with no obvious crackle or use of accessory muscles. GI: Full, soft, nondistended. PD catheter noted. EXTREMITIES: Mild edema of the extremities especially left upper and lower extremities noted. No erythema appreciated. Surgical dressing and protective footwear on the left lower extremity noted. DAUB COLOR MIXER: The patient is drowsy. He is, however, arousable and conversational when awake. He seems appropriate. Cranial nerves 2 through 12 are grossly intact. Flapping tremor as well as asterixis and weakness of limbs noted. DIAGNOSTIC DATA: Renal function panel showed sodium 137, potassium 4.6, chloride 97, CO2 of 19, BUN 91, creatinine 9.23, glucose 155, calcium 7.0, phosphorus 7.4 , albumin 2.4, magnesium is 2.5. ASSESSMENT: 1. Acute encephalopathy: Etiology is unclear. It seems to be multifactorial from medication as well as uremic encephalopathy. Hepatic encephalopathy cannot be ruled out. Mental status, however, has improved with discontinuation of narcotic pain medication. The patient still has asterixis/flapping tremor. This is concerning for uremia given elevated BUN of 91. 2. Volume status: Improving with adjustment of PD treatment. The patient has UF of 2000 overnight. 3. End-stage renal disease, on peritoneal dialysis. UF has improved. However, BUN is still elevated at 91 with creatinine of 9.23, which is however improved compared to 11 on admission. The presentation of asterixis makes one wonder if PD is not adequate for this patient. The patient already is doing about 10 hours of peritoneal dialysis. 4. Hypocalcemia, on treatment. 5. Vitamin D deficiency. 6. Anemia in chronic kidney disease. 7. Protein-calorie malnutrition with hypoalbuminemia. 8. Hypoalbuminemia. PLAN: 1. I had extensive discussion with the patient and spouse at the bedside about asterixis with concern for possible uremia and inadequate peritoneal dialysis treatment. More so, placement of patient in a [place] [facility] facility has been a problem due to peritoneal dialysis. We will try to start hemodialysis today at least to see if asterixis and uremia will improve. Patient may have to transition to HD to facilitate Placement if PD continue to pose a problem with placement. This was discussed with the patient and spouse and they verbalized understanding and in agreement. 2. We will also start the patient on Megace to help improve appetite. 3. We will also get liver function tests to rule out acute liver pathology. 4. We will also get ammonia level. 5. Further treatment to follow depending on hospital course. Job ID: [id number] [facility]
--- NOTE | 2020-02-13 16:48 | PRG ---
DATE OF SERVICE: 02/13/2020 SUBJECTIVE: The patient was seen and evaluated during morning rounds today. The patient continues to have some arm tremors and last night reportedly had difficulty speaking and became confused at one point. He did have a brain CT that showed no acute abnormalities. It had been discussed with the patient yesterday that his symptoms were likely due to his uremia from the inadequacy of his peritoneal dialysis that has been happening daily. Dr. Helton has been following him for his dialysis and per patient's report, Dr. Helton came and spoke with him this morning and plans to begin hemodialysis today 02/13/2020. This will likely greatly benefit the patient both from a mental status as well as neurological and musculoskeletal status as well. The patient and his are both agreeable with the plan of care starting hemodialysis at this time. Overnight, his pain regimen was deescalated from gabapentin t.i.d. to b.i.d. and his scheduled Tylenol No. 3 was changed to p.r.n. His long-acting insulin schedule was also decreased from 6 units to 4 units of Lantus q.a.m. We will continue to monitor the patient with these changes and follow his status s/p hemodialysis. The patient is agreeable. OBJECTIVE: VITAL SIGNS: Temperature 98 degree Fahrenheit, pulse 69, respiratory rate 14, 100% on room air, blood pressure 129/57. GENERAL: Elderly male, lying upright in bed, in no acute distress at this time. HEENT: Head is normocephalic, atraumatic. Trachea midline. RESPIRATORY: Equal rise and fall. Clear to auscultation bilaterally. CARDIOVASCULAR: Regular rate and rhythm. No murmurs appreciated. ABDOMEN: Nondistended, nontender to palpation. MUSCULOSKELETAL: Bandaging in place. Sensation and motor strength intact throughout. No active tremor appreciated. NEUROLOGICAL: Sensation intact throughout. PSYCH: A and O X4. LABORATORY DATA: Sodium 137, potassium 4.6, chloride 97, carbon dioxide 19, BUN 91, creatinine 9.23, GFR of 6, phosphorus of 7.4, magnesium 2.5. DIAGNOSTIC IMAGING: Brain CT, mild cerebral volume loss. No evidence of acute infarction, hemorrhage, mass effect or midline shift. The ventricular system is normal in size, shape and position. ASSESSMENT: 1. Status post mechanical fall from standing. 2. Left distal periprosthetic femur fracture. 3. Left ankle soft tissue injury. 4. Acute renal insufficiency, resolved. 5. Non ST-segment elevation myocardial infarction due to demand ischemia, resolved. 6. Thrombus to cephalic vein of left arm, stable. 7. Diarrhea, improving. 8. Leukocytosis, improving, likely due to steroid, however, continues to being tapered. 9. Uremia, chronic with patient with end-stage renal disease, on peritoneal dialysis. 10. New utilization of hemodialysis. PLAN: We will continue current diet at this time. The patient to continue physical therapy. He is to continue Florastor p.r.n. and Imodium for diarrhea. The patient to begin hemodialysis with Dr. Helton today. We will continue to monitor electrolytes, mental status, and musculoskeletal and neurological function, status post hemodialysis. Case management continues to work for placement for the patient at this time. We will continue to follow with Case Management. We will continue to monitor. Dr. Lee saw the patient on morning rounds and discussed the case with the Trauma team. He was agreeable with the plan of care. Job ID: [id number] [facility]
[2020-02-13] MEDS: Atorvastatin Calcium 40 MG TAB PO SCH (21:33)
[2020-02-13] MEDS: Tamsulosin HCl 0.4 MG CAP PO SCH (21:33)
[2020-02-14] MEDS: Acetaminophen/Codeine 30-300mg Tablet PO PRN ×2 (00:17→06:11)
[2020-02-14] MEDS: Acetaminophen 325 MG TAB PO SCH ×5 (00:17→23:52)
--- NOTE | 2020-02-14 01:35 | PRG ---
DATE OF SERVICE: 02/13/2020 SUBJECTIVE: The patient remains on the surgical floor, awake, alert, no distress. The patient's pain is currently well controlled at this time. The patient is less tremulous than yesterday evening. The patient still complains of some vision changes and feels like he is still having some difficulty speaking. The patient received hemodialysis earlier today. OBJECTIVE: VITAL SIGNS: Stable, afebrile. HEENT: Head is normocephalic, atraumatic. Trachea is midline. RESPIRATORY: Equal chest rise and fall, respirations are even and nonlabored. CARDIOVASCULAR: Regular rate. Regular rhythm. MUSCULOSKELETAL: Walking boot, left lower extremity. Neurovascularly intact x4. NEUROLOGIC: No focal deficit. ASSESSMENT: 1. Status post mechanical fall from standing. 2. Left distal periprosthetic femur fracture, postop repair. 3. Left ankle soft tissue injury, improving. 4. End-stage renal disease, on dialysis. 5. Thrombus to cephalic vein, left arm, stable. 6. Diarrhea, improving. 7. Leukocytosis, improving. 8. Uremia, chronic end-stage renal disease, on peritoneal dialysis. 9. New utilization of hemodialysis. PLAN: Continue current diet and supportive care. Continue to increase physical and occupational therapy. Continue to monitor electrolytes. Case Management is working on placement. The patient is ready for discharge at this time. Job ID: [id number]
[2020-02-14 06:31] LABS: Band 6 % (5-11); Eosinophils 1 % (0-10); Hemoglobin 7.1 g/dL (14.0-18.0); Hypochromia SLIGHT = 6-15 cells (100X) (0-5/hpf); Lymphocytes 5 % (21-51); MDiff Complete? YES; Mean Corpuscular HGB CONC 31.4 g/dL (32.0-36.0); Mean Platelet Volume 7.6 fL (7.4-10.4); Neutrophil 88 % (42-75); Platelet Count 135 thou/uL (130-400); Platelet Morphology Comment Appears Adequate; RBC Distribution Width 15.1 % (11.5-14.5); Red Blood Cell (RBC) Count 2.23 mill/uL (4.70-6.10); White Blood Cell (WBC) Count 14.5 thou/uL (4.8-10.8)
[2020-02-14 06:46] LABS: Anion Gap 24 mmol/L (10-20); BUN (Urea Nitrogen) 78 mg/dL (8.4-25.7); Calc. Creatinine Clearance 13 mL/min (70-130); Carbon Dioxide 22 mmol/L (23-31); Chloride 96 mmol/L (98-107); Estimated GFR-MDRD 7; Glucose 82 mg/dL (83-110); Magnesium 2.4 mg/dL (1.6-2.6); Phosphorus 5.9 mg/dL (2.3-4.7); Potassium 4.6 mmol/L (3.5-5.1); Sodium 137 mmol/L (136-145)
[2020-02-14] MEDS: Heparin 5,000 UNITS/ML VIAL SC SCH ×3 (09:12→21:10)
[2020-02-14] MEDS: Megestrol Acetate 800 MG/20 ML UDCUP PO SCH (09:12)
[2020-02-14] MEDS: Insulin Glargine 4 UNITS in Pre-Filled Syringe 1 EACH SC SCH (09:14)
[2020-02-14] MEDS: Midodrine HCl 5 MG TAB PO SCH ×3 (09:14→21:10)
[2020-02-14] MEDS: Ergocalciferol 1.25 MG(50,000 UNITS) CAP PO SCH (09:14)
[2020-02-14] MEDS: Thiamine 100 MG TAB PO SCH (09:14)
[2020-02-14] MEDS: Saccharomyces boulardii 250 MG CAP PO SCH (09:14)
[2020-02-14] MEDS: Calcitriol 0.25 MCG CAP PO SCH (09:15)
[2020-02-14] MEDS: Finasteride 5 MG TAB PO SCH (09:15)
[2020-02-14] MEDS: Sevelamer Carbonate 800 MG TAB PO SCH ×3 (09:15→17:50)
[2020-02-14] MEDS: predniSONE 5 MG TAB PO SCH (09:15)
[2020-02-14] MEDS: Calcium Carbonate 500 MG TAB PO SCH ×3 (09:15→21:10)
[2020-02-14] MEDS: Sodium Chloride 1 GM TAB PO SCH (09:15)
[2020-02-14] MEDS: Folic Acid/Vit B Comp W-C PO SCH (09:15)
[2020-02-14] MEDS: Gabapentin 100 MG CAP PO SCH ×2 (09:15→21:10)
[2020-02-14] MEDS: Ascorbic Acid 500 mg Chewable Tablet PO SCH ×2 (09:16→17:50)
[2020-02-14] MEDS: Ferrous Sulfate 325 MG TAB PO SCH ×2 (09:16→17:50)
[2020-02-14] MEDS: Allopurinol 100 MG TAB PO SCH (09:16)
[2020-02-14] MEDS: Insulin Regular 300 UNITS/3 ML VIAL SC PRN (12:40)
--- NOTE | 2020-02-14 14:17 | PRG ---
DATE OF SERVICE: 02/14/2020 SUBJECTIVE: The patient was seen and evaluated during morning rounds today. He was sitting up in bed, in no acute distress. Discussed that he started hemodialysis yesterday, then the patient reports that he continues to feel better today. He denies any complaints today aside from continued diarrhea, and reports that his tremors have improved. Discussed that Case Management has been putting in new referrals for him to be able to go to a skilled facility now that he has hemodialysis and the patient is agreeable with the plan of care. Discussed with Dr. Helton that he plans to perform hemodialysis again today and will continue to monitor his electrolyte status post dialysis. Mr. Laguerre's hemoglobin was 7.1 this morning and discussed with Dr. Helton that if he felt it was necessary, he can give another unit of blood while the patient is in dialysis. OBJECTIVE: VITAL SIGNS: Temperature 98.4, pulse 70, respiratory rate 18, 100% on room air, and blood pressure 131/72. GENERAL: Elderly male, sitting upright in bed, in no acute distress and cooperative with conversation and exam. HEENT: Head is normocephalic and atraumatic. Midline trachea. RESPIRATORY: Equal rise and fall. No acute distress noted. CARDIOVASCULAR: Regular rate and rhythm. ABDOMEN: Nondistended and nontender. MUSCULOSKELETAL: Left boot in place. Pulses intact throughout. NEUROLOGIC: Sensation intact throughout. LABORATORY DATA: White count 14.4, hemoglobin 7.1, hematocrit 22.7, platelets 135, and 6% bands. Sodium 137, potassium 4.6, chloride 96, carbon dioxide 22, BUN 78, creatinine 8.16, GFR 7, calcium 7.0, phosphorus 5.9, and magnesium 2.4. DIAGNOSTIC IMAGING: No new imaging to report. ASSESSMENT: 1. Status post mechanical fall from standing. 2. Left distal periprosthetic femur fracture. 3. Left ankle soft tissue injury. 4. Acute renal insufficiency, resolved. 5. Non ST-segment elevation myocardial infarction due to demand ischemia, resolved. 6. Thrombus to cephalic vein of left arm, stable. 7. Diarrhea, improving. 8. Leukocytosis, improving, likely due to steroids that are currently being tapered, no bands appreciated. 9. Uremia, chronic; the patient started hemodialysis yesterday and this is improved. 10. The patient currently on hemodialysis. PLAN: We will continue current diet at this time. The patient did endorse slight diarrhea today and yesterday and will continue with Florastor and Imodium p.r.n. The patient has been started on Megace to help with appetite, we will continue. We will continue Nepro t.i.d. for diet. The patient should continue working with PT and OT at this time. The patient to continue having hemodialysis with Dr. Helton, possible blood transfusion during dialysis, pending Dr. Helton's recommendations. We will continue to monitor electrolytes, mental status, and the patient's clinical function. Case Management to continue working on placement for the patient now that he is on hemodialysis. Dr. Lee saw the patient and evaluated him during morning rounds. He discussed the case and is agreeable with the plan of care. Job ID: [id number] [facility]
--- NOTE | 2020-02-14 15:17 | PRG ---
DATE OF SERVICE: 02/14/2020 SERVICE: Nephrology. SUBJECTIVE: A 74-year-old male, seen in followup for end-stage renal disease management. Seen during Hemodiialysis. The patient on PD, was having decreased responsiveness as well as asterixis. Thought to have uremic encephaloathy due to inadequate dialysis. He was transitioned to hemodialysis with first treatment yesterday. Mental status and asterixis have improved. No nausea or vomiting. The patient reports feeling a lot better. OBJECTIVE: VITAL SIGNS: Temperature 98.4, pulse 70, respiratory rate 18, SpO2 of 100% on room air, and blood pressure is 116/62. GENERAL: Elderly male, in no obvious distress. Afebrile. Anicteric. Acyanotic. HEENT: Normocephalic, atraumatic. Oral mucosa is moist. CARDIOVASCULAR: Regular rhythm and rate with normal heart sounds 1 and 2. RESPIRATORY: Fair air entry bilaterally with no obvious crackles or rhonchi or use of accessory muscles. GI: Full, soft, nontender, nondistended with normal bowel sounds. PD catheter noted. UROGENITAL: Grossly normal. EXTREMITIES: Moderate edema of the left extremities noted. Surgical dressing on the left lower extremity also is noted. 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 Cranial nerves 2 through 12 are grossly intact. Flapping tremor/asterixis noted. DIAGNOSTIC DATA: CBC showed WBC count of 14.5, hemoglobin of 7.1, and platelets of 135. Chemistry showed sodium 137, potassium 4.6, chloride 96, CO2 of 22, BUN 78, creatinine 8.16, glucose 82, calcium 7.0, phosphorus 5.9, and magnesium 2.4. ASSESSMENT: 1. Acute encephalopathy: Due to uremia most likely. Despite extended period of PD, it does look like the patient was not getting enough treatment. Now on hemodialysis, with improved mental status and asterixis. 2. End-stage renal disease: Transitioned to hemodialysis due to inadequate PD as well as to facilitate placement in a intermediate. 3. Hyperphosphatemia: Improving. 4. Secondary hyperparathyroidism. 5. Acute anemia with hemoglobin down to 7.1 from 8.5 yesterday. The patient had some bleeding from the lateral aspect of left thigh at the site of open reduction and internal fixation. He also has chronic anemia from chronic kidney disease. 6. Vitamin D deficiency. 7. Volume overload. 8. History of hypertension: Blood pressure is soft currently, and the patient is off antihypertensives. 9. Orthostatic dizziness/hypotension: Improved with midodrine. 10. Hyponatremia: Resolved. PLAN: 1. We will discontinue sodium tablets. 2. Dialyze the patient today for 3 hours. Tolerating treatments with stable hemodynamics with increased blood and dialysate floow rates. We will continue to hold peritoneal dialysis for now. 3. We will continue midodrine, calcium supplementation as well as phosphate binder and erythrocyte-stimulating agent. 4. We will recheck renal function and CBC in the morning. If hemoglobin remains consistently low, we will consider transfusing 1 unit of packed red blood cells tomorrow with hemodialysis. Further treatment to follow depending on hospital course. Job ID: [id number] [facility]
[2020-02-14] MEDS: Atorvastatin Calcium 40 MG TAB PO SCH (21:10)
[2020-02-14] MEDS: Tamsulosin HCl 0.4 MG CAP PO SCH (21:10)
[2020-02-14] MEDS ORDERED: Loperamide HCl 2 MG CAP PO SCH (23:30)
--- NOTE | 2020-02-15 00:02 | PRG ---
DATE OF SERVICE: 02/14/2020 SUBJECTIVE: The patient remains on the surgical floor, awake, alert, in no distress. The patient reports feeling much better and his tremors have improved. His only complaint is frequent diarrhea, in which he has had approximately 13 episodes today. The patient was started on Imodium as needed several days ago, although the patient has not had any doses of Imodium for the last couple of days. OBJECTIVE: VITAL SIGNS: Stable, afebrile. GENERAL: Elderly male, sitting up in bed, in no acute distress. RESPIRATORY: Equal chest rise and fall, no respiratory distress. CARDIOVASCULAR: Regular rate. Regular rhythm. EXTREMITIES: Moves all extremities. Neurovascularly intact x4, left lower extremity with walking boot in place. NEUROLOGIC: No focal deficits. IMPRESSION: 1. Status post mechanical fall from standing. 2. Left distal periprosthetic femur fracture, status post repair. 3. Right ankle soft tissue injury, improved. 4. End-stage renal disease, on hemodialysis. 5. Thrombus to cephalic vein, left arm, stable. 6. Continued diarrhea. 7. Uremia, chronic, started on hemodialysis yesterday, improved. PLAN: Continue pain regimen and supportive care. We will give a dose of Imodium now and ensure that the patient continues to get it as needed. Continue physical therapy and occupational therapy. Dr. Helton plans to hemodialyze the patient tomorrow. We will obtain labs in the morning and give a unit of blood with dialysis if needed. Case management continues to work on placement. The patient is ready for discharge at this time. Job ID: [id number]
[2020-02-15] MEDS: Acetaminophen 325 MG TAB PO SCH ×3 (05:05→17:32)
[2020-02-15 06:37] LABS: Anion Gap 20 mmol/L (10-20); BUN (Urea Nitrogen) 59 mg/dL (8.4-25.7); Calc. Creatinine Clearance 17 mL/min (70-130); Calcium 7.5 mg/dL (7.8-10.44); Carbon Dioxide 22 mmol/L (23-31); Chloride 98 mmol/L (98-107); Estimated GFR-MDRD 9; Glucose 208 mg/dL (83-110); Magnesium 2.2 mg/dL (1.6-2.6); Potassium 4.7 mmol/L (3.5-5.1); Sodium 135 mmol/L (136-145)
[2020-02-15] MEDS: Insulin Regular 300 UNITS/3 ML VIAL SC PRN ×2 (06:40→18:04)
[2020-02-15 07:20] LABS: Band 23 % (5-11); Hemoglobin 7.7 g/dL (14.0-18.0); Lymphocytes 2 % (21-51); MDiff Complete? YES; Macrocytosis SLIGHT = 6-15 cells (100X) (0-5/hpf); Mean Corpuscular HGB CONC 31.8 g/dL (32.0-36.0); Mean Corpuscular Hemoglobin 32.7 pg (27.0-31.0); Mean Platelet Volume 8.3 fL (7.4-10.4); Monocytes 2 % (0-10); Neutrophil 73 % (42-75); Ovalocytes SLIGHT = 2-5 cells (100X) (0-1/hpf); Platelet Count 123 thou/uL (130-400); Platelet Morphology Comment Appears Decreased; Polychromasia SLIGHT = 2-3 cells (100X) (0-2/hpf); RBC Distribution Width 15.3 % (11.5-14.5); Red Blood Cell (RBC) Count 2.36 mill/uL (4.70-6.10); White Blood Cell (WBC) Count 17.8 thou/uL (4.8-10.8)
[2020-02-15] MEDS: Gabapentin 100 MG CAP PO SCH ×2 (14:06→21:53)
[2020-02-15] MEDS: predniSONE 5 MG TAB PO SCH (14:06)
[2020-02-15] MEDS: Allopurinol 100 MG TAB PO SCH (14:06)
[2020-02-15] MEDS: Calcitriol 0.25 MCG CAP PO SCH (14:07)
[2020-02-15] MEDS: Folic Acid/Vit B Comp W-C PO SCH (14:07)
[2020-02-15] MEDS: Finasteride 5 MG TAB PO SCH (14:07)
[2020-02-15] MEDS: Thiamine 100 MG TAB PO SCH (14:07)
[2020-02-15] MEDS: Midodrine HCl 5 MG TAB PO SCH ×3 (14:08→21:53)
[2020-02-15] MEDS: Sevelamer Carbonate 800 MG TAB PO SCH ×3 (14:09→17:32)
[2020-02-15] MEDS: Megestrol Acetate 800 MG/20 ML UDCUP PO SCH (14:09)
[2020-02-15] MEDS: Calcium Carbonate 500 MG TAB PO SCH ×3 (14:10→21:53)
[2020-02-15] MEDS: Saccharomyces boulardii 250 MG CAP PO SCH (14:10)
[2020-02-15] MEDS: Ascorbic Acid 500 mg Chewable Tablet PO SCH ×2 (14:10→17:32)
[2020-02-15] MEDS: Ferrous Sulfate 325 MG TAB PO SCH ×2 (14:10→17:31)
[2020-02-15] MEDS: Heparin 5,000 UNITS/ML VIAL SC SCH ×3 (14:11→21:54)
[2020-02-15] MEDS: Insulin Glargine 4 UNITS in Pre-Filled Syringe 1 EACH SC SCH (14:11)
--- NOTE | 2020-02-15 14:24 | PRG ---
DATE OF SERVICE: SERVICE: Nephrology. SUBJECTIVE: The patient seen in followup for end-stage renal disease management. The patient was transitioned to hemodialysis from peritoneal dialysis due to azotemia and asterixis as well as mental status change. Seen during Dialysis. Mental status change and asterixis have improved. The patient, however, continued to complain of left upper extremity edema. OBJECTIVE: VITAL SIGNS: Temperature 98.2, pulse 73, respiratory rate 14, SpO2 of 96% on room air, blood pressure is 109/48. GENERAL: Obese male, in no obvious distress. Afebrile. Anicteric. Acyanotic. HEENT: Normocephalic, atraumatic. Oral mucosa is moist. CARDIOVASCULAR: Regular rhythm and rate with normal heart sounds 1 and 2. RESPIRATORY: Fair air entry bilaterally with no obvious crackle or rhonchi or use of accessory muscles. GI: Obese, soft, nontender, nondistended with normal bowel sounds. PD catheter noted. EXTREMITIES: Moderate to severe edema of left upper extremity and mild edema of left lower extremity noted. 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 Mild flapping tremor noted. DIAGNOSTIC DATA: CBC showed WBC count of 17.8, hemoglobin of 7.7, and platelets of 123. Chemistry showed sodium 135, potassium 4.7, chloride 98, CO2 of 22, BUN 59, creatinine 6.36, glucose 208, calcium 7.5, phosphorus 5.0, magnesium 2.2. ASSESSMENT: 1. Uremic encephalopathy due to inadequate dialysis treatment. Improving with transition to hemodialysis. 2. End-stage renal disease. The patient was on peritoneal dialysis, now transition to hemodialysis. Tolerating HD well. Change to hemodialysis also was made to facilitate discharge to a care home facility. The patient on peritoneal dialysis, was declined placement to LTAC or acute rehab by insurance and was declined also by care home facility due to peritoneal dialysis. 3. Anemia in chronic kidney disease. 4. Acute blood loss anemia due to left lower extremity trauma and open reduction and internal fixation. 5. Marked azotemia. Improved with hemodialysis. 6. Hyperphosphatemia. 7. Secondary hyperparathyroidism. 8. Hypocalcemia. 9. Hyponatremia. 10. Hypotension: Due to adrenal insufficiency as well as volume depletion, improving. 11. Orthostatic hypotension. The patient has diabetes, making autonomic neuropathy most likely. 12. History of hypertension: Currently off antihypertensives. 13. Edema of left lower extremity, improved related to trauma. 14. Left upper extremity moderate to severe edema. Etiology is unclear. PLAN: Dialyze the patient today for 4 hours with UF as tolerated employing increased blood and dialysate flow rates. We will also plan on dialyzing the patient tomorrow. We will also continue erythrocyte stimulating agent, phosphate binder, calcium supplementation as well as vitamin D supplementation. Further treatment to follow depending on hospital course. Job ID: [id number] [facility]
[2020-02-15] MEDS: Loperamide HCl 2 MG CAP PO PRN ×2 (17:32→21:54)
[2020-02-15] MEDS: EPOETIN ALFA-EPBX (ESRD) 10,000 UNIT/ML VIAL SC SCH (18:04)
--- NOTE | 2020-02-15 19:03 | PRG ---
DATE OF SERVICE: 02/15/2020 SUBJECTIVE: The patient was seen this afternoon after dialysis. He was lying in bed with no signs of acute distress. His pain is well controlled. Tolerated dialysis well. His only complaint is his persistent very small volumes of loose stool. OBJECTIVE: VITAL SIGNS: Temperature 98.2, pulse 74, respirations 18, oxygen saturation 96% on room air, blood pressure 115/68. GENERAL: Well-appearing elderly male, lying in bed with no signs of acute distress. PULMONARY: Equal chest rise and fall. Clear breath sounds bilaterally. No signs of acute respiratory distress. CARDIAC: Regular rate and rhythm. GI: Abdomen is soft, nontender, nondistended. EXTREMITIES: 2+ pulses in all extremities. Gross motor and sensation are intact. No significant swelling noted. NEUROLOGIC: GCS 15. LABORATORY FINDINGS: White count 17.8, hemoglobin 7.7, hematocrit 24.3, platelets 123. Sodium 135, potassium 4.7, chloride 98, bicarb 22, BUN 59, creatinine 6.36, glucose 208, phosphorus 5.0, magnesium 2.2. ASSESSMENT: 1. Status post mechanical fall from standing. 2. Left distal periprosthetic femur fracture, status post repair. 3. Left ankle sprain. 4. Acute adrenal insufficiency, resolved. 5. Qmg-[id number] myocardial infarction due to demand ischemia, resolved. 6. Thrombus to cephalic vein of the left upper extremity, resolved. 7. Diarrhea, improving. 8. History of end-stage renal disease, on peritoneal dialysis; obstructive sleep apnea; pacemaker; spinal stenosis; diabetes; gastric ulcer; and gastric bypass. PLAN: Continue current diet and pain regimen. Continue physical and occupational therapy. Continue dialysis per Dr. Helton. The patient is ready for discharge at this time. Increase physical and occupational therapy pending placement at a fpc facility. Job ID: [id number]
[2020-02-15] MEDS: Atorvastatin Calcium 40 MG TAB PO SCH (21:54)
[2020-02-15] MEDS: Tamsulosin HCl 0.4 MG CAP PO SCH (21:55)
[2020-02-16] MEDS: Acetaminophen 325 MG TAB PO SCH ×6 (01:33→23:20)
--- NOTE | 2020-02-16 03:20 | PRG ---
DATE OF SERVICE: 02/15/2020 SUBJECTIVE: The patient remains on the surgical floor. Currently resting, in no acute distress. Nursing staff reports he has had 2 full bowel movements. Otherwise, he has had some very small smears. The patient continues to receive Imodium for his diarrhea. The patient did receive dialysis earlier today. OBJECTIVE: VITAL SIGNS: Stable, afebrile. GENERAL: Elderly male, sleeping, in no acute distress. IMPRESSION: 1. Status post mechanical fall from standing. 2. Left distal periprosthetic femur fracture, status post repair. 3. Left ankle sprain. 4. Acute adrenal insufficiency, resolved. 5. Demand ischemia, resolved. 6. Thrombosis to the cephalic vein of the left upper extremity, resolved. 7. Diarrhea, improving. 8. History of end-stage renal disease, on peritoneal dialysis, now receiving hemodialysis, obstructive sleep apnea, pacemaker, spinal stenosis, diabetes, gastric ulcer, and gastric bypass surgery. PLAN: Continue current diet and pain regimen. Continue physical and occupational therapy. Continue dialysis per Dr. Helton. The patient is ready for discharge at this time. The patient is pending placement. Job ID: [id number]
[2020-02-16] MEDS: Loperamide HCl 2 MG CAP PO PRN ×4 (03:50→21:37)
[2020-02-16] MEDS: Heparin 5,000 UNITS/ML VIAL SC SCH ×3 (07:49→21:38)
[2020-02-16] MEDS: Ferrous Sulfate 325 MG TAB PO SCH ×2 (08:19→17:59)
[2020-02-16] MEDS: Thiamine 100 MG TAB PO SCH (08:19)
[2020-02-16] MEDS: Saccharomyces boulardii 250 MG CAP PO SCH (08:20)
[2020-02-16] MEDS: Calcitriol 0.25 MCG CAP PO SCH (08:20)
[2020-02-16] MEDS: Folic Acid/Vit B Comp W-C PO SCH (08:20)
[2020-02-16] MEDS: Finasteride 5 MG TAB PO SCH (08:20)
[2020-02-16] MEDS: Calcium Carbonate 500 MG TAB PO SCH ×3 (08:21→21:37)
[2020-02-16] MEDS: Ascorbic Acid 500 mg Chewable Tablet PO SCH ×2 (08:21→17:59)
[2020-02-16] MEDS: Megestrol Acetate 800 MG/20 ML UDCUP PO SCH (08:21)
[2020-02-16] MEDS: Gabapentin 100 MG CAP PO SCH ×2 (08:21→21:37)
[2020-02-16] MEDS: predniSONE 5 MG TAB PO SCH (08:21)
[2020-02-16] MEDS: Insulin Glargine 4 UNITS in Pre-Filled Syringe 1 EACH SC SCH (08:21)
[2020-02-16] MEDS: Midodrine HCl 5 MG TAB PO SCH ×3 (08:21→21:37)
[2020-02-16] MEDS: Allopurinol 100 MG TAB PO SCH (08:21)
[2020-02-16] MEDS: Sevelamer Carbonate 800 MG TAB PO SCH ×3 (08:22→17:59)
[2020-02-16] MEDS: Acetaminophen/Codeine 30-300mg Tablet PO PRN (08:30)
[2020-02-16 09:10] LABS: Band 8 % (5-11); Hemoglobin 7.6 g/dL (14.0-18.0); Lymphocytes 4 % (21-51); MDiff Complete? YES; Mean Corpuscular HGB CONC 33.3 g/dL (32.0-36.0); Mean Corpuscular Hemoglobin 34.1 pg (27.0-31.0); Mean Platelet Volume 7.9 fL (7.4-10.4); Monocytes 2 % (0-10); Neutrophil 86 % (42-75); Platelet Count 128 thou/uL (130-400); RBC Distribution Width 15.1 % (11.5-14.5); Red Blood Cell (RBC) Count 2.23 mill/uL (4.70-6.10); White Blood Cell (WBC) Count 17.3 thou/uL (4.8-10.8)
[2020-02-16] MEDS: Albumin 25% 25 GM/100 ML BOT IVPB SCH ×2 (10:34→10:49)
--- NOTE | 2020-02-16 14:14 | PRG ---
DATE OF SERVICE: 02/16/2020 SERVICE: Nephrology. SUBJECTIVE: A 74-year-old male, seen in followup for management of end-stage renal disease. Seen during Hemodialysis which was stopped due to access issue. Pateint reportedly moved and needle extravasated. The patient reports feeling better otherwise. Tremors and flapping tremor has resolved. Stool frequency also has improved. Oral intake is improving. OBJECTIVE: VITAL SIGNS: Temperature 98.2, pulse 84, respiratory rate 18, SpO2 of 97% on room air, blood pressure is 111/65. GENERAL: Comfortable male patient, in no distress. Afebrile. Anicteric. Acyanotic. HEENT: Normocephalic, atraumatic. Oral mucosa is moist. CARDIOVASCULAR: Regular rhythm and rate. Normal heart sounds one and two. RESPIRATORY: Fair air entry bilaterally with no obvious crackle or rhonchi or use of accessory muscles. GI: Obese, soft, nontender, nondistended with normal bowel sounds. Mild abdominal wall edema noted as well as PD catheter noted in place. EXTREMITIES: Mild edema of the extremities on the right and [id number] edema of the left extremities. 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 Cranial nerves 2 through 12 are grossly intact. No tremor or asterixis noted. DIAGNOSTIC DATA: CBC showed WBC count of 17.3, hemoglobin of 7.6, platelet of 128. ASSESSMENT: 1. Uremic encephalopathy: Due to inadequate dialysis treatment through peritoneal dialysis. Some contribution from narcotic analgesic cannot be ruled out. Markedly improved with transitioning to hemodialysis. 2. Volume overload: Improved with hemodialysis with UF. 3. Hypotension: Improved with midodrine. 4. History of hypertension. Still off antihypertensives. 5. Hyponatremia, improved. 6. Secondary hyperparathyroidism. 7. Vitamin D deficiency, on supplementation. 8. Metabolic acidosis, improved with dialysis. 9. Anemia in chronic kidney disease. 10.ESRD now on HD. PLAN: 1. We will dialyze the patient today for 4 hours with UF as tolerated as planned. Will re cannulated the AVF and complete dialysis as planned.. 2. We will continue phosphate binder as well as erythrocyte-stimulating agent, calcium supplementation, and vitamin D supplementation. Further treatment to follow depending on hospital course. The patient can be discharged from Nephrology point of view once placement is sorted out. Job ID: [id number] [facility]
[2020-02-16] MEDS: Insulin Regular 300 UNITS/3 ML VIAL SC PRN ×2 (16:10→21:40)
--- NOTE | 2020-02-16 18:40 | PRG ---
DATE OF SERVICE: 02/16/2020 SUBJECTIVE: The patient was seen this afternoon after dialysis. He was sitting up in bed and he complained of some sacral soreness. Nursing reported redness at that site. Mepilex has been placed. Still complaining of persistent small volume multiple bouts of diarrhea throughout the day. Otherwise, he has no acute issues and is pending placement. OBJECTIVE: VITAL SIGNS: Temperature 98, pulse 88, respirations 18, oxygen saturation 99% on room air, and blood pressure 144/70. GENERAL: Well-appearing elderly male, sitting up in bed with no signs of acute distress. PULMONARY: Equal chest rise and fall. Clear breath sounds bilaterally. No signs of acute respiratory distress. CARDIAC: Regular rate and rhythm. GI: Abdomen is soft, nontender, and nondistended. EXTREMITIES: 2+ pulses in all extremities. Gross motor and sensation intact. No significant swelling noted. NEUROLOGIC: GCS is 15. LABORATORY FINDINGS: White count 17.3, hemoglobin 7.6, hematocrit 22.9, and platelets 128. DIAGNOSTIC FINDINGS: No new diagnostic findings to report. ASSESSMENT: 1. Status post mechanical fall from standing. 2. Left distal periprosthetic femur fracture, status post repair. 3. Left ankle sprain. 4. History of end-stage renal disease, on dialysis; obstructive sleep apnea; pacemaker; spinal stenosis; diabetes; gastric ulcers; gastric bypass. PLAN: Continue current diet and pain regimen. Continue physical and occupational therapy. Nursing to start placing wedges on the patient q.2 to 4 hours bilaterally in order to relieve pressure on the patient's buttocks to prevent further irritation of his sacrum area and prevent decubitus ulcer formation. The patient really does need to get up out of bed and into the chair. He is not very motivated to work with Physical Therapy. We will ask the dietitian to evaluate his intake for this persistent diarrhea, that does not appear to be infectious in any nature. Continue Imodium and Florastor. The patient is ready for discharge at this time. He is pending skilled facility acceptance. Job ID: [id number]
[2020-02-16] MEDS: Atorvastatin Calcium 40 MG TAB PO SCH (21:37)
[2020-02-16] MEDS: Tamsulosin HCl 0.4 MG CAP PO SCH (21:38)
--- NOTE | 2020-02-17 02:15 | PRG ---
DATE OF SERVICE: 02/16/2020 SUBJECTIVE: The patient was seen during evening rounds on the surgical floor, sleeping with CPAP mask, in no distress. It was noted by nursing staff that the patient had a stage II decubitus sacral ulcer as the patient has not been up from the bed. The patient did receive hemodialysis today; therefore, he did not participate with physical therapy. The patient continues to have some loose stools according to nursing staff. OBJECTIVE: VITAL SIGNS: Stable, afebrile. GENERAL: Elderly male resting comfortably, in no acute distress. ASSESSMENT: 1. Status post mechanical fall from standing. 2. Left distal periprosthetic femur fracture, status post repair. 3. Left ankle sprain. 4. History of end-stage renal disease, on dialysis. 5. History of obstructive sleep apnea. 6. Pacemaker. 7. Spinal stenosis. 8. Diabetes. 9. Gastric ulcers and gastric bypass surgery. PLAN: Continue supportive care and pain regimen. Continue dialysis per nephrology. Nursing staff has been instructed to place wedges on the patient and turn every 2 hours to relieve pressure on the patient's buttocks to prevent further irritation. We will encourage the patient to get up out of the bed and into the chair during the day. We will encourage the patient to work with Physical and Occupational Therapy. The patient is ready for discharge at this time. The patient is pending placement. Job ID: [id number]
[2020-02-17] MEDS: Loperamide HCl 2 MG CAP PO PRN ×4 (04:24→20:33)
[2020-02-17] MEDS: Acetaminophen 325 MG TAB PO SCH ×4 (05:47→23:55)
[2020-02-17] MEDS: Insulin Regular 300 UNITS/3 ML VIAL SC PRN ×4 (05:47→20:37)
[2020-02-17 06:29] LABS: Anion Gap 19 mmol/L (10-20); BUN (Urea Nitrogen) 39 mg/dL (8.4-25.7); Calc. Creatinine Clearance 27 mL/min (70-130); Calcium 7.5 mg/dL (7.8-10.44); Carbon Dioxide 24 mmol/L (23-31); Chloride 101 mmol/L (98-107); Estimated GFR-MDRD 14; Glucose 139 mg/dL (83-110); Magnesium 2.2 mg/dL (1.6-2.6); Phosphorus 3.4 mg/dL (2.3-4.7); Potassium 3.8 mmol/L (3.5-5.1); Sodium 140 mmol/L (136-145)
[2020-02-17 06:38] LABS: Band 9 % (5-11); Hemoglobin 7.2 g/dL (14.0-18.0); Hypochromia SLIGHT = 6-15 cells (100X) (0-5/hpf); Lymphocytes 2 % (21-51); MDiff Complete? YES; Mean Corpuscular HGB CONC 31.5 g/dL (32.0-36.0); Mean Corpuscular Hemoglobin 33.7 pg (27.0-31.0); Mean Platelet Volume 8.3 fL (7.4-10.4); Monocytes 1 % (0-10); Neutrophil 88 % (42-75); Platelet Count 133 thou/uL (130-400); Platelet Morphology Comment Appears Adequate; Polychromasia SLIGHT = 2-3 cells (100X) (0-2/hpf); RBC Distribution Width 15.9 % (11.5-14.5); Red Blood Cell (RBC) Count 2.15 mill/uL (4.70-6.10); White Blood Cell (WBC) Count 12.9 thou/uL (4.8-10.8)
[2020-02-17] MEDS ORDERED: Lidocaine 1% PF 5 ML VIAL FS PRN (09:00)
[2020-02-17] MEDS: Megestrol Acetate 800 MG/20 ML UDCUP PO SCH (09:11)
[2020-02-17] MEDS: Sevelamer Carbonate 800 MG TAB PO SCH ×3 (09:11→16:55)
[2020-02-17] MEDS: Folic Acid/Vit B Comp W-C PO SCH (09:11)
[2020-02-17] MEDS: Saccharomyces boulardii 250 MG CAP PO SCH (09:12)
[2020-02-17] MEDS: Thiamine 100 MG TAB PO SCH (09:12)
[2020-02-17] MEDS: Heparin 5,000 UNITS/ML VIAL SC SCH ×3 (09:12→20:35)
[2020-02-17] MEDS: predniSONE 5 MG TAB PO SCH (09:12)
[2020-02-17] MEDS: Ferrous Sulfate 325 MG TAB PO SCH ×2 (09:12→16:55)
[2020-02-17] MEDS: Gabapentin 100 MG CAP PO SCH ×2 (09:12→20:33)
[2020-02-17] MEDS: Midodrine HCl 5 MG TAB PO SCH ×3 (09:12→20:33)
[2020-02-17] MEDS: Finasteride 5 MG TAB PO SCH (09:12)
[2020-02-17] MEDS: Allopurinol 100 MG TAB PO SCH (09:12)
[2020-02-17] MEDS: Calcitriol 0.25 MCG CAP PO SCH (09:12)
[2020-02-17] MEDS: Ascorbic Acid 500 mg Chewable Tablet PO SCH ×2 (09:12→16:55)
[2020-02-17] MEDS: Insulin Glargine 4 UNITS in Pre-Filled Syringe 1 EACH SC SCH (09:12)
[2020-02-17] MEDS: Calcium Carbonate 500 MG TAB PO SCH ×3 (09:12→20:33)
[2020-02-17] MEDS: cefTRIAXone\\ROCEPHIN 2 GM VIAL IM SCH (09:39)
--- NOTE | 2020-02-17 13:36 | PRG ---
DATE OF SERVICE: 02/17/2020 SERVICE: Nephrology. SUBJECTIVE: This 74-year-old male is seen in followup for end-stage renal disease management as well as hyponatremia and hypotension. The patient continued to have orthostatic dizziness and headache. Had another episode of orthostatic dizziness earlier this morning, hence PT could not be done. Denied nausea, vomiting, abdominal pain, fever or chills. Last hemodialysis was yesterday, February 15. OBJECTIVE: VITAL SIGNS: Temperature 98.3, pulse 85, respiratory rate 16, SpO2 of 98% on room air, and blood pressure 110/61. GENERAL: Obese male, in no obvious distress. Afebrile. Anicteric. Acyanotic. NECK: Supple with no JVD. CARDIOVASCULAR: Regular rhythm and rate with normal heart sounds 1 and 2. RESPIRATORY: Fair air entry bilaterally with no obvious crackle or rhonchi or use of accessory muscles. GI: Obese, soft, nontender, nondistended with normal bowel sounds. PD catheter noted. MUSCULOSKELETAL: Mild edema of both upper extremities, especially on the left, as well as left lower extremity edema. Surgical dressing on the left lower extremity noted. Right upper arm AV fistula noted with some ecchymosis and bruising. FORGING PRESS SETTER UP: Conscious, alert, oriented x3 with appropriate mental status. Cranial nerves 2 through 12 are grossly intact. DIAGNOSTIC DATA: CBC showed WBC count of 12.9, hemoglobin of 7.2, and platelet of 133. Chemistry showed sodium of 140, potassium of 3.8, chloride of 101, CO2 of 24, BUN of 39, creatinine of 4.11, glucose of 139, calcium of 7.5, phosphorus of 3.4, and magnesium of 2.3. ASSESSMENT: 1. Orthostatic hypotension: This is limiting ambulation and physical therapy. The patient is currently on midodrine 10 mg p.o. t.i.d. We will add pyridostigmine 30 mg p.o. t.i.d. We will monitor all vitals. 2. End-stage renal disease. The patient was transitioned from PD to hemodialysis due to marked azotemia and uremic encephalopathy. Asterixis, tremors, and azotemia have markedly improved. Creatinine is down to 4.1 from 11 on admission. Last hemodialysis was yesterday. We will plan on dialyzing the patient tomorrow. 3. 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 Calcium is improving with supplementation. The patient also had vitamin D deficiency. Continue calcium supplementation. 4. Vitamin D deficiency: Continue vitamin D supplementation. 5. Hyperphosphatemia: Markedly improved with phosphate binder as well as improved hemodialysis. Phosphorus is down to 3.4 from peak of 11. 6. Anemia in chronic kidney disease: We will continue iron supplementation as well as erythrocyte stimulating agent. 7. History of hypertension: The patient is currently off antihypertensives except low-dose metoprolol due to orthostatic hypotension. PLAN: The patient can be discharged from Nephrology point of view once outpatient hemodialysis and placement can be arranged. Job ID: [id number]
[2020-02-17] MEDS: Pyridostigmine Bromide IR 60 MG TAB PO SCH ×2 (14:10→20:33)
--- NOTE | 2020-02-17 15:46 | PRG ---
DATE OF SERVICE: 02/17/2020 SUBJECTIVE: Patient remains on the surgical floor. He is status post ground level fall in which he sustained a left periprosthetic femur fracture which has undergone repair. The patient is a dialysis patient who underwent hemodialysis yesterday. He tolerated that well. He had no issues overnight. This morning, examination of his wound by Orthopedics noted some purulent discharge at the surgical site and he is currently planned on going to the operating room with them tomorrow. If the implanted device appears to be contaminated/infected, the patient will likely need long-term IV antibiotics and will need some sort of long-term access. This will be discussed with team tomorrow whether PIC is possible or if he will need some sort of other central access. The patient has been made n.p.o. for tonight at midnight. He has no complaints. He is tolerating a diet and only feels weak due to his orthostatic syncope. PHYSICAL EXAMINATION: VITAL SIGNS: Temperature is 98.5, heart rate 82, blood pressure 108/65, respirations 16, oxygen saturation is 96% on room air. GENERAL: The patient is resting comfortably in bed. He is awake, alert, oriented, conversant, appropriate. LUNGS: Breath sounds are clear bilaterally. HEART: Regular rate and rhythm. ABDOMEN: Soft, nontender with active bowel sounds. EXTREMITIES: Neurovascularly intact x4. His postop dressing has been replaced and appears clean, dry, and intact. LABORATORY DATA: White blood cell count 12.9, hemoglobin 7.2, hematocrit 23.0, platelets 133. Sodium 140, potassium 3.8, chloride 101, CO2 of 24, BUN 39, creatinine 4.11, glucose 139, magnesium 2.2, phosphorus 3.4. There are no radiographs reviewed this morning. ASSESSMENT/PLAN: 1. Status post fall from standing. 2. Status post open reduction and internal fixation of left distal periprosthetic femur fracture. 3. Left ankle sprain. 4. History of end-stage renal disease, on dialysis. 5. History of obstructive sleep apnea, pacemaker placement, spinal stenosis, diabetes, gastric ulcers and gastric bypass. PLAN: Plan will be to continue supportive care. N.p.o. after midnight. IV antibiotics have been started and we will discuss long-term access if needed postoperatively. The decision will be made intraoperatively in order to possibly do the procedure at that time. Again, this will be discussed in morning rounds with the team. Job ID: [id number]
[2020-02-17] MEDS: Atorvastatin Calcium 40 MG TAB PO SCH (20:33)
[2020-02-17] MEDS: Tamsulosin HCl 0.4 MG CAP PO SCH (20:33)
[2020-02-17] MEDS: Acetaminophen/Codeine 30-300mg Tablet PO PRN (20:34)
[2020-02-17] MEDS: Metamucil PACK PO SCH (20:35)
[2020-02-18 05:19] LABS: #Eosinphils 0.1 thou/uL (0.0-0.7); #Lymphocytes 1.1 thou/uL (1.20-3.40); #Monocytes 0.4 thou/uL (0.11-0.59); #Neutrophils 9.8 thou/uL (1.40-6.50); %Basophils 0.1 % (0.0-1.0); %Eosinophils 0.5 % (0.0-10.0); %Lymphocytes 9.9 % (21.0-51.0); %Monocytes 3.5 % (0.0-10.0); Mean Corpuscular HGB CONC 31.4 g/dL (32.0-36.0); Mean Corpuscular Hemoglobin 33.2 pg (27.0-31.0); Mean Platelet Volume 8.1 fL (7.4-10.4); Platelet Count 132 thou/uL (130-400); RBC Distribution Width 15.3 % (11.5-14.5); Red Blood Cell (RBC) Count 2.12 mill/uL (4.70-6.10); White Blood Cell (WBC) Count 11.3 thou/uL (4.8-10.8)
[2020-02-18 05:34] LABS: Anion Gap 18 mmol/L (10-20); BUN (Urea Nitrogen) 58 mg/dL (8.4-25.7); Calc. Creatinine Clearance 21 mL/min (70-130); Calcium 7.1 mg/dL (7.8-10.44); Carbon Dioxide 21 mmol/L (23-31); Chloride 102 mmol/L (98-107); Estimated GFR-MDRD 11; Glucose 120 mg/dL (83-110); Magnesium 2.2 mg/dL (1.6-2.6); Phosphorus 3.7 mg/dL (2.3-4.7); Potassium 3.7 mmol/L (3.5-5.1); Sodium 137 mmol/L (136-145)
[2020-02-18] MEDS: Acetaminophen 325 MG TAB PO SCH ×3 (05:49→18:49)
[2020-02-18] MEDS: Acetaminophen/Codeine 30-300mg Tablet PO PRN ×2 (05:49→20:21)
[2020-02-18] MEDS: Cyclobenzaprine 10 MG TAB PO PRN ×2 (11:38→20:20)
[2020-02-18] MEDS ORDERED: Rocuronium Bromide 10 MG/ML (10ML VIAL) ONE (11:44)
[2020-02-18] MEDS ORDERED: Ondansetron PF 4 MG/2 ML Vial ONE (11:44)
[2020-02-18] MEDS ORDERED: Succinylcholine Chloride 20 MG/ML 10 ml SYRINGE FS ONE (11:44)
[2020-02-18] MEDS ORDERED: Lidocaine 1% PF 5 ML VIAL ONE (11:44)
[2020-02-18] MEDS ORDERED: PROPOFOL 200 MG/20 ML VIAL ONE (11:44)
--- NOTE | 2020-02-18 13:57 | PRG ---
DATE OF SERVICE: 02/18/2020 SERVICE: Nephrology. SUBJECTIVE: A 74-year-old male seen in followup for end-stage renal disease management and hypertension. The patient was admitted after a fall, during which he sustained left lower extremity fracture and injury. Nephrology is seeing the patient for end-stage renal disease management. The patient later developed uremic encephalopathy, hence was transitioned from peritoneal dialysis to hemodialysis. Volume status, mental status change, and asterixis has improved. The patient was found to have purulent drainage from the surgical site on the left lower extremity and surgical washout is planned. Still having orthostatic hypotension, which is limiting the patient's ambulation and physical therapy. Denied fever, nausea, or vomiting. OBJECTIVE: VITAL SIGNS: Temperature 97.7, pulse 66, respiratory rate 16, SpO2 of 96% on room air, blood pressure is 127/70. GENERAL: Obese male, in no obvious distress. Fatigued, but afebrile and anicteric. HEENT: Normocephalic, atraumatic. Oral mucosa is moist. NECK: Supple with no JVD. CARDIOVASCULAR: Regular rhythm and rate with normal heart sounds 1 and 2. RESPIRATORY: Fair air entry bilaterally with some transmitted breath sounds. No obvious crackle or rhonchi or use of accessory muscles. GI: Full, soft, nontender with normal bowel sounds. PD catheter noted. MUSCULOSKELETAL: Dressing on distal thigh/knee and leg also noted. Mild edema of the left upper and lower extremity noted. No erythema appreciated. MEMORIAL COUNSELOR: Conscious, alert, oriented x3 with appropriate mental status. Cranial nerves 2 through 12 grossly intact. The patient moves all extremities, but weakly. No tremor or asterixis appreciated. DIAGNOSTIC DATA: CBC showed WBC count of 11.3, hemoglobin of 7.0, platelet of 132. Chemistry showed sodium 137, potassium 3.7, chloride 102, CO2 of 21, BUN 58, creatinine 5.20, glucose 120, calcium 7.1, phosphorus 3.7, magnesium 2.2. ASSESSMENT: 1. End-stage renal disease, on hemodialysis now due to inadequate treatment from peritoneal dialysis. We will dialyze the patient today and continue with Tuesday, Tuesday, and Tuesday schedule. 2. Volume overload: Due to trauma, hypoalbuminemia, and aggressive IV therapy. Improving steadily with UF with hemodialysis. 3. Orthostatic hypotension: Multifactorial related to hypoalbuminemia, autonomic neuropathy. Improving with medication. The patient is on midodrine and pyridostigmine. 4. History of hypertension, but currently off antihypertensives. 5. Presume surgical wound infection. 6. Acute anemia: Due to blood loss and acute illness. 7. Anemia of chronic kidney disease. 8. Uremic encephalopathy due to inadequate treatment via PD. BUN was 80s or 90s on presentation and creatinine was 11 on presentation. Currently, BUN is 58 and creatinine is 5.20. Improved markedly with transitioning to hemodialysis. 9. Hyperphosphatemia, markedly improved with phosphate binder and hemodialysis. Peak phosphorus was 11, currently 3.7. 10. Hypocalcemia due to vitamin D deficiency and poor oral intake. 11. Vitamin D deficiency, on supplementation. PLAN: 1. We will continue erythrocyte stimulating agent. We will also get ferritin with a view to treat him with iron if indicated. 2. We will continue phosphate binder, calcium supplementation, as well as vitamin D supplementation. 3. We will dialyze the patient today. 4. We will continue to hold antihypertensives. 5. Continue midodrine and pyridostigmine. Further treatment to follow depending on hospital course. We defer blood transfusion to the surgical team. DIALYSIS PROCEDURE NOTE: Seen at the dialysis unit for hemodialysis treatment. For 4 hours treatment with 3K bath. Blood flow 400, dialysate flow 800. UF as tolerated. The patient is tolerating treatment well. Access is right upper arm AV fistula. Hemodynamics are stable during treatment. Job ID: [id number]
[2020-02-18] MEDS ORDERED: Sodium Chloride 0.9% 10 ML ONE (15:16)
[2020-02-18] MEDS ORDERED: Fentanyl 100 MCG/2 ML VIAL ONE ×5 (15:18→18:22)
[2020-02-18] MEDS ORDERED: Neomycin-Polymyxin 1 ML AMP ONE (15:37)
--- NOTE | 2020-02-18 15:42 | RAD ---
EXAM: Single view of the chest HISTORY: Status post central line placement COMPARISON: 01/29/2020 FINDINGS: Single view of the chest shows a normal sized cardiomediastinal silhouette. The pacemaker is unchanged in position. A right IJ central venous catheter seen with its tip in the superior vena cava. No pneumothorax is seen. There is no evidence of consolidation, mass, or pleural effusion. The bones are unremarkable. IMPRESSION: Status post central line placement without evidence of complication.
[2020-02-18] MEDS ORDERED: cefTRIAXone\\ROCEPHIN 2 GM VIAL ONE (16:01)
[2020-02-18] MEDS ORDERED: Sodium Chloride 0.9% 100 ML ONE (16:02)
[2020-02-18] MEDS: Ferrous Sulfate 325 MG TAB PO SCH ×2 (16:44→17:59)
[2020-02-18] MEDS: Ascorbic Acid 500 mg Chewable Tablet PO SCH ×2 (16:44→17:59)
[2020-02-18] MEDS: Insulin Glargine 4 UNITS in Pre-Filled Syringe 1 EACH SC SCH (16:45)
[2020-02-18] MEDS: Heparin 5,000 UNITS/ML VIAL SC SCH ×3 (16:45→20:22)
[2020-02-18] MEDS: Sevelamer Carbonate 800 MG TAB PO SCH ×2 (16:45→17:59)
[2020-02-18] MEDS: Gabapentin 100 MG CAP PO SCH ×2 (16:45→20:20)
[2020-02-18] MEDS: Midodrine HCl 5 MG TAB PO SCH ×3 (16:46→20:22)
[2020-02-18] MEDS: Saccharomyces boulardii 250 MG CAP PO SCH (16:46)
[2020-02-18] MEDS: Pyridostigmine Bromide IR 60 MG TAB PO SCH ×3 (16:46→20:22)
[2020-02-18] MEDS: Thiamine 100 MG TAB PO SCH (16:46)
[2020-02-18] MEDS: Metamucil PACK PO SCH ×2 (16:46→20:20)
[2020-02-18] MEDS: Calcium Carbonate 500 MG TAB PO SCH ×3 (16:47→20:20)
[2020-02-18] MEDS: Folic Acid/Vit B Comp W-C PO SCH (16:48)
[2020-02-18] MEDS: Allopurinol 100 MG TAB PO SCH (16:48)
[2020-02-18] MEDS: Calcitriol 0.25 MCG CAP PO SCH (16:48)
[2020-02-18] MEDS: Megestrol Acetate 800 MG/20 ML UDCUP PO SCH (16:48)
[2020-02-18] MEDS: Finasteride 5 MG TAB PO SCH (16:48)
[2020-02-18] MEDS ORDERED: Tobramycin Sulfate 1.2 GM VIAL ONE (16:58)
[2020-02-18] MEDS ORDERED: Tobramycin/dex OPTH 2.5 ML BOT ONE (16:58)
[2020-02-18] MEDS ORDERED: Tobramycin/Dexamethasone Ophth Oint 3.5 GM TUBE ONE (16:58)
[2020-02-18] MEDS ORDERED: Fentanyl 100 MCG/2 ML VIAL SLOW IVP PRN (17:52)
[2020-02-18] MEDS ORDERED: HYDROmorphone 2 MG/ML VIAL ONE (18:31)
[2020-02-18] MEDS ORDERED: Ondansetron HCl/PF 4 MG/2 ML Vial IVP PRN (19:02)
[2020-02-18] MEDS ORDERED: HYDROmorphone 2 MG/ML VIAL SLOW IVP PRN (19:02)
[2020-02-18] MEDS ORDERED: Promethazine HCl 25 MG/ML VIAL IM PRN (19:02)
[2020-02-18] MEDS ORDERED: Promethazine HCl 25 MG/ML VIAL SLOW IVP PRN (19:02)
[2020-02-18] MEDS: cefTRIAXone\\ROCEPHIN 2 GM VIAL IM SCH (19:07)
[2020-02-18 19:34] LABS: Hemoglobin 6.6 g/dL (14.0-18.0); Platelet Count 139 thou/uL (130-400)
[2020-02-18] MEDS: Loperamide HCl 2 MG CAP PO PRN (20:20)
[2020-02-18] MEDS: Tamsulosin HCl 0.4 MG CAP PO SCH (20:20)
[2020-02-18] MEDS: Atorvastatin Calcium 40 MG TAB PO SCH (20:20)
--- NOTE | 2020-02-18 22:39 | PRG ---
DATE OF SERVICE: 02/18/2020 SUBJECTIVE: The patient is currently on the surgical floor. Today, he underwent his scheduled dialysis and then went to the operating room, underwent irrigation and debridement of postop infection, which he tolerated well. Repeat labs after his surgery showed his hemoglobin was 6.6, and he is currently being transfused 1 unit of packed red blood cells. He is tolerating a diet and his pain is controlled. We have asked Dr. Cruz to evaluate the patient for treatment of his complex surgical wound infection. PHYSICAL EXAMINATION: VITAL SIGNS: Temperature is 98.1, heart rate 83, blood pressure 100/58, respirations 18, oxygen saturation 100% on room air. GENERAL: The patient is resting comfortably in bed. He is slightly drowsy, but responds appropriately. He interacts with his spouse appropriately. HEENT: Unremarkable. LUNGS: Clear to auscultation bilaterally. HEART: Regular rate and rhythm. ABDOMEN: Soft, flat, nontender with active bowel sounds. EXTREMITIES: Neurovascularly intact x4. Postop dressing is clean, dry, and intact. LABORATORY FINDINGS: Postoperatively, hemoglobin 6.6, hematocrit 20.9. There are no radiographs reviewed this morning. ASSESSMENT: 1. Status post fall from standing. 2. Status post open reduction and internal fixation of left distal periprosthetic femur fracture. 3. Status post irrigation and debridement of postsurgical wound infection. 4. Left ankle sprain, improved. 5. History of end-stage renal disease, on hemodialysis. 6. History of obstructive sleep apnea, pacemaker placement, spinal stenosis, diabetes, and gastric ulcer disease. 7. Acute blood loss anemia complicated by chronic anemia of disease. PLAN: Plan will be to continue supportive care. Encourage physical and occupational therapy. Await culture results. Antibiotics per Infectious Disease. The patient will likely require long-term IV access and we will continue to work toward placement. Job ID: [id number]
[2020-02-19] MEDS: Acetaminophen 325 MG TAB PO SCH ×4 (00:05→17:22)
[2020-02-19] MEDS: CEFAZOLIN 2 GM in Premix Bag 1 BAG IVPB SCH ×2 (00:42→09:22)
--- NOTE | 2020-02-19 00:50 | OP ---
DATE OF PROCEDURE: 02/18/2020 OPERATION: Irrigation and debridement of left thigh wound infection with history of distal femur fracture. IMPLANTS: Fifteen cement beads with antibiotics including tobramycin and 2 g of vancomycin were inserted into the wound defect. INDICATIONS: Mr. Laguerre is a 74-year-old male who has fallen and fractured his left femur. He was treated with open reduction and internal fixation approximately one month ago. He initially has done well. However, he has developed wound drainage as well as a persistently elevated white blood cell count. Once wound drainage was identified, he was cultured. He has been found to have gram-negative rods. He has been indicated for irrigation and debridement of his wound with the goal of eradication of infection to allow healing. Risks have been reviewed in detail. He is at risk for further wound complication. He has a very poor healing potential given his dialysis and other medical problems. He is at risk for complications such as nonunion, need for further surgery, hardware removal, or even amputation. DESCRIPTION OF PROCEDURE: Mr. Laguerre was identified in the preoperative holding area. His correct extremity was marked. He was carried to the operating room. He was positioned supine. General anesthesia was induced. A multidisciplinary time-out was performed. The left lower extremity was prepped and draped in sterile fashion. We began the procedure with incision over the lateral thigh. We encountered gross purulent material. This was cultured. There was a deep infection that tracked down through the fascia to the plate and bony level. This extended over the anterior femur into the defect of the fracture as well. We evacuated the hematoma and purulent material. We used a curette as well as knife to sharply debride the tissues. We used pulse lavage for 5 L of irrigation. We also used a Betadine irrigation. We performed a final sharp debridement. At this point, we then proceeded to place 15 antibiotic beads after making these on the back table. The beads were mixed with 2 g of vancomycin and tobramycin. At this point, the patient was closed loosely. The fascia was closed with 0 PDS suture followed by 2-0 nylon for the skin. A sterile dressing was applied to the leg. The patient was taken to the recovery room in good condition. Job ID: [id number]
[2020-02-19] MEDS: EPOETIN ALFA-EPBX (ESRD) 10,000 UNIT/ML VIAL SC SCH (04:53)
[2020-02-19] MEDS: Acetaminophen/Codeine 30-300mg Tablet PO PRN ×2 (04:54→20:22)
[2020-02-19 05:41] LABS: Anion Gap 13 mmol/L (10-20); BUN (Urea Nitrogen) 42 mg/dL (8.4-25.7); Calc. Creatinine Clearance 25 mL/min (70-130); Calcium 6.8 mg/dL (7.8-10.44); Carbon Dioxide 28 mmol/L (23-31); Chloride 101 mmol/L (98-107); Estimated GFR-MDRD 13; Glucose 213 mg/dL (83-110); Phosphorus 3.7 mg/dL (2.3-4.7); Potassium 3.5 mmol/L (3.5-5.1); Sodium 138 mmol/L (136-145)
[2020-02-19 05:56] LABS: Band 2 % (5-11); Eosinophils 2 % (0-10); Hemoglobin 6.4 g/dL (14.0-18.0); Hypochromia SLIGHT = 6-15 cells (100X) (0-5/hpf); Lymphocytes 3 % (21-51); MDiff Complete? YES; Mean Corpuscular HGB CONC 31.6 g/dL (32.0-36.0); Mean Corpuscular Hemoglobin 32.5 pg (27.0-31.0); Mean Platelet Volume 7.9 fL (7.4-10.4); Monocytes 7 % (0-10); Neutrophil 86 % (42-75); Platelet Count 131 thou/uL (130-400); Platelet Morphology Comment Appears Adequate; RBC Distribution Width 16.8 % (11.5-14.5); Red Blood Cell (RBC) Count 1.97 mill/uL (4.70-6.10); White Blood Cell (WBC) Count 8.8 thou/uL (4.8-10.8)
[2020-02-19] MEDS: Insulin Regular 300 UNITS/3 ML VIAL SC PRN ×2 (06:02→12:16)
[2020-02-19] MEDS: Insulin Glargine 4 UNITS in Pre-Filled Syringe 1 EACH SC SCH (09:20)
[2020-02-19] MEDS: Metamucil PACK PO SCH ×2 (09:21→20:21)
[2020-02-19] MEDS: Heparin 5,000 UNITS/ML VIAL SC SCH ×3 (09:21→20:21)
[2020-02-19] MEDS: Megestrol Acetate 800 MG/20 ML UDCUP PO SCH (09:21)
[2020-02-19] MEDS: Allopurinol 100 MG TAB PO SCH (09:23)
[2020-02-19] MEDS: Saccharomyces boulardii 250 MG CAP PO SCH (09:23)
[2020-02-19] MEDS: Pyridostigmine Bromide IR 60 MG TAB PO SCH ×3 (09:23→20:21)
[2020-02-19] MEDS: Folic Acid/Vit B Comp W-C PO SCH (09:23)
[2020-02-19] MEDS: Finasteride 5 MG TAB PO SCH (09:23)
[2020-02-19] MEDS: Midodrine HCl 5 MG TAB PO SCH ×3 (09:24→20:21)
[2020-02-19] MEDS: Calcium Carbonate 500 MG TAB PO SCH ×3 (09:24→20:21)
[2020-02-19] MEDS: Ascorbic Acid 500 mg Chewable Tablet PO SCH ×2 (09:24→17:22)
[2020-02-19] MEDS: Calcitriol 0.25 MCG CAP PO SCH (09:24)
[2020-02-19] MEDS: Ferrous Sulfate 325 MG TAB PO SCH ×2 (09:24→17:22)
[2020-02-19] MEDS: Gabapentin 100 MG CAP PO SCH ×2 (09:25→20:21)
[2020-02-19] MEDS: Thiamine 100 MG TAB PO SCH (09:25)
[2020-02-19] MEDS ORDERED: Ketorolac Tromethamine 30 MG/ML VIAL IVP SCH (09:30)
[2020-02-19] MEDS: Sevelamer Carbonate 800 MG TAB PO SCH ×3 (09:33→17:22)
--- NOTE | 2020-02-19 10:01 | PRG ---
DATE OF SERVICE: 02/19/2020 SERVICE: Nephrology. SUBJECTIVE: A 74-year-old male seen in followup for end-stage renal disease management. The patient had debridement of left surgical wound as well as debridement yesterday. Had transfusion of 1 unit of packed red blood cells yesterday for acute blood loss. The patient complains of pain especially at the surgical site. The patient on peritoneal dialysis regularly, was admitted after a fall sustaining fracture of left lower extremity, for which he had open reduction and internal fixation several weeks ago. Had developed tremors and mental status change consistent with uremic encephalopathy due to elevated BUN and creatinine despite prolonged peritoneal dialysis, hence he was transitioned to hemodialysis. Last treatment (hemodialysis) was yesterday, February 17. Denied nausea or vomiting or fever. OBJECTIVE: VITAL SIGNS: Temperature 98.0, pulse 68, respiratory rate 14, SpO2 of 100% on room air, blood pressure is 108/57. GENERAL: Obese male, acutely ill, in [id number] painful distress. Afebrile. Anicteric. Acyanotic. HEENT: Normocephalic, atraumatic. Oral mucosa is moist. CARDIOVASCULAR: Regular rhythm and rate. Normal heart sounds one and two. RESPIRATORY: Fair air entry bilaterally. Few transmitted breath sounds. No obvious rhonchi or use of accessory muscles appreciated. GASTROINTESTINAL: Obese, soft, nontender, nondistended with normal bowel sounds. PD catheter noted. EXTREMITIES: Left distal thigh and foot covered with dressing. Some edema of the left lower extremity is noted as well as that of the left upper extremity. CHEST: Left lateral chest, upper chest scarred area with some surrounding erythema noted. Newly inserted right IJ triple-lumen noted. Right upper arm AV fistula with good thrill noted as well. CENTRAL NERVOUS SYSTEM: Conscious and alert, oriented x3 with appropriate mental status. Cranial nerves 2 through 12 are grossly intact. No tremor or asterixis noted. DIAGNOSTIC DATA: CBC showed WBC count of 8.8, hemoglobin of 6.4, hematocrit of 20.2, platelets of 131. Chemistry showed sodium 138, potassium 3.5, chloride 101, CO2 of 21, BUN 42, creatinine 4.37, glucose 213, calcium 6.8, phosphorus 3.7, magnesium 2.0. ASSESSMENT AND PLAN: 1. Hypotension: Due to acute infection as well as volume loss related to acute blood loss. Contribution of adrenal insufficiency cannot be ruled out. The patient, who is normally hypotensive on several antihypertensives, is currently running low with systolic blood pressures in 80s to 100. We will give albumin if BP remains low after blood transfusion with normal saline. We will also continue midodrine. 2. Orthostatic hypotension: Continue midodrine and pyridostigmine. 3. End-stage renal disease, now on hemodialysis. Last hemodialysis was yesterday. We will plan on dialyzing the patient tomorrow. 4. Hyperphosphatemia: Markedly improved. Phosphorus is 3.7 currently. We will continue phosphate binder. 5. Hypocalcemia: Due to vitamin D deficiency as well as new onset hungry bone syndrome related to vitamin D supplementation. We will continue calcium supplementation. 6. Vitamin D deficiency: Continue vitamin D supplementation. 7. Acute pain: Related to surgery. We will give a dose of Toradol. The patient is end-stage and makes no urine. We will defer further pain management to Surgery Team. 8. Acute blood loss anemia: Related to surgery. The patient received 1 unit of packed red blood cells yesterday and is receiving another currently. We will continue to monitor hemoglobin. We defer further transfusion to Surgical Team. 9. Chronic anemia due to anemia of chronic kidney disease. We will continue erythrocyte-stimulating agent. 10. Surgical wound infection as well as pre-prosthetic infection. Antibiotics as per primary attending. Infectious Diseases has been consulted. Need to adjust antibiotics renally as patient is on hemodialysis. 11. Further treatment to follow depending on hospital course. Job ID: [id number]
[2020-02-19 15:34] LABS: Hemoglobin 6.9 g/dL (14.0-18.0)
[2020-02-19] MEDS: Loperamide HCl 2 MG CAP PO PRN (20:21)
[2020-02-19] MEDS: Tamsulosin HCl 0.4 MG CAP PO SCH (20:21)
[2020-02-19] MEDS: Atorvastatin Calcium 40 MG TAB PO SCH (20:21)
--- NOTE | 2020-02-19 20:39 | CON ---
DATE OF CONSULTATION: 02/19/2020 REASON FOR CONSULTATION: Left femur fracture with ORIF infection including involvement of the previous left TKR. HISTORY OF PRESENT ILLNESS: A 74-year-old who has a history of type 2 diabetes and end-stage renal disease on peritoneal dialysis and cardiomyopathy with pacemaker , who was in a gasoline station and fell and sustained a fracture of the distal femur, left side. He was seen by Dr. Hernandez on January 29 and underwent internal fixation by Dr. Hernandez with a 16 hole locking plate. On 02/03, the patient had a right femoral central line placed. On 02/17, the patient had developed wound drainage and leukocytosis, so he was brought in for irrigation on 02/17. Dr. Hernandez again performed the procedure yesterday. An incision over the lateral thigh was carried out. There was gross purulent material. There was a deep infection that tracked down through the fascia to the plate and bony level and extended over the anterior femur into the defect of the fracture as well. Antibiotic beads were placed. Fascia was closed. I do not see any procedures related to the joint itself. The patient stated that he had joint washed, washed out, but this is not clear to me. The samples that yielded organisms include a sample labeled joint left leg, this is dated from the . Currently, Mr. Laguerre is in the bed. His left lower extremity has a splint and dressing and he has a right triple-lumen catheter in the right IJ position. He also has a peritoneal dialysis catheter, which has not been used while he is in the hospital instead he has been dialyzed with the previously available AV fistula in the right upper extremity. Currently, he denies any headaches. No visual symptoms, sore throat, odynophagia, dysphagia. No cough, sputum production, or chest pain. No dyspnea. No abdominal pain. He does not have urine output. He has no back pain. PAST MEDICAL HISTORY: Includes type 2 diabetes, end-stage renal disease on peritoneal dialysis, cardiomyopathy with a pacemaker placed 3 years ago elsewhere, I believe in [place]. PAST SURGICAL HISTORY: Includes cholecystectomy and bilateral knee replacements. SOCIAL HISTORY: He is a [place] . 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 He is getting ready to move to [place] with his . He quit smoking more than 10 years ago. ALLERGIES: NONE. CURRENT MEDICATIONS: Include: 1. DuoNeb. 2. Zyloprim. 3. Vitamin C. 4. Lipitor. 5. Rocaltrol. 6. Os-Angel. 7. Dextrose. 8. Sublimaze. 9. Drisdol. 10. Feosol. 11. Proscar. 12. Neurontin. 13. Heparin. 14. Insulin. 15. Loperamide. 16. Megace. 17. Toprol. 18. ProAmatine. 19. Protonix. 20. Mestinon. 21. Renvela. 22. Thiamine. 23. He has had Rocephin, cefazolin given yesterday. 24. He has had vancomycin as well. PHYSICAL EXAMINATION: VITAL SIGNS: He has been afebrile through the hospital stay and he has a peritoneal dialysis catheter, normal-appearing exit site and a right triple-lumen catheter in the IJ position. He has a lot of bruising in the right arm from the dialysis access for hemodialysis while in the hospital. He also has this area of necrotic eschar localized right next to the pacemaker healed incision in the left anterior chest area. This necrotic eschar area measures about 9 cm x 2.5. There is moderate erythema surrounding this area, which is precisely lateral to the pacemaker healed incision site. This area is not tender to palpation. There is no drainage noticeable. The patient has no lymphadenopathy. HEENT: Ocular movements are conjugate. Oral cavity, still quite a few teeth in place with some decay and gum disease. NECK: Supple. No jugular venous distention. LUNGS: Symmetric air entry. No crackles or wheezing. S1, S2 regular rate. No S3 or S4. ABDOMEN: Soft, not distended or tender. No ascites. No bladder distention. EXTREMITIES: No obvious joint inflammatory activity noted. I could not examine and evaluate the left TKR very well. Pulses are 1+ in dorsalis pedis. He has trace edema in lower extremities. Plantar responses are flexor. NEUROLOGIC: He is awake and alert. His cognitive function is perfectly fine to recollection, calculation, speech, orientation. LABORATORY DATA: White cell count 17.8 and is down to 8.8, hemoglobin was 7.7, now 6.4. MCV is 103 and he does have microcytosis. Platelet count 123 and now is 131. Neutrophils were 73, now is 86%. PH 7.4, pCO2 28, pO2 95. His electrolytes are expected as for his chronic renal failure. His phosphorus is elevated at 6.8 and albumin is 2.4. His liver profile was normal except for alkaline phosphatase of 212, which is probably bone origin. Albumin 2.7. Troponin 0.056 on arrival. Cortisol 12.6 and TSH was 1.91. White cell count has been discussed above. Hepatitis surface antigen nonreactive. Microbiology, he does have Enterobacter cloacae and a 2nd gram-negative don. The Enterobacter has a very broad susceptibility profile except for cefoxitin. The 2nd gram-negative has not yet been susceptibility tested. There is a similar gram-negative don, I do not know which one of them the next day sample and further identification susceptibility testing is pending. C diff was negative. IMAGING STUDIES: We have a chest x-ray with no evidence of complication from central line placement. ASSESSMENT: 1. Type 2 diabetes. 2. End-stage renal disease, on peritoneal dialysis. 3. Cardiomyopathy with pacemaker. 4. Necrotic eschar right next to the pacemaker site with surrounding erythema of uncertain etiology. The patient was not aware of this lesion when I mentioned to him. 5. Fall with fracture of the left distal femur, which required open reduction internal fixation at the beginning of this month and now patient has a postop infection with 2 different gram negatives. It is not clear, if the joint is involved. It appears that it is, but I do not see an arthrocentesis note here in the chart. Anyways, will need to clarify this issue with the joint because, if it is involved and he would need to have it addressed. Typical fashion would be removal of the joint, but he is probably not eligible for that because of the fracture right above the joint, so maybe just a washout and antimicrobials, waiting for the fracture to heal to heal. The treatment will involve placement of a PICC line and then long-term treatment with antimicrobial therapy. Enterobacter species are unfortunately known to carry inducible beta lactamase and the use of cephalosporins are usually associated with development of clinical and laboratory failure in the middle of treatment due to the induction of the production of beta lactamase by the bacteria, so we are going to have to use a carbapenem probably ertapenem since it can be given once daily, but before we make the final decision, we will have to wait for the second organism to be susceptibility tested. 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 This will need to be dealt with. I do not know what the relationship this has with the pacer pockets. It does not appear that he has any, at least debridement of this necrotic eschar to see what is under that site. Job ID: [id number] MTDD
--- NOTE | 2020-02-19 20:46 | PRG ---
DATE OF SERVICE: 02/19/2020 SUBJECTIVE: The patient remains on the surgical floor. He is status post a ground level fall in which he sustained a left distal periprosthetic femur fracture, which he underwent surgery for. He has had delayed placement due to insurance companies and family desires. He has recently developed postop wound infection, went to the operating room yesterday for irrigation and debridement. The patient is also on dialysis. The patient today continued having some anemia and was transfused initially 1 unit of blood. His followup hemoglobin was 6.9 and he received another unit of packed red blood cells. Otherwise, the patient is doing well, but he is slow to progress with physical therapy due to receiving blood products and tomorrow most likely will be complicated by his dialysis. He reports his pain is controlled and he is tolerating a diet. At this time, the patient is currently scheduled to return to the operating room later this week. PHYSICAL EXAMINATION: VITAL SIGNS: Temperature is 98.0, heart rate 68, blood pressure 108/57, respirations 14, oxygen saturation 100% on room air. GENERAL: The patient is resting comfortably in bed. He is awake, alert, conversant, and appropriate. HEENT: Unremarkable. LUNGS: Clear to auscultation bilaterally. HEART: Regular rate and rhythm. ABDOMEN: Soft, flat, nontender with active bowel sounds. EXTREMITIES: Neurovascularly intact x4. Postop dressing is clean, dry, and intact. LABORATORY FINDINGS: White blood cell count 8.8, hemoglobin 6.4, initially this morning hematocrit 20.2, platelets 131. Sodium 138, potassium 3.5, chloride 101, CO2 of 28, BUN 42, creatinine 4.37, glucose 213, magnesium 2.0, phosphorus 3.7. There are no radiographs reviewed this morning. ASSESSMENT: 1. Status post fall from standing. 2. Status post open reduction and internal fixation of left distal periprosthetic femur fracture. 3. Status post irrigation and debridement of postsurgical wound infection. 4. Left ankle sprain, improved. 5. History of end-stage renal disease, on hemodialysis. 6. History of obstructive sleep apnea, pacemaker placement, spinal stenosis, diabetes, and gastric ulcer disease. 7. Acute blood loss anemia complicated by chronic anemia of disease. PLAN: Plan will be to continue supportive care. Repeat labs in the morning. Continue to work with Physical and Occupational Therapy and Case Management on placement. The patient is scheduled to be seen by Dr. Cruz for IV antibiotic recommendations. Job ID: [id number]
[2020-02-20] MEDS: Acetaminophen 325 MG TAB PO SCH ×3 (00:59→12:52)
[2020-02-20] MEDS: Acetaminophen/Codeine 30-300mg Tablet PO PRN ×2 (06:03→15:36)
[2020-02-20] MEDS ORDERED: Meropenem 500 MG in Sodium Chloride 0.9% 100 ML IVPB SCH (09:00)
[2020-02-20 09:54] LABS: Hemoglobin 8.2 g/dL (14.0-18.0)
[2020-02-20] MEDS: Ascorbic Acid 500 mg Chewable Tablet PO SCH ×2 (11:07→17:42)
[2020-02-20] MEDS: Pyridostigmine Bromide IR 60 MG TAB PO SCH ×3 (11:07→20:33)
[2020-02-20] MEDS: Midodrine HCl 5 MG TAB PO SCH ×3 (11:07→20:33)
[2020-02-20] MEDS: Heparin 5,000 UNITS/ML VIAL SC SCH ×3 (11:07→20:33)
[2020-02-20] MEDS: Sevelamer Carbonate 800 MG TAB PO SCH ×3 (11:07→17:42)
[2020-02-20] MEDS: Ferrous Sulfate 325 MG TAB PO SCH ×2 (11:07→17:42)
[2020-02-20] MEDS: Calcium Carbonate 500 MG TAB PO SCH ×3 (11:07→20:33)
[2020-02-20] MEDS: Calcitriol 0.25 MCG CAP PO SCH (12:50)
[2020-02-20] MEDS: Megestrol Acetate 800 MG/20 ML UDCUP PO SCH (12:50)
[2020-02-20] MEDS: Folic Acid/Vit B Comp W-C PO SCH (12:51)
[2020-02-20] MEDS: Finasteride 5 MG TAB PO SCH (12:51)
[2020-02-20] MEDS: Thiamine 100 MG TAB PO SCH (12:51)
[2020-02-20] MEDS: Saccharomyces boulardii 250 MG CAP PO SCH (12:51)
[2020-02-20] MEDS: Gabapentin 100 MG CAP PO SCH ×2 (12:51→20:33)
[2020-02-20] MEDS: Metamucil PACK PO SCH ×2 (12:52→20:34)
[2020-02-20] MEDS: Insulin Glargine 6 UNITS in Pre-Filled Syringe 1 EACH SC SCH (12:52)
[2020-02-20] MEDS: Allopurinol 100 MG TAB PO SCH (12:53)
[2020-02-20] MEDS: EPOETIN ALFA-EPBX (ESRD) 10,000 UNIT/ML VIAL SC SCH (12:53)
[2020-02-20] MEDS: Loperamide HCl 2 MG CAP PO PRN ×2 (12:54→20:33)
[2020-02-20] MEDS: traMADol HCl 50 MG TAB PO PRN (14:12)
--- NOTE | 2020-02-20 14:21 | PRG ---
DATE OF SERVICE: 02/20/2020 SUBJECTIVE: A 74-year-old male seen in followup for management of end-stage renal disease. Denied any new complaint. Oral intake has improved. The patient is complaining of small quantity of food. OBJECTIVE: VITAL SIGNS: Temperature 98.2, pulse 82, respiratory rate 20, SpO2 of 100% on room air, blood pressure is 131/66. GENERAL: Male patient, in no obvious distress. Afebrile. Anicteric. Acyanotic. HEENT: Normocephalic, atraumatic. Oral mucosa is moist. CARDIOVASCULAR: Regular rhythm and rate with normal heart sounds 1 and 2. RESPIRATORY: Fair air entry bilaterally with no obvious crackle or rhonchi or use of accessory muscles. GI: Obese, soft, nontender, nondistended with normal bowel sounds. PD catheter noted. MUSCULOSKELETAL: Right IJ triple-lumen catheter noted as well as right upper arm AV fistula with good bruit. Left upper chest eschar with some minimal surrounding erythema noted. Left upper and lower extremity edema as well as left lower extremity surgical dressings noted. ASSEMBLER: Conscious, alert, and oriented x3 with appropriate mental status. Cranial nerves 2 through 12 are grossly intact. DIAGNOSTIC DATA: Hemoglobin and hematocrit showed hemoglobin of 8.2 and hematocrit of 25.5. ASSESSMENT: 1. End-stage renal disease, on dialysis. The patient is not on hemodialysis. 2. Uremic encephalopathy, resolved. 3. Hyperphosphatemia, resolved. 4. Hypocalcemia, improved. 5. Vitamin D deficiency. 6. Anemia in chronic kidney disease. 7. Orthostatic hypotension, on treatment. 8. History of hypertension, but currently not on antihypertensives. 9. Physical deconditioning. 10. Acute blood loss anemia, status post blood transfusion. The patient has received a total of 5 units of packed red blood cells since admission. PLAN: 1. We will dialyze the patient today for 4 hours with 3K bath and UF as tolerated. 2. We will continue midodrine and pyridostigmine for orthostatic hypotension. 3. We will monitor orthostatic vitals. 4. Continue to hold antihypertensives. 5. Continue erythrocyte stimulating agent, phosphate binder, and vitamin D supplementation. 6. Antibiotics as per Infectious Disease for infected surgical wounds with periprosthetic infection. Further treatment to follow depending on hospital course. Job ID: [id number]
[2020-02-20] MEDS ORDERED: Morphine 2 MG/ML SYRINGE SLOW IVP SCH (14:45)
[2020-02-20 14:47] LABS: Anion Gap 16 mmol/L (10-20); BUN (Urea Nitrogen) 23 mg/dL (8.4-25.7); Calc. Creatinine Clearance 33 mL/min (70-130); Calcium 7.4 mg/dL (7.8-10.44); Carbon Dioxide 25 mmol/L (23-31); Chloride 99 mmol/L (98-107); Estimated GFR-MDRD 18; Glucose 193 mg/dL (83-110); Potassium 3.7 mmol/L (3.5-5.1); Sodium 136 mmol/L (136-145)
--- NOTE | 2020-02-20 17:31 | ULT ---
LEFT CHEST ULTRASOUND: 02/20/20 HISTORY: Induration below left pacemaker. Evaluation for infection. There are some edema change within the soft tissue but no abscess collection identified. IMPRESSION: No signs of abscess. POS: MICHELLE
[2020-02-20] MEDS: Insulin Regular 300 UNITS/3 ML VIAL SC PRN (17:42)
[2020-02-20] MEDS: Acetaminophen 500 MG TAB PO SCH (17:42)
--- NOTE | 2020-02-20 19:20 | CON ---
DATE OF CONSULTATION: 02/20/2020 REASON FOR CONSULTATION: Possible pacemaker infection with need for extraction. HISTORY OF PRESENT ILLNESS: Mr. Laguerre is a 74-year-old gentleman, who presented to the hospital initially following a traumatic fall at a gas station, where he sustaining a fracture of the left distal femur. He underwent internal fixation with Dr. Hernandez on January 29. He developed wound drainage and leukocytosis and underwent irrigation on 02/17. He has continued to struggle with infection from the surgical site and Infectious Disease was brought on the case. He is currently on meropenem. He has a history of syncope and collapse with symptomatic bradycardia and had a pacemaker implant approximately three years ago, reportedly in [place] by a supervisor grower at [facility]. This is a [employer] dual- chamber pacemaker. Overlying the pacemaker incision, there has been noticed an area of eschar with localized erythema and induration, prompting EP consultation for possible device infection, which may require extraction. Mr. Laguerre is currently feeling fairly well. He denies any significant complaints other than some ongoing pain and discomfort of his left leg from his surgeries. He regularly is on dialysis for end-stage renal disease on Tuesday, Tuesday, and Tuesday and also does peritoneal dialysis at home. He also has type 2 diabetes. REVIEW OF SYSTEMS: A 12-point review of systems is unremarkable except that listed above in HPI. PAST MEDICAL HISTORY: 1. Type 2 diabetes. 2. End-stage renal disease on peritoneal dialysis and also hemodialysis Tuesday, Tuesday, and Tuesday. 3. Syncope and collapse. 4. Symptomatic bradycardia. 5. Dual-chamber pacemaker, [employer] implanted approximately in 2016. 6. Bilateral knee replacements. 7. Left femoral fracture status post internal fixation. 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 Recently moved to [facility] with his to be closer to his children. Quit smoking over 10 years ago. Denies alcohol or illicit drug use. ALLERGIES: NONE. CURRENT MEDICATION LIST: Includes; 1. Os-Angel t.i.d. 2. Tylenol. 3. Vitamin C b.i.d. 4. Ultram p.r.n. 5. Heparin 5000 units t.i.d. 6. Flexeril as needed. 7. Proscar 5 mg daily. 8. Megace 40 mg daily. 9. Lipitor 40 mg at bedtime. 10. Protonix 40 mg b.i.d. 11. Zofran p.r.n. 12. Feosol 325 mg daily. 13. Mestinon 30 mg p.o. t.i.d. 14. DuoNeb as needed. 15. Florastor 250 mg daily. 16. D50. 17. Metoprolol 12.5 mg daily. 18. Meropenem 500 mg. 19. Zyloprim 100 mg daily. 20. Thiamine 100 mg daily. 21. Neurontin 100 mg b.i.d. 22. Epoetin 10,000 units Tuesday, Tuesday, and Tuesday. 23. Hydralazine p.r.n. 24. Midodrine 10 mg t.i.d. 25. Drisdol weekly 1.25 mg. 26. Humulin-R insulin as directed and Lantus as directed. 27. Tamsulosin at bedtime. 28. Calcitriol daily. 29. Metamucil b.i.d. 30. Nephro-Brannon daily. OBJECTIVE: VITAL SIGNS: Temperature 98.2, pulse 84, blood pressure 103/58, respirations 14, and oxygen 100% on room air. GENERAL: The patient is alert and oriented. Speech is clear. Affect is appropriate. He is a poor historian. He is in no apparent distress. Resting comfortably in bed at time the exam. HEENT: He is normocephalic and atraumatic. Sclerae anicteric. EOMs are intact. He is morbidly obese. NECK: Supple without jugular venous distention. There is no lymphadenopathy. His trachea is midline. LUNGS: Clear to auscultation bilaterally. Diminished in the bases. Respirations are even and unlabored. HEART: His heart rate is irregularly irregular with crisp S1 and S2. PMI is nondisplaced. At the left infraclavicular fossa, there is a noted area of eschar with erythema surrounding tracking down and laterally. The area of induration is below and lateral to the pacemaker site, it is unclear if the area connects to the device pocket. There is warmth over the area of induration, but no warmth overlying the pacemaker itself. There is a dark purple bruise on anterior aspect of the shoulder just above the superior outer aspect of eschar area. No drainage is noted. ABDOMEN: Obese, soft, and nontender without palpable masses. Hepatojugular reflux is negative. EXTREMITIES: Warm and dry to touch. Left leg is wrapped and bandaged overlying by Shadi wraps from the recent surgeries. A toe on the right foot has been amputated previously. Gait was not assessed. NEUROLOGIC: Grossly intact and nonfocal. DATABASE: Chest x-ray on 02/17 shows a right IJ central line with its tip in the SVC. No acute processes. There is a dual-chamber pacemaker in place, which appears to be [employer]. Laboratory from 02/19/2020; WBC 8.8, hemoglobin 6.4, and platelet count 131. Chemistry from 02/19, potassium 3.7, creatinine 3.3, and magnesium 2.0. Echocardiogram on 01/30/2020, EF 50% to 55% with normal left atrial size, aortic valve leaflets are somewhat thickened, and mild TR. EKG tracing dated 01/30/2020 showed demand atrial pacing and ventricular sensing. QRS duration is 148 milliseconds and a right bundle-branch block morphology. Device interrogation reveals a [employer] [place] XL DR, battery voltage 2.78 V, battery longevity estimated at 5.5 to 7.5 years. Mode DDIR 60 is the base rate limit and AV delay is 275 milliseconds. Lead parameters are stable. Lead impedances are stable. Initial interrogation shows underlying sinus rhythm with intact AV niki conduction. Normal device observation is seen. IMPRESSION: 1. Possible pacemaker pocket infection. 2. Pacemaker implant approximately three years ago by [employer] for symptomatic bradycardia, [employer] [place] XL . 3. Recent fall/trauma with left distal femur fracture status post internal repair. 4. Preserved LVEF 50% to 55% by echocardiogram, possible history of cardiomyopathy. 5. End-stage renal disease on hemodialysis Tuesday, Tuesday, and Tuesday with peritoneal dialysis right upper extremity AV fistula. 6. Enterobacter infection of the surgical wound. 7. Anemia PLAN AND RECOMMENDATIONS: Mr. Laguerre has evident eschar with erythema overlying his pacemaker site. There is an area of induration and warmth below and lateral to his device is not clear if this communicates with his pocket there with his pacemaker pocket or not. I am ordering an ultrasound of the soft tissue of his chest wall to further evaluate this. By his initial device interrogation in the chart, it does not appear that he is pacemaker dependent. Having this reprogrammed down to a lower rate limit of potentially 40 to 50 beats per minute to see his pacing demand in anticipation of possible extraction if needed. He may benefit from checking blood cultures, although IV antibiotics have been initiated and then likely be inconclusive. I will defer to Infectious Disease on this. If he does require device extraction, he will require transfer to [place] or [place] to accomplish this with a laser lead extraction given the chronic nature of the pacemaker. I will continue to follow. Thank you for allowing me to participate in the care of this patient. Job ID: [id number] MTDD
[2020-02-20] MEDS: Tamsulosin HCl 0.4 MG CAP PO SCH (20:33)
[2020-02-20] MEDS: Atorvastatin Calcium 40 MG TAB PO SCH (20:33)
[2020-02-21] MEDS: Acetaminophen 500 MG TAB PO SCH ×4 (01:13→17:11)
--- NOTE | 2020-02-21 02:04 | PRG ---
DATE OF SERVICE: 02/21/2020 SUBJECTIVE: The patient remains on the surgical floor. He is status post a ground level fall when he sustained a left distal periprosthetic femur fracture. He has undergone repair of this, but unfortunately it had become infected. He has since gone back for irrigation, debridement, washout and placement of antibiotic beads. Today, it was noted that the patient was having some redness in the area of his pacemaker pocket and was evaluated by Dr. Giles, who ordered soft tissue ultrasound that did not show a sign of abscess. Otherwise, the patient is waiting for placement. He did not require transfusions today. He is due for his scheduled dialysis tomorrow. PHYSICAL EXAMINATION: VITAL SIGNS: Stable. The patient is afebrile. GENERAL: The patient is resting comfortably in bed. He was asleep at the time of visit. I did not awaken him for exam. The nurses report no issues at this time. His respirations appeared nonlabored. His postop dressing appeared clean, dry, and intact. ASSESSMENT/PLAN: 1. Status post fall from standing. 2. Status post open reduction and internal fixation of left distal periprosthetic femur fracture. 3. Status post irrigation and debridement of postsurgical wound infection. 4. Left ankle sprain, improved. 5. History of end-stage renal disease, on hemodialysis. 6. History of obstructive sleep apnea. 7. Pacemaker placement. 8. Spinal stenosis. 9. Diabetes. 10. Gastric ulcer disease. 11. Acute blood loss anemia complicated by chronic anemia of disease, stable. PLAN: Plan will be to continue supportive care. Encourage physical and occupational therapy and await final placement decision. Job ID: [id number]
[2020-02-21 05:55] LABS: #Eosinphils 0.1 thou/uL (0.0-0.7); #Monocytes 0.3 thou/uL (0.11-0.59); #Neutrophils 5.1 thou/uL (1.40-6.50); %Basophils 0.2 % (0.0-1.0); %Eosinophils 1.2 % (0.0-10.0); %Monocytes 4.4 % (0.0-10.0); %Neutrophils 79.1 % (42.0-75.0); Hemoglobin 7.2 g/dL (14.0-18.0); Mean Corpuscular HGB CONC 31.4 g/dL (32.0-36.0); Mean Corpuscular Hemoglobin 30.6 pg (27.0-31.0); Mean Corpuscular Volume 97.6 fL (78.0-98.0); Mean Platelet Volume 8.5 fL (7.4-10.4); Platelet Count 139 thou/uL (130-400); RBC Distribution Width 18.8 % (11.5-14.5); Red Blood Cell (RBC) Count 2.36 mill/uL (4.70-6.10); White Blood Cell (WBC) Count 6.4 thou/uL (4.8-10.8)
[2020-02-21 06:18] LABS: Phosphorus 3.2 mg/dL (2.3-4.7)
[2020-02-21 06:20] LABS: Anion Gap 10 mmol/L (10-20); BUN (Urea Nitrogen) 33 mg/dL (8.4-25.7); Calc. Creatinine Clearance 26 mL/min (70-130); Calcium 6.6 mg/dL (7.8-10.44); Carbon Dioxide 28 mmol/L (23-31); Chloride 102 mmol/L (98-107); Estimated GFR-MDRD 14; Glucose 122 mg/dL (83-110); Magnesium 1.8 mg/dL (1.6-2.6); Potassium 3.4 mmol/L (3.5-5.1); Sodium 137 mmol/L (136-145)
[2020-02-21] MEDS: traMADol HCl 50 MG TAB PO PRN (07:09)
[2020-02-21] MEDS: Insulin Glargine 6 UNITS in Pre-Filled Syringe 1 EACH SC SCH (08:10)
[2020-02-21] MEDS: HYDROcodone/Acetaminophen 7.5/325 mg Tablet PO PRN ×4 (08:11→21:00)
[2020-02-21] MEDS ORDERED: CEFAZOLIN 2 GM in Premix Bag 1 BAG IVPB SCH (08:15)
[2020-02-21] MEDS: Heparin 5,000 UNITS/ML VIAL SC SCH ×3 (08:25→20:55)
[2020-02-21] MEDS: Megestrol Acetate 800 MG/20 ML UDCUP PO SCH (08:25)
[2020-02-21] MEDS: Thiamine 100 MG TAB PO SCH (08:26)
[2020-02-21] MEDS: Calcitriol 0.25 MCG CAP PO SCH (08:26)
[2020-02-21] MEDS: Saccharomyces boulardii 250 MG CAP PO SCH (08:26)
[2020-02-21] MEDS: Ergocalciferol 1.25 MG(50,000 UNITS) CAP PO SCH (08:26)
[2020-02-21] MEDS: Ferrous Sulfate 325 MG TAB PO SCH ×2 (08:26→17:10)
[2020-02-21] MEDS: Ascorbic Acid 500 mg Chewable Tablet PO SCH ×2 (08:26→17:10)
[2020-02-21] MEDS: Folic Acid/Vit B Comp W-C PO SCH (08:26)
[2020-02-21] MEDS: Finasteride 5 MG TAB PO SCH (08:26)
[2020-02-21] MEDS: Gabapentin 100 MG CAP PO SCH ×2 (08:26→20:54)
[2020-02-21] MEDS: Allopurinol 100 MG TAB PO SCH (08:26)
[2020-02-21] MEDS: Sevelamer Carbonate 800 MG TAB PO SCH ×3 (08:26→17:10)
[2020-02-21] MEDS: Calcium Carbonate 500 MG TAB PO SCH ×3 (08:26→20:55)
[2020-02-21] MEDS: Midodrine HCl 5 MG TAB PO SCH ×3 (08:27→20:55)
[2020-02-21] MEDS: Pyridostigmine Bromide IR 60 MG TAB PO SCH ×3 (08:27→20:53)
[2020-02-21] MEDS: Cyclobenzaprine 10 MG TAB PO PRN (09:39)
[2020-02-21] MEDS: Insulin Regular 300 UNITS/3 ML VIAL SC PRN (11:30)
[2020-02-21] MEDS: Meropenem 500 MG in Sodium Chloride 0.9% 100 ML IVPB SCH (12:35)
--- NOTE | 2020-02-21 12:46 | PDOC.EP ---
- Subjective Date: 02/21/20 Time: 08:00 Interval History: No changes overnight. - Review of Systems Constitutional: denies: chills, fever, malaise, sweats, weakness Respiratory: denies: shortness of breath, SOB with excertion, sputum, wheezing Cardiology: denies: chest pain, edema, heart racing, light headedness, orthopnea , swelling Gastrointestinal: denies: abdominal pain, constipation, diarrhea Musculoskeletal: reports: unstable gait, leg pain. denies: falls, neck pain - Objective Allergies/Adverse Reactions: Allergies Allergy/AdvReac Type Severity Reaction Status Date / Time No Known Drug Allergies Allergy Verified 01/30/20 01:02 Current Medications Acetaminophen (Tylenol) 500 mg PO Q6HR [facility] Last Admin: 02/21/20 11:25 Dose: 500 mg Hydrocodone Bitart/Acetaminophen ([place] 7.5/325) 1 tab PO Q4H PRN PRN Reason: Mild Pain (1-3) Hydrocodone Bitart/Acetaminophen ([place] 7.5/325) 2 tab PO Q4H PRN PRN Reason: Moderate Pain (4-6) Last Admin: 02/21/20 08:11 Dose: 2 tab Albuterol/Ipratropium (Duoneb) 3 ml NEB Q4H PRN PRN Reason: Wheezing Allopurinol (Zyloprim) 100 mg PO DAILY [facility] Last Admin: 02/21/20 08:26 Dose: 100 mg Ascorbic Acid (Vitamin C) 500 mg PO BID-WM [facility] Last Admin: 02/21/20 08:26 Dose: 500 mg Atorvastatin Calcium (Lipitor) 40 mg PO HS [facility] Last Admin: 02/20/20 20:33 Dose: 40 mg Calcitriol (Rocaltrol) 0.25 mcg PO DAILY [facility] Last Admin: 02/21/20 08:26 Dose: 0.25 mcg Calcium Carbonate (Oscal-500) 500 mg PO TID [facility] Last Admin: 02/21/20 08:26 Dose: 500 mg Cyanocobalamin (Vitamin B-12) 1,000 mcg SC Q28D [facility] Last Admin: 01/30/20 18:37 Dose: Not Given Cyclobenzaprine HCl (Flexeril) 5 mg PO Q8H PRN PRN Reason: Muscle Spasm Last Admin: 02/21/20 09:39 Dose: 5 mg Dextrose/Water (Dextrose 50%) 25 gm SLOW IVP PRN PRN PRN Reason: Hypoglycemia Epoetin [place]-epbx (Retacrit) 10,000 unit SC MWF [facility] Last Admin: 02/20/20 12:53 Dose: 10,000 unit Ergocalciferol (Drisdol) 1.25 mg PO Q7D [facility] Last Admin: 02/21/20 08:26 Dose: 1.25 mg Fentanyl (Duragesic) 25 mcg TD Q3D [facility] Last Admin: 02/21/20 11:26 Dose: 25 mcg Ferrous Sulfate (Feosol) 325 mg PO BID-[facility] Last Admin: 02/21/20 08:26 Dose: 325 mg Finasteride (Proscar) 5 mg PO DAILY [facility] Last Admin: 02/21/20 08:26 Dose: 5 mg Gabapentin (Neurontin) 100 mg PO BID [facility] Last Admin: 02/21/20 08:26 Dose: 100 mg Glucagon (Glucagon) 1 mg IM PRN PRN PRN Reason: Hypoglycemia Heparin Sodium (Porcine) (Heparin) 5,000 units SC TID [facility] Last Admin: 02/21/20 08:25 Dose: 5,000 units Hydralazine HCl (Apresoline) 10 mg SLOW IVP Q4H PRN PRN Reason: SBP > 170 or DBP > 100 Dextrose/Water (D5w) 1,000 mls @ 0 mls/hr IV .Q0M PRN PRN Reason: Hypoglycemia Insulin Glargine 6 units/ (Miscellaneous Medication) 0.06 mls @ 0 mls/hr SC QAM [facility] Last Admin: 02/21/20 08:10 Dose: 0.06 mls Meropenem 500 mg/ Sodium (Chloride) 100 mls @ 200 mls/hr IVPB 1300 [facility] Last Admin: 02/21/20 12:35 Dose: 100 mls Cefazolin Sodium/Dextrose 2 gm (/ Device) 50 mls @ 100 mls/hr IVPB ONCALL-OR [facility] Insulin Human Regular (Humulin R) 0 units SC .BEDTIME SLIDING SC PRN PRN Reason: Bedtime Correctional Scale Last Admin: 02/17/20 20:37 Dose: 2 unit Insulin Human Regular (Humulin R) 0 units SC .AGGRESSIVE SLIDING PRN PRN Reason: Aggressive Correctional Scale Last Admin: 02/21/20 11:30 Dose: 3 unit Loperamide HCl (Imodium) 2 mg PO Q4H PRN PRN Reason: Diarrhea/Loose Stools Last Admin: 02/20/20 20:33 Dose: 2 mg Megestrol Acetate (Megace) 400 mg PO DAILY [facility] Last Admin: 02/21/20 08:25 Dose: 400 mg Metoprolol Succinate (Toprol Xl) 12.5 mg PO DAILY [facility] Last Admin: 02/21/20 08:27 Dose: Not Given Midodrine (Proamatine) 10 mg PO TID [facility] Last Admin: 02/21/20 08:27 Dose: 10 mg Ondansetron HCl (Zofran) 4 mg IVP Q6H PRN PRN Reason: Nausea Last Admin: 02/03/20 18:06 Dose: 4 mg Ondansetron HCl (Zofran Odt) 4 mg PO Q6H PRN PRN Reason: Nausea/Vomiting Last Admin: 02/12/20 09:14 Dose: 4 mg Pantoprazole Sodium (Protonix) 40 mg PO BID [facility] Last Admin: 02/21/20 08:26 Dose: 40 mg Pyridostigmine [place] (Mestinon) 30 mg PO TID [facility] Last Admin: 02/21/20 08:27 Dose: 30 mg Saccharomyces Boulardii (Florastor) 250 mg PO DAILY [facility] Last Admin: 02/21/20 08:26 Dose: 250 mg Sevelamer Carbonate (Renvela) 1,600 mg PO TID-[facility] Last Admin: 02/21/20 11:25 Dose: 1,600 mg Sodium Chloride (Flush - Normal Saline) 10 ml IVF PRN PRN PRN Reason: Saline Flush Tamsulosin HCl (Flomax) 0.8 mg PO [facility] Last Admin: 02/20/20 20:33 Dose: 0.8 mg Thiamine HCl (Thiamine) 100 mg PO DAILY [facility] Last Admin: 02/21/20 08:26 Dose: 100 mg Tramadol HCl (Ultram) 50 mg PO Q4H PRN PRN Reason: PAIN-MODERATE Last Admin: 02/21/20 07:09 Dose: 50 mg Vitamin B Complex/Vit C/Folic Acid (Nephro-Brannon Tablet) 1 tab PO DAILY [facility] Last Admin: 02/21/20 08:26 Dose: 1 tab Vital Signs & Weight: Vital Signs Temp Pulse Pulse Resp BP BP Pulse Ox 02/21/20 12:32 98.9 F 73 20 125/63 02/21/20 10:24 98.2 F 72 16 94/55 L 98 02/21/20 09:42 98.3 F 85 20 116/61 02/21/20 07:48 98.3 F 80 20 119/68 98 02/21/20 04:12 98.8 F 86 16 101/63 100 Admit Weight 255 lb 15.296 oz Weight 255 lb 15.296 oz I/O: I/O 02/20/20 02/21/20 02/22/20 06:59 06:59 06:59 Intake Total 1360 350 Output Total 0 Balance 1360 350 - Physical Exam General: alert & oriented x3, appears well, no apparent distress, speech clear, affect appropriate HEENT: mucus membranes moist, normocephaly Neck: supple neck, midline trachea, no JVD/HJR Cardiology: regular rate and rhythm Lungs: clear to auscultation, normal breath sounds, decreased breath sounds Neurology: cranial nerve 2-12 intact, grossly intact, coordination normal Abdomen: unremarkable, active bowel sounds, HJR negative Skin: other (eschar with erythema and evident induration around and below PPM site. Not overlying PPM site. No drainiage) - Labs Result Diagrams: 02/24/20 06:10 02/24/20 06:10 - Device Device: dual, pacemaker Device Result: [facility] - Assessment/Plan Assessment/Plan: 1. Possible pacemaker pocket infection. 2. Pacemaker implant approximately three years ago by [facility] for symptomatic bradycardia, [facility] [place] [address]. 3. Recent fall/trauma with left distal femur fracture status post internal repair. 4. Preserved LVEF 50% to 55% by echocardiogram, possible history of cardiomyopathy. 5. End-stage renal disease on hemodialysis Tuesday, Tuesday, and Tuesday with peritoneal dialysis right upper extremity AV fistula. 6. Enterobacter infection of the surgical wound. 7. Anemia Ultrasound of soft tissue around the pacemaker did not clearly correlate pocket involvement of the infected area with the pacemaker pocket, although this would be difficult to disprove. The area of suppurative infection needs to be treated and addressed. Any type of I&D would likely result in pacemaker infection if this is not already occurring. His pacemaker lower rate limit was decreased to 40 yesterday, and device recheck is pending to see if the temporary pacemaker would be needed if explant is pursued. He is not pacemaker dependent and would likely benefit from laser lead extraction of his pacemaker. Possibly followed with either reimplant with a right-sided device versus a micra. Pacemaker interrogation did not reveal any significant atrial fibrillation burden however I have seen paroxysmal atrial tachycardia during device interrogation and he would likely benefit from a dual-chamber system if possible. This is a complicated case requiring close coordination of multiple specialties and continued care regarding his multiple ongoing problems. He would need to be admitted under hospitalist services or trauma at the receiving hospital with appropriate consults for continuation of care, but I am happy to contact an EP colleague with [facility] to discuss pacemaker extraction. As I am aware, currently he is planned for surgical intervention Tuesday. Device explant is not emergent and transfer could be initiated whenever felt to be appropriate from a medical and surgical perspective.
--- NOTE | 2020-02-21 13:56 | PRG ---
DATE OF SERVICE: 02/20/2020 SUBJECTIVE: Mr. Laguerre remained on surgical floor. The patient reports pain is not well controlled of his buttock area, pain 8 to 9/10. His vital signs have been stable after last unit of blood transfusion yesterday. He developed no fever or shortness of breath. He has tolerated with the diet. He has tolerated with dialysis. The patient developed area of induration and necrosis on the left chest at the pacemaker site. He had two bowels movements today. OBJECTIVE: GENERAL: Currently, the patient lying in bed comfortable with no acute respiratory distress. Complains of pain from the postop area. VITAL SIGNS: Temperature 98.2, heart rate 82, respiratory rate 20, O2 saturation 100 on room air, and blood pressure 123/73. LUNGS: Clear bilaterally. HEART: Regular rate and rhythm. ABDOMEN: Soft and nondistended. EXTREMITIES: Neurovascularly intact x4. NEUROLOGIC: No focal neurology deficit. DIAGNOSTIC DATA: LABORATORY: Shows hemoglobin 8.2. IMAGING: Ultrasound soft-tissue of left chest, no sign of abscess. ASSESSMENT: 1. Status post fall. 2. Status post open reduction and internal fixation of left distal femur fracture, status post irrigation, washout of postop wound infection. 3. History of end-stage renal disease on hemodialysis, history of sleep apnea, pacemaker, gastric ulcer, and gastric bypass. 4. Acute blood loss anemia, stable. PLAN: EP, Dr. Giles, will consult for possible pacemaker site infection. Continue dialysis. Continue working with physical therapy/occupational therapy. The patient will have plan to go to the OR for another washout on Tuesday. Continue antibiotic as Dr. Cruz' recommendation. The patient was seen DICTATION ENDS HERE. Job ID: [id number]
--- NOTE | 2020-02-21 17:11 | PRG ---
DATE OF SERVICE: 02/21/2020 SUBJECTIVE: Mr. Laguerre remained on surgical floor. The patient still complained of pain with movement and requests fentanyl patch. This morning, his hemoglobin dropped to 7.2. Blood pressure soft, systolic, 84 and that he developed no fever or shortness of breath. He has tolerated with the diet. He tolerated with hemodialysis as scheduled. Dr. Giles saw the patient, recommend transfer to [place] or [place] for pacemaker infection extrication. His pacemaker is currently stable, so the transfer is not urgent. He will need to go back to the OR tomorrow with Dr. Hernandez for another washout of his left distal femur fracture. OBJECTIVE: GENERAL: Currently, the patient is lying in bed, comfortable with no acute respiratory distress. VITAL SIGNS: Temperature 98.7, heart rate 88, respiratory rate 16, O2 saturation 100 on room air, blood pressure 115/56. LUNGS: Clear bilaterally. HEART: Regular rate and rhythm. ABDOMEN: Soft, nondistended. EXTREMITIES: Postop dressing clean and dry. Neurovascularly intact. NEUROLOGIC: No focal neurology deficits. ASSESSMENT: 1. Status post fall. 2. Status post open reduction and internal fixation of the left distal femur fracture, status post irrigation, washout with postop wound infection, improved. 3. Pacemaker site infection. 4. History of end-stage renal disease, on hemodialysis. 5. Sleep apnea. 6. Pacemaker. 7. Gastric ulcer. 8. Gastric bypass. 9. Acute blood loss anemia, stable. PLAN: The patient will go to the OR with Dr. Hernandez tomorrow for another washout of left distal femur fracture. The patient will plan to coordinate with [facility] for transfer the patient for pacemaker site infection extrication Dr. Wild will coordinate with [facility]. Dr. Hernandez will coordinate with the orthopedic surgeon in [facility]. Nephrology will need to be consulted. The patient will continue physical therapy. Continue diet. The patient will need to be have a CBC checked tomorrow. The patient was seen by Dr. Lee on round this morning. Job ID: [id number]
--- NOTE | 2020-02-21 20:35 | PRG ---
DATE OF SERVICE: 02/21/2020 SERVICE: Nephrology. SUBJECTIVE: A 74-year-old male seen in followup for end-stage renal disease management. The patient continued to complain of left lower extremity pain. Otherwise, no new complaint. Still having intermittent rectal pain also. Denied nausea, vomiting, abdominal pain. Oral intake and appetite are improved. OBJECTIVE: VITAL SIGNS: Temperature 98.7, pulse 88, respiratory rate 16, SpO2 100, blood pressure 116/66. GENERAL: Obese male, in no obvious distress. Afebrile. Anicteric. Acyanotic. HEENT: Normocephalic, atraumatic. Oral mucosa is moist. CARDIOVASCULAR: Regular rhythm and rate. Normal heart sounds one and two. RESPIRATORY: Fair air entry bilaterally. No obvious crackle or rhonchi or use of accessory muscles. GI: Obese, soft, nontender, nondistended with normal bowel sounds. PD catheter noted. MUSCULOSKELETAL: Right IJ triple-lumen catheter noted as well as right upper arm AV fistula with good thrill. Left upper chest, necrotic eschar with minimal surrounding erythema on top of the pacemaker noted. Trace to mild edema of left upper and lower extremity noted. Left lower extremity dressing noted as well. TECHNICAL SUPPORT ENGINEER: Conscious and alert, oriented x3 with appropriate mental status. Cranial nerves 2 through 12 are grossly intact. DIAGNOSTIC DATA: CBC showed WBC count of 6.4, hemoglobin of 7.2, platelets of 139. Chemistry showed sodium 137, potassium 3.4, chloride 102, CO2 28, BUN 33, creatinine 4.29, glucose 122, calcium 6.6, magnesium 1.8. ASSESSMENT: 1. End-stage renal disease. Tolerated hemodialysis well. Last treatment was yesterday February 19. 2. Volume status: Markedly improved. Close to euvolemia. Minimal edema of left extremities noted. 3. Electrolytes: Mild hypokalemia noted. Otherwise, other electrolytes are acceptable. 4. Metabolic acidosis: Improved with hemodialysis. 5. Hypotension: Improved with IV resuscitation. 6. Orthostatic hypotension: Improved with midodrine, and pyridostigmine. 7. Hyperphosphatemia, markedly improved. 8. Hypocalcemia: Persistent. 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 9. Vitamin D deficiency. 10. Acute blood loss anemia. 11. Anemia of chronic kidney disease. PLAN: 1. Continue current therapies. We will also continue vitamin D supplementation as well as calcium supplementation. 2. We will recheck electrolytes tomorrow due to hypokalemia. We will plan on dialyzing the patient tomorrow with UF as tolerated. 3. We will continue to hold antihypertensives. 4. We will try to coordinate with General surgery due to planned incision and drainage of left lower extremity, find a good time for hemodialysis tomorrow. 5. Plan transfer to higher center for explantation of pacemaker noted. The patient can be discharged or transferred from Nephrology point of view whenever this is arranged. We will continue to follow patient while still in the hospital and provide dialytic treatment as needed. Many thanks for involving us in the care of this patient. We will continue to follow with you. Job ID: [id number]
[2020-02-21] MEDS: Tamsulosin HCl 0.4 MG CAP PO SCH (20:54)
[2020-02-21] MEDS: Atorvastatin Calcium 40 MG TAB PO SCH (20:55)
--- NOTE | 2020-02-22 00:03 | PRG ---
DATE OF SERVICE: SUBJECTIVE: Patient is currently on the surgical floor, he is status post a ground level fall in which he sustained a left distal periprosthetic femur fracture. The patient had a postop wound infection that required incision, drainage, and antibiotic bead placement. He is scheduled to undergo a repeat washout tomorrow. Patient also has hemodialysis scheduled for tomorrow. Patient was examined by Dr. Giles for a suspected pacemaker pocket infection today. There was a discussion with the primary team and the others involved in the patient's care. It was that the patient after his surgery be transferred to [facility] for removal of his pacemaker and replacement. Arrangements are being made for this and this may happen within the next 24 to 48 hours. Job ID: [id number]
[2020-02-22] MEDS: Acetaminophen 500 MG TAB PO SCH ×5 (00:18→23:26)
[2020-02-22] MEDS ORDERED: Tobramycin Sulfate 1.2 GM VIAL ONE (06:05)
[2020-02-22 06:13] LABS: #Eosinphils 0.2 thou/uL (0.0-0.7); #Monocytes 0.4 thou/uL (0.11-0.59); #Neutrophils 5.2 thou/uL (1.40-6.50); %Basophils 0.5 % (0.0-1.0); %Eosinophils 3.2 % (0.0-10.0); %Lymphocytes 15.2 % (21.0-51.0); %Monocytes 5.2 % (0.0-10.0); Hemoglobin 8.9 g/dL (14.0-18.0); Mean Corpuscular HGB CONC 32.3 g/dL (32.0-36.0); Mean Corpuscular Hemoglobin 31.3 pg (27.0-31.0); Mean Corpuscular Volume 97.1 fL (78.0-98.0); Mean Platelet Volume 8.2 fL (7.4-10.4); Platelet Count 179 thou/uL (130-400); RBC Distribution Width 18.3 % (11.5-14.5); Red Blood Cell (RBC) Count 2.83 mill/uL (4.70-6.10); White Blood Cell (WBC) Count 6.8 thou/uL (4.8-10.8)
[2020-02-22] MEDS ORDERED: Fentanyl 100 MCG/2 ML VIAL ONE ×3 (06:40→09:19)
--- NOTE | 2020-02-22 06:50 | PRG ---
DATE OF SERVICE: 02/21/2020 SUBJECTIVE: A little bit depressed from all the complications. The patient had an ultrasound of the left chest area around the pacer, and there is some edema in the soft tissue, but no fluid collection identified around the pocket site. Dr. Giles has seen the patient and so he may have to have the pacer removed, but I do not have definitive evidence to suggest that the actual pacer is involved at this point in time. It is not clear the reason why he has this area of necrotic eschar OBJECTIVE: LUNGS: Clear. HEART: S1 and S2. Regular rate. The chest wall eschar area is about the same. A little bit of erythema surrounding it. ABDOMEN: Soft, not distended or tender. EXTREMITIES: In the left lower extremity, splint still in place. LABORATORY DATA: White cell count 6.4, hemoglobin 7.2, platelets 139, 79% neutrophils. Sodium 137, creatinine 4.29, glucose 122. The cultures with E cloacae as noted before, but now we have Pseudomonas stutzeri and Stenotrophomonas maltophilia. ASSESSMENT AND DISCUSSION: Type 2 diabetes, end-stage renal disease, on peritoneal dialysis, now on hemodialysis after this event, cardiomyopathy with pacemaker, necrotic eschar right next to the pacemaker site with surrounding erythema without conclusive evidence to suggest pacer fracture of left distal femur, open reduction and internal fixation and infection with 3 different gram negatives. The patient will need a combination of either meropenem or ertapenem plus levofloxacin, adjusted for renal function until the first week of March to complete 42 days of therapy. Eventually, he is going to need replacement of the TKR site. Regarding the pacemaker, it looks like he is going to be referred to [place], but since there is no conclusive evidence, one approach would be to remove the eschar and see what is underneath and wait for antimicrobial tx response before we jump to the removal option. Job ID: [id number] [facility]
[2020-02-22] MEDS ORDERED: PACU-Morphine 4MG/ML VIAL SLOW IVP PRN (07:12)
[2020-02-22] MEDS ORDERED: Promethazine HCl 25 MG/ML VIAL IM PRN (07:12)
[2020-02-22] MEDS ORDERED: Meperidine HCl/PF 25 MG/ML VIAL SLOW IVP PRN (07:12)
[2020-02-22] MEDS ORDERED: Morphine Sulfate 2 MG/ML SYRINGE SLOW IVP PRN (07:12)
[2020-02-22] MEDS ORDERED: HYDROmorphone 2 MG/ML VIAL SLOW IVP PRN (07:12)
[2020-02-22] MEDS ORDERED: Ondansetron HCl/PF 4 MG/2 ML Vial IVP PRN (07:12)
[2020-02-22] MEDS ORDERED: Promethazine HCl 25 MG/ML VIAL SLOW IVP PRN (07:12)
[2020-02-22] MEDS ORDERED: PHENYLEPHRINE-NS 100 MCG/ML 10 ML SYRINGE ONE ×2 (08:16→10:42)
[2020-02-22] MEDS ORDERED: SUGAMMADEX SODIUM 200 MG/2 ML VIAL ONE (08:16)
[2020-02-22] MEDS ORDERED: HYDROmorphone 2 MG/ML VIAL ONE (09:20)
[2020-02-22] MEDS ORDERED: Sodium Chloride 0.9% 10 ML ONE (09:22)
--- NOTE | 2020-02-22 09:47 | OP ---
DATE OF PROCEDURE: 02/22/2020 PROCEDURE PERFORMED: Irrigation and debridement of left distal thigh with history of open reduction and internal fixation of distal femur fracture, antibiotic beads were placed. PREOPERATIVE DIAGNOSIS: Left distal femur wound infection. POSTOPERATIVE DIAGNOSIS: Left distal femur wound infection. COMPLICATIONS: None. ESTIMATED BLOOD LOSS: 100 mL. ANALYST BUSINESS ANALYSIS: Selena Disla PA-C IMPLANTS: 15 antibiotic beads were placed on a single Ethibond suture. These included tobramycin cement with 2 g of vancomycin added. INDICATIONS: Mr. Laguerre is a 74-year-old male, who fell approximately 1 month ago and fractured his left distal femur. He was treated operatively with open reduction and internal fixation. Unfortunately, he has developed wound complications. He has had dehiscence and infection. He has grown several bacteria on his cultures. He has been treated with antibiotic beads, intravenous antibiotics, and previous irrigation and debridement. He is now indicated for repeat irrigation and debridement with replacement of antibiotic beads. DESCRIPTION OF PROCEDURE: Mr. Laguerre was identified in the preoperative holding area. His correct extremity was marked. He was carried to the operating room. He was positioned supine. General anesthesia was induced. A multidisciplinary time-out was performed. The left lower extremity was prepped and draped in sterile fashion. We began the procedure with an incision along the lateral thigh. We dissected down through the subcutaneous tissues and opened the fascia. We encountered the patient's previously placed beads. These were removed. We did not encounter any gross purulence. We thoroughly irrigated with copious lavage all tissues including the lateral plate. We also entered the knee joint and thoroughly irrigated his knee itself. We debrided any nonviable tissue, which was minimal. We irrigated with 10 L of lavage. We mixed cement on the back table and added 2 g of vancomycin. We then constructed a strand of 15 beads. These were placed along the fracture site as well along the lateral plate. Next, we closed the fascia over the beads with 0 PDS suture followed by a partial skin closure. We packed the wound and placed a sterile dressing. The patient was taken to the recovery room in good condition. Job ID: [id number]
[2020-02-22] MEDS ORDERED: Lidocaine 1% PF 5 ML VIAL ONE (10:42)
[2020-02-22] MEDS ORDERED: Rocuronium Bromide 10 MG/ML (10ML VIAL) ONE (10:42)
[2020-02-22] MEDS ORDERED: PROPOFOL 200 MG/20 ML VIAL ONE (10:42)
[2020-02-22] MEDS ORDERED: Ondansetron PF 4 MG/2 ML Vial ONE (10:42)
[2020-02-22] MEDS ORDERED: EPHEDRINE 25 MG/5 ML SYRINGE ONE (10:42)
[2020-02-22] MEDS ORDERED: diphenhydrAMINE 50 MG/ML VIAL ONE (10:42)
[2020-02-22] MEDS: Sevelamer Carbonate 800 MG TAB PO SCH ×3 (11:15→16:56)
[2020-02-22] MEDS: Heparin 5,000 UNITS/ML VIAL SC SCH ×3 (11:15→21:16)
[2020-02-22] MEDS: Pyridostigmine Bromide IR 60 MG TAB PO SCH ×3 (11:23→21:16)
[2020-02-22] MEDS: Allopurinol 100 MG TAB PO SCH (11:24)
[2020-02-22] MEDS: Calcium Carbonate 500 MG TAB PO SCH ×3 (11:24→21:17)
[2020-02-22] MEDS: Midodrine HCl 5 MG TAB PO SCH ×3 (11:24→21:17)
[2020-02-22] MEDS: Megestrol Acetate 800 MG/20 ML UDCUP PO SCH (11:25)
[2020-02-22] MEDS: Folic Acid/Vit B Comp W-C PO SCH (11:25)
[2020-02-22] MEDS: Saccharomyces boulardii 250 MG CAP PO SCH (11:25)
[2020-02-22] MEDS: Gabapentin 100 MG CAP PO SCH ×2 (11:25→21:17)
[2020-02-22] MEDS: Thiamine 100 MG TAB PO SCH (11:25)
[2020-02-22] MEDS: Finasteride 5 MG TAB PO SCH (11:25)
[2020-02-22] MEDS: Calcitriol 0.25 MCG CAP PO SCH (11:25)
[2020-02-22] MEDS: Insulin Glargine 6 UNITS in Pre-Filled Syringe 1 EACH SC SCH (11:26)
[2020-02-22] MEDS: Ferrous Sulfate 325 MG TAB PO SCH ×2 (11:28→16:56)
[2020-02-22] MEDS: Ascorbic Acid 500 mg Chewable Tablet PO SCH ×2 (11:28→16:56)
[2020-02-22] MEDS: EPOETIN ALFA-EPBX (ESRD) 10,000 UNIT/ML VIAL SC SCH (11:57)
[2020-02-22] MEDS: Insulin Regular 300 UNITS/3 ML VIAL SC PRN (11:58)
[2020-02-22] MEDS ORDERED: Albumin 25% 25 GM/100 ML BOT IVPB SCH (13:00)
--- NOTE | 2020-02-22 16:00 | PDOC.EP ---
- Subjective Date: 02/22/20 Time: 15:58 Interval History: evaluated while in HD. Feels tired and reporting pain in his left leg after the surgical washout this AM. otherwise he voices no new concerns or complaints. He is agreeable to go to [place] for PPM explant. - Review of Systems Constitutional: reports: weakness. denies: chills, fever, malaise, sweats Respiratory: denies: cough, shortness of breath, wheezing Cardiology: denies: chest pain, edema, heart racing, light headedness, palpitations, passing out Gastrointestinal: denies: abdominal pain, constipation Musculoskeletal: reports: leg pain. denies: unstable gait - Objective Allergies/Adverse Reactions: Allergies Allergy/AdvReac Type Severity Reaction Status Date / Time No Known Drug Allergies Allergy Verified 01/30/20 01:02 Current Medications Acetaminophen (Tylenol) 500 mg PO Q6HR [facility] Last Admin: 02/22/20 11:25 Dose: 500 mg Hydrocodone Bitart/Acetaminophen ([place] 7.5/325) 1 tab PO Q4H PRN PRN Reason: Mild Pain (1-3) Last Admin: 02/21/20 21:00 Dose: 1 tab Hydrocodone Bitart/Acetaminophen ([place] 7.5/325) 2 tab PO Q4H PRN PRN Reason: Moderate Pain (4-6) Last Admin: 02/21/20 17:10 Dose: 2 tab Albumin Human (Albumin 25%) 25 gm IVPB NOW [facility] Stop: 02/22/20 18:00 Last Admin: 02/22/20 14:34 Dose: 25 gm Albuterol/Ipratropium (Duoneb) 3 ml NEB Q4H PRN PRN Reason: Wheezing Allopurinol (Zyloprim) 100 mg PO DAILY [facility] Last Admin: 02/22/20 11:24 Dose: 100 mg Ascorbic Acid (Vitamin C) 500 mg PO BID-WM [facility] Last Admin: 02/22/20 11:28 Dose: 500 mg Atorvastatin Calcium (Lipitor) 40 mg PO HS [facility] Last Admin: 02/21/20 20:55 Dose: 40 mg Calcitriol (Rocaltrol) 0.25 mcg PO DAILY [facility] Last Admin: 02/22/20 11:25 Dose: 0.25 mcg Calcium Carbonate (Oscal-500) 500 mg PO TID [facility] Last Admin: 02/22/20 11:24 Dose: 500 mg Cyanocobalamin (Vitamin B-12) 1,000 mcg SC Q28D [facility] Last Admin: 01/30/20 18:37 Dose: Not Given Cyclobenzaprine HCl (Flexeril) 5 mg PO Q8H PRN PRN Reason: Muscle Spasm Last Admin: 02/21/20 09:39 Dose: 5 mg Dextrose/Water (Dextrose 50%) 25 gm SLOW IVP PRN PRN PRN Reason: Hypoglycemia Epoetin Hawk-epbx (Retacrit) 10,000 unit SC MWF [facility] Last Admin: 02/22/20 11:57 Dose: 10,000 unit Ergocalciferol (Drisdol) 1.25 mg PO Q7D [facility] Last Admin: 02/21/20 08:26 Dose: 1.25 mg Fentanyl (Duragesic) 25 mcg TD Q3D [facility] Last Admin: 02/21/20 11:26 Dose: 25 mcg Ferrous Sulfate (Feosol) 325 mg PO BID-[facility] Last Admin: 02/22/20 11:28 Dose: 325 mg Finasteride (Proscar) 5 mg PO DAILY [facility] Last Admin: 02/22/20 11:25 Dose: 5 mg Gabapentin (Neurontin) 100 mg PO BID [facility] Last Admin: 02/22/20 11:25 Dose: 100 mg Glucagon (Glucagon) 1 mg IM PRN PRN PRN Reason: Hypoglycemia Heparin Sodium (Porcine) (Heparin) 5,000 units SC TID [facility] Last Admin: 02/22/20 11:15 Dose: Not Given Hydralazine HCl (Apresoline) 10 mg SLOW IVP Q4H PRN PRN Reason: SBP > 170 or DBP > 100 Dextrose/Water (D5w) 1,000 mls @ 0 mls/hr IV .Q0M PRN PRN Reason: Hypoglycemia Insulin Glargine 6 units/ (Miscellaneous Medication) 0.06 mls @ 0 mls/hr SC QAM [facility] Last Admin: 02/22/20 11:26 Dose: 0.06 mls Meropenem 500 mg/ Sodium (Chloride) 100 mls @ 200 mls/hr IVPB 1300 [facility] Last Admin: 02/21/20 12:35 Dose: 100 mls Cefazolin Sodium/Dextrose 2 gm (/ Device) 50 mls @ 100 mls/hr IVPB ONCALL-OR [facility] Levofloxacin 250 mg/ Device 50 mls @ 100 mls/hr IVPB Q24HR [facility] Last Admin: 02/21/20 18:35 Dose: 50 mls Insulin Human Regular (Humulin R) 0 units SC .BEDTIME SLIDING SC PRN PRN Reason: Bedtime Correctional Scale Last Admin: 02/17/20 20:37 Dose: 2 unit Insulin Human Regular (Humulin R) 0 units SC .AGGRESSIVE SLIDING PRN PRN Reason: Aggressive Correctional Scale Last Admin: 02/22/20 11:58 Dose: 3 unit Loperamide HCl (Imodium) 2 mg PO Q4H PRN PRN Reason: Diarrhea/Loose Stools Last Admin: 02/20/20 20:33 Dose: 2 mg Megestrol Acetate (Megace) 400 mg PO DAILY [facility] Last Admin: 02/22/20 11:25 Dose: 400 mg Metoprolol Succinate (Toprol Xl) 12.5 mg PO DAILY [facility] Last Admin: 02/22/20 11:16 Dose: Not Given Midodrine (Proamatine) 10 mg PO TID [facility] Last Admin: 02/22/20 11:24 Dose: 10 mg Ondansetron HCl (Zofran) 4 mg IVP Q6H PRN PRN Reason: Nausea Last Admin: 02/03/20 18:06 Dose: 4 mg Ondansetron HCl (Zofran Odt) 4 mg PO Q6H PRN PRN Reason: Nausea/Vomiting Last Admin: 02/12/20 09:14 Dose: 4 mg Pantoprazole Sodium (Protonix) 40 mg PO BID [facility] Last Admin: 02/22/20 11:25 Dose: 40 mg Pyridostigmine Kennedy (Mestinon) 30 mg PO TID [facility] Last Admin: 02/22/20 11:23 Dose: 30 mg Saccharomyces Boulardii (Florastor) 250 mg PO DAILY [facility] Last Admin: 02/22/20 11:25 Dose: 250 mg Sevelamer Carbonate (Renvela) 1,600 mg PO TID-[facility] Last Admin: 02/22/20 11:25 Dose: 1,600 mg Sodium Chloride (Flush - Normal Saline) 10 ml IVF PRN PRN PRN Reason: Saline Flush Tamsulosin HCl (Flomax) 0.8 mg PO [facility] Last Admin: 02/21/20 20:54 Dose: 0.8 mg Thiamine HCl (Thiamine) 100 mg PO DAILY [facility] Last Admin: 02/22/20 11:25 Dose: 100 mg Tramadol HCl (Ultram) 50 mg PO Q4H PRN PRN Reason: PAIN-MODERATE Last Admin: 02/21/20 07:09 Dose: 50 mg Vitamin B Complex/Vit C/Folic Acid (Nephro-Brannon Tablet) 1 tab PO DAILY [facility] Last Admin: 02/22/20 11:25 Dose: 1 tab Vital Signs & Weight: Vital Signs Temp Pulse Resp BP BP Pulse Ox 02/22/20 11:08 97.6 F 82 20 96/60 100 02/22/20 04:14 97.9 F 82 16 116/57 L 100 Admit Weight 255 lb 15.296 oz Weight 255 lb 15.296 oz I/O: I/O 02/21/20 02/22/20 02/23/20 06:59 06:59 06:59 Intake Total 350 Balance 350 - Physical Exam General: alert & oriented x3, no apparent distress, speech clear, affect appropriate HEENT: mucus membranes moist, normocephaly Neck: supple neck, midline trachea, no JVD/HJR, no lymphadenopathy Cardiology: regular rate and rhythm, PMI nondisplaced Lungs: clear to auscultation, normal breath sounds, no wheeze, rales, rhonchi Neurology: cranial nerve 2-12 intact, grossly intact, no lateralizing findings Abdomen: active bowel sounds, soft Extremities: dry, strong pulses, warm Skin: other (eschar with erythema, warmth, and area of induration ( medial, inferior, extending laterally) No drainage) - Labs Result Diagrams: 02/22/20 06:00 02/21/20 05:46 - EKG Interpretation EKG shows: Sinus rhythm - Device Device: dual, pacemaker Device Result: [employer] (DDDR 40. RV pacing <2%. VR largely 50- 70 by interrogation today. Not device dependent.) - Assessment/Plan Assessment/Plan: 1. Possible pacemaker pocket infection. 2. Pacemaker implant approximately three years ago by [employer] for symptomatic bradycardia, [employer] [address] DR. 3. Recent fall/trauma with left distal femur fracture status post internal repair. 4. Preserved LVEF 50% to 55% by echocardiogram, possible history of cardiomyopathy. 5. End-stage renal disease on hemodialysis Tuesday, Tuesday, and Tuesday with peritoneal dialysis right upper extremity AV fistula. 6. Enterobacter infection of the surgical wound. 7. Anemia [facility] [employer] Zephys dual pacemaker remains programmed with LRL 40bpm. RV pacing <2%, VR largely 50-65bpm. Frequent NS atrial tach seen during interrogation, but fall below detect rate of 150bpm. Spoke to Dr Siddhartha Howell regarding laser lead extraction. He is agreeable to do this if patient is transferred to [facility]. Will need to be admitted under IM/hospitalist service, and arranged by admitting MD for coordination of care moving forward. He is OK for transfer by EP. Thank you for allowing me to participate in the care of this patient.
--- NOTE | 2020-02-22 16:33 | PDOC.BPN ---
- Brief Progress Note DATE OF SERVICE: 02/22/2020 SUBJECTIVE: Mr. Laguerre remained on surgical floor. Pain is better controlled with fentanel patch He has tolerated with the diet. He tolerated with hemodialysis as scheduled. Dr. Giles saw the patient, recommend transfer to [facility] for pacemaker infection extrication. His pacemaker is currently stable, so the transfer is not urgent. Patient went back from the OR, tolerated with procedure OBJECTIVE: GENERAL: Currently, the patient is lying in bed, comfortable with no acute respiratory distress. VITAL SIGNS: Temperature 98.7, heart rate 88, respiratory rate 16, O2 saturation 100 on room air, blood pressure 115/56. LUNGS: Clear bilaterally. HEART: Regular rate and rhythm. ABDOMEN: Soft, nondistended. EXTREMITIES: Postop dressing clean and dry. Neurovascularly intact. NEUROLOGIC: No focal neurology deficits. ASSESSMENT: 1. Status post fall. 2. Status post open reduction and internal fixation of the left distal femur fracture, status post irrigation, washout with postop wound infection, improved. 3. Pacemaker site infection. 4. History of end-stage renal disease, on hemodialysis. 5. Sleep apnea. 6. Pacemaker with pacemaker site infection. 7. Gastric ulcer. 8. Gastric bypass. 9. Acute blood loss anemia, stable. PLAN: The patient will go to the OR with Dr. Hernandez tomorrow for another washout of left distal femur fracture. The patient will plan to be transferred with [facility] for pacemaker site infection extrication and replacement. Patient will have bed available this Tuesday , when the transferring will be initiated Dr. Giles will coordinate with Dr Howell in [facility]. Dr. Hernandez will coordinate with the orthopedic surgeon in [facility]. Nephrology will need to be consulted. The patient will continue physical therapy. Continue diet. The patient will need to be have a CBC checked tomorrow. The patient was seen by Dr. Lee on round this morning.
[2020-02-22] MEDS: Meropenem 500 MG in Sodium Chloride 0.9% 100 ML IVPB SCH (16:55)
[2020-02-22] MEDS: HYDROcodone/Acetaminophen 7.5/325 mg Tablet PO PRN ×2 (17:11→21:21)
--- NOTE | 2020-02-22 17:29 | PRG ---
DATE OF SERVICE: 02/22/2020 SERVICE: Nephrology. SUBJECTIVE: A 74-year-old male, seen in followup for end-stage renal disease management. The patient had a repeat washout of left lower extremity surgical wound earlier today. Has no new complaints other than pain at the surgical site. Denied fever, nausea, vomiting. Transfer to [place] for higher level of care is planned. OBJECTIVE: VITAL SIGNS: Temperature 97.6, pulse 82, respiratory rate 20, SpO2 100% on room air, blood pressure is 96/60. GENERAL: Obese male, in no obvious distress. Afebrile. Anicteric. Acyanotic. HEENT: Normocephalic, atraumatic. Oral mucosa is moist. NECK: Supple with no JVD. CARDIOVASCULAR: Regular rhythm and rate. Normal heart sounds one and two. RESPIRATORY: Fair air entry bilaterally with no obvious crackle or rhonchi or use of accessory muscles. GI: Obese, soft, nontender, nondistended with normal bowel sounds. PD catheter noted. MUSCULOSKELETAL: Left upper chest necrotic scab with mild surrounding erythema noted. No obvious tenderness appreciated. Right neck triple-lumen catheter noted as well as right upper arm AV fistula. Mild edema of both lower extremities, more on the left noted. YARDING SUPERVISOR: Conscious, alert, and oriented x3 with appropriate mental status. Cranial nerves 2 through 12 are grossly intact. DIAGNOSTIC DATA: CBC this morning showed WBC count of 6.8, hemoglobin of 8.9, MCV of 97.1, platelets of 179. ASSESSMENT: 1. End-stage renal disease, on hemodialysis. The patient was on PD, but now on hemodialysis due to uremic encephalopathy. 2. Hypotension: Most likely due to anesthetics and pain medications. No overt evidence of hypoperfusion. The patient is comfortable. 3. Uremic encephalopathy: Resolved with transition into hemodialysis. 4. Hypocalcemia, on supplementation. 5. Vitamin D, on supplementation. 6. Orthostatic hypotension: Improved with midodrine and pyridostigmine. 7. History of hypertension: Now hypotensive and off medications. 8. Anemia in chronic kidney disease. 9. Acute blood loss anemia, status post blood transfusion. PLAN: 1. We will dialyze the patient today for 4 hours with UF as tolerated. We will hold antihypertensives for now due to hypotension. 2. We will continue midodrine and pyridostigmine. 3. Continue calcium and vitamin D supplementation. 4. The patient can be transferred to higher level of care from Nephrology point of view. We will, however, continue to follow up with the patient and provide hemodialysis, if indicated. Further treatment to follow depending on hospital course. HEMODIALYSIS PROCEDURE NOTE: The patient was seen at the Dialysis Unit. Developed hypotension. The patient was still hypotensive on arrival to the Dialysis Unit. Hypertension got worse with connection to hemodialysis. The patient, however, denied any mental status change, nausea, vomiting, or headache, or focal weakness. We will go ahead and give a bolus of albumin and start the hemodialysis. We will also give additional albumin, if indicated to hemodynamics stable. We will dialyze the patient with 4K bath for 4 hours. We will monitor hemodynamics very closely due to hypotension. Job ID: [id number]
[2020-02-22] MEDS: Tamsulosin HCl 0.4 MG CAP PO SCH (21:17)
[2020-02-22] MEDS: Atorvastatin Calcium 40 MG TAB PO SCH (21:18)
--- NOTE | 2020-02-23 00:40 | PRG ---
DATE OF SERVICE: 02/23/2020 SUBJECTIVE: The patient is currently on the surgical floor. He is status post ground level fall, in which he sustained a left periprosthetic femur fracture, then his postop surgical site had become infected, requiring a washout, which was repeated again this morning. The patient has tolerated that. The patient also underwent hemodialysis today, so at the time of my visit, he was feeling fatigued, but otherwise states that his pain is controlled and desires to get out of bed to a chair tomorrow while working with therapy. The patient also is currently scheduled to be transferred to [facility] on Tuesday to undergo replacement of his pacemaker as it has signs of infection around it. The Electrophysiology physician has facilitated this move. Nephrology and Orthopedics are also in agreement. We will continue to work with transfer center to make this happen. PHYSICAL EXAMINATION: VITAL SIGNS: Stable. The patient is afebrile. GENERAL: The patient is resting comfortably in bed. He is awake, alert, conversant, and appropriate. LUNGS: Have scant wheezing bilaterally, otherwise unremarkable. HEART: Regular rate and rhythm. ABDOMEN: Soft, nontender with active bowel sounds. EXTREMITIES: Neurovascularly intact x4. ASSESSMENT AND PLAN: 1. Status post ground level fall. 2. Status post open reduction and internal fixation of left distal periprosthetic femur fracture. 3. Status post irrigation and debridement of postsurgical wound infection x2. 4. Left ankle sprain, improved. 5. History of end-stage renal disease, on hemodialysis. 6. History of obstructive sleep apnea, uses CPAP at night. 7. History of pacemaker placement with suspected pacemaker pocket infection currently. 8. Acute on chronic anemia, stable. Plan will be to continue supportive care. Antibiotics per Dr. Cruz. Encourage physical and occupational therapy and await final transfer arrangements. Job ID: [id number]
[2020-02-23] MEDS: Acetaminophen 500 MG TAB PO SCH ×3 (05:31→17:02)
[2020-02-23 05:36] LABS: #Eosinphils 0.1 thou/uL (0.0-0.7); #Lymphocytes 0.9 thou/uL (1.20-3.40); #Monocytes 0.4 thou/uL (0.11-0.59); #Neutrophils 4.9 thou/uL (1.40-6.50); %Basophils 0.1 % (0.0-1.0); %Eosinophils 1.7 % (0.0-10.0); %Lymphocytes 13.5 % (21.0-51.0); %Neutrophils 78.6 % (42.0-75.0); Hemoglobin 7.1 g/dL (14.0-18.0); Mean Corpuscular HGB CONC 31.9 g/dL (32.0-36.0); Mean Corpuscular Hemoglobin 31.5 pg (27.0-31.0); Mean Corpuscular Volume 98.6 fL (78.0-98.0); Mean Platelet Volume 8.3 fL (7.4-10.4); Platelet Count 180 thou/uL (130-400); RBC Distribution Width 18.5 % (11.5-14.5); Red Blood Cell (RBC) Count 2.26 mill/uL (4.70-6.10); White Blood Cell (WBC) Count 6.3 thou/uL (4.8-10.8)
[2020-02-23] MEDS: traMADol HCl 50 MG TAB PO PRN (05:58)
[2020-02-23 06:01] LABS: Anion Gap 12 mmol/L (10-20); BUN (Urea Nitrogen) 22 mg/dL (8.4-25.7); Calc. Creatinine Clearance 26 mL/min (70-130); Carbon Dioxide 29 mmol/L (23-31); Chloride 103 mmol/L (98-107); Estimated GFR-MDRD 14; Glucose 124 mg/dL (83-110); Magnesium 1.9 mg/dL (1.6-2.6); Phosphorus 3.1 mg/dL (2.3-4.7); Potassium 4.3 mmol/L (3.5-5.1); Sodium 140 mmol/L (136-145)
[2020-02-23] MEDS: HYDROcodone/Acetaminophen 7.5/325 mg Tablet PO PRN ×4 (08:03→22:26)
[2020-02-23] MEDS: Midodrine HCl 5 MG TAB PO SCH ×3 (10:23→22:24)
[2020-02-23] MEDS: Sevelamer Carbonate 800 MG TAB PO SCH ×3 (10:24→17:02)
[2020-02-23] MEDS: Heparin 5,000 UNITS/ML VIAL SC SCH ×3 (10:24→22:24)
[2020-02-23] MEDS: Finasteride 5 MG TAB PO SCH (10:25)
[2020-02-23] MEDS: Calcitriol 0.25 MCG CAP PO SCH (10:25)
[2020-02-23] MEDS: Pyridostigmine Bromide IR 60 MG TAB PO SCH ×3 (10:25→22:25)
[2020-02-23] MEDS: Folic Acid/Vit B Comp W-C PO SCH (10:25)
[2020-02-23] MEDS: Ferrous Sulfate 325 MG TAB PO SCH ×2 (10:26→17:02)
[2020-02-23] MEDS: Ascorbic Acid 500 mg Chewable Tablet PO SCH ×2 (10:26→17:02)
[2020-02-23] MEDS: Allopurinol 100 MG TAB PO SCH (10:26)
[2020-02-23] MEDS: Thiamine 100 MG TAB PO SCH (10:26)
[2020-02-23] MEDS: Calcium Carbonate 500 MG TAB PO SCH ×3 (10:26→22:24)
[2020-02-23] MEDS: Saccharomyces boulardii 250 MG CAP PO SCH (10:27)
[2020-02-23] MEDS: Gabapentin 100 MG CAP PO SCH ×2 (10:27→22:24)
[2020-02-23] MEDS: Insulin Glargine 6 UNITS in Pre-Filled Syringe 1 EACH SC SCH (10:28)
[2020-02-23] MEDS: Megestrol Acetate 800 MG/20 ML UDCUP PO SCH (10:28)
[2020-02-23] MEDS ORDERED: traMADol HCl 50 MG TAB PO PRN (10:58)
--- NOTE | 2020-02-23 11:38 | PRG ---
DATE OF SERVICE: 02/23/2020 SERVICE: Nephrology. SUBJECTIVE: A 74-year-old male, seen in followup for end-stage renal disease management and hypotension. The patient with end-stage renal disease, hypertension, and diabetes, was admitted after a fall. Had an open reduction and internal fixation, which was complicated by infection. The patient had persistent hypotensive spell and had received albumin during hemodialysis yesterday. He is also getting another unit of packed red blood cells this morning. Feels better otherwise, appetite has improved. The patient is to be transferred to [place] for higher level of care related to necrotic scab on top of the pacemaker pocket concerning for infection and needing extraction of pacemaker lead. The patient has remained afebrile, and denied nausea or vomiting. Pain is better controlled. OBJECTIVE: VITAL SIGNS: Temperature 99.1, pulse 83, respiratory rate 18, SpO2 of 100 on room air, blood pressure is 117/62. GENERAL: Obese male, in no obvious distress. Afebrile. Anicteric. Acyanotic. HEENT: Normocephalic, atraumatic. Oral mucosa is moist. NECK: Supple with no JVD. CARDIOVASCULAR: Regular rhythm and rate with normal heart sounds 1 and 2. RESPIRATORY: Fair air entry bilaterally with some transmitted breath sounds. Air entry decreased at both bases posteriorly. GI: Obese, soft, nontender, nondistended with normal bowel sounds. PD catheter noted. MUSCULOSKELETAL: Left upper chest necrotic scab with some surrounding erythema noted. Right IJ triple-lumen catheter noted as well as right upper arm AV fistula. Surgical dressing and wound VAC on the left distal thigh and knee noted as well as a bruise on the dorsum of left foot and some blisters on the plantar surface of left foot. [id number] edema of all the extremities noted. HISTOLOGY MANAGER: Conscious and alert and oriented x3 with appropriate mental status. Cranial nerves 2 through 12 are grossly intact. No tremor or asterixis noted. DIAGNOSTIC DATA: CBC showed WBC count of 6.3, hemoglobin of 7.1, MCV of 98.6, and platelets of 180. Chemistry showed sodium 140, potassium 4.3, chloride 103, CO2 of 29, BUN 22, creatinine 4.14, glucose 124, calcium 7.0, phosphorus 3.1, magnesium 1.9. ASSESSMENT: 1. Persistent hypotension: This is due to infective process. The patient also has orthostatic hypotension, which most likely is related to autonomic neuropathy due to long-standing diabetes mellitus. We will continue on midodrine. Blood pressure has improved with albumin as well as crystalloid with blood transfusion. 2. Acute blood loss anemia: This is superimposed on baseline chronic anemia of chronic kidney disease. Transfusion as per primary attending. The patient has received 6 units of packed red blood cells since this hospitalization. 3. Anemia of chronic kidney disease: The patient is on iron and erythrocyte-stimulating agent: We will continue the same. 4. End-stage renal disease. The patient was on peritoneal dialysis, but was transitioned to hemodialysis due to inadequate treatment leading to uremic encephalopathy. Uremic encephalopathy has resolved with transition into hemodialysis. Last hemodialysis was yesterday. 5. Volume overload with generalized edema: This is due to hypoalbuminemia and acute illness. We will continue hemodialysis with ultrafiltration as permitted by hemodynamics. 6. Hyponatremia: Resolved. 7. Hypocalcemia: Due to vitamin D deficiency and poor oral intake. Hungry bone syndrome related to fracture and commencement of vitamin D supplementation was also contributory. Improving with supplementation and vitamin D supplementation. We will continue the same. 8. History of hypertension: Currently off antihypertensives. We will continue to hold antihypertensives. 9. Disposition: The patient is awaiting transfer to [place] for further evaluation and treatment related to pacemaker pocket possible infection. We will plan on dialyzing the patient with UF as tolerated on Tuesday if the patient is still here. Job ID: [id number]
[2020-02-23 11:56] LABS: Platelet Count 175 thou/uL (130-400)
[2020-02-23] MEDS: Insulin Regular 300 UNITS/3 ML VIAL SC PRN (12:34)
[2020-02-23] MEDS: Meropenem 500 MG in Sodium Chloride 0.9% 100 ML IVPB SCH (12:40)
[2020-02-23 13:19] LABS: SARS-CoV-2 MS2 Positive; SARS-CoV-2 N Gene Negative; SARS-CoV-2 S Gene Negative; SARS-CoV-2 orf1ab Negative
--- NOTE | 2020-02-23 17:24 | PRG ---
DATE OF SERVICE: 02/23/2020 SUBJECTIVE: Mr. Laguerre remained in surgical floor. He reports pain is better controlled. He tolerated with his diet. He tolerated with hemodialysis. this morning. Hemoglobin dropped to 7.1, in which he got 1 unit of blood transfusion this morning. Other than that, he voiced no concern. He is in agreement to the plan of transfer to [facility] for continued care. PHYSICAL EXAMINATION: GENERAL: Currently, the patient is lying in bed with no acute respiratory distress. VITAL SIGNS: Temperature 99, respiratory rate 18, O2 saturation 100 on room air, blood pressure 100/57, heart rate 87. LUNGS: Clear bilaterally. HEART: Regular rate and rhythm. ABDOMEN: Soft, nondistended. EXTREMITIES: Neurovascularly intact x4. NEUROLOGY: No focal neurology deficits. SKIN: Postop dressing clean, dry, intact. On the chest at the pacemaker site infection and necrosis. ASSESSMENT: 1. Status post ground level fall. 2. Left distal periprosthetic femur fracture, status post ORIF and washout. 3. Left ankle sprain, improved. 4. History of end-stage renal disease, on hemodialysis. 5. Obstructive sleep apnea, on CPAP at night. 6. Pacemaker placement, suspected pacemaker infection. 7. [id number] anemia, had 1 unit of blood transfusion this morning. PLAN: 1. Continue supportive care. 2. Continue pain control. 3. We will coordinate with Transfer Center for transfer tomorrow to [facility]. 4. We will recheck hemoglobin at noon. The patient was discussed with Dr. Lee this morning. Job ID: [id number] [facility]
--- NOTE | 2020-02-23 22:12 | PRG ---
DATE OF SERVICE: 02/23/2020 SUBJECTIVE: The patient remains on the surgical floor. He is status post ground level fall, which he sustained a left distal periprosthetic femur fracture, which he underwent repair of. Unfortunately, he had postop surgical site infection requiring washout x2. It was also noted that his pacemaker pocket may have become infected with bacteria. In light of that, arrangements are being made for the patient to be transferred to [facility] for removal and replacement of his pacemaker. Today, the patient did receive 1 unit of packed red blood cells. He was able to work with Physical and Occupational Therapy twice. His pain is controlled. He is tolerating a diet. Bowel function continues. OBJECTIVE: VITAL SIGNS: Stable. The patient is afebrile. GENERAL: The patient is resting comfortably in bed. He is awake, alert, conversant, and appropriate. He is in good spirits today as he is looking forward to being transferred tomorrow as this gets him closer to home. LUNGS: Clear to auscultation bilaterally. HEART: Regular rate and rhythm. ABDOMEN: Soft and nontender with active bowel sounds. EXTREMITIES: Neurovascularly intact x4. Postop dressing is clean, dry, and intact. ASSESSMENT AND PLAN: 1. Status post ground level fall. 2. Status post open reduction and internal fixation of left distal periprosthetic femur fracture. 3. Status post irrigation and debridement of post surgical wound infection x2. 4. Left ankle sprain, improved. 5. History of end-stage renal disease, on hemodialysis. 6. History of obstructive sleep apnea, the patient uses continuous positive airway pressure at night. 7. History of pacemaker placement with suspected pacemaker pocket infection, currently. 8. Acute on chronic anemia, stable. Plan will be to continue antibiotic therapy. Hemodialysis as scheduled. Encourage physical and occupational therapy and await final transfer arrangements. Job ID: [id number]
[2020-02-23] MEDS: Atorvastatin Calcium 40 MG TAB PO SCH (22:24)
[2020-02-23] MEDS: Tamsulosin HCl 0.4 MG CAP PO SCH (22:25)
[2020-02-24] MEDS: Acetaminophen 500 MG TAB PO SCH ×3 (01:10→11:46)
[2020-02-24] MEDS: HYDROcodone/Acetaminophen 7.5/325 mg Tablet PO PRN (06:07)
[2020-02-24 06:29] LABS: #Eosinphils 0.2 thou/uL (0.0-0.7); #Lymphocytes 1.2 thou/uL (1.20-3.40); #Monocytes 0.5 thou/uL (0.11-0.59); #Neutrophils 5.6 thou/uL (1.40-6.50); %Basophils 0.5 % (0.0-1.0); %Eosinophils 2.9 % (0.0-10.0); %Lymphocytes 16.3 % (21.0-51.0); %Monocytes 6.3 % (0.0-10.0); %Neutrophils 74.1 % (42.0-75.0); Hemoglobin 8.2 g/dL (14.0-18.0); Mean Corpuscular HGB CONC 31.9 g/dL (32.0-36.0); Mean Corpuscular Hemoglobin 31.4 pg (27.0-31.0); Mean Corpuscular Volume 98.3 fL (78.0-98.0); Mean Platelet Volume 7.8 fL (7.4-10.4); Platelet Count 208 thou/uL (130-400); RBC Distribution Width 17.4 % (11.5-14.5); White Blood Cell (WBC) Count 7.5 thou/uL (4.8-10.8)
[2020-02-24 06:53] LABS: Anion Gap 15 mmol/L (10-20); BUN (Urea Nitrogen) 31 mg/dL (8.4-25.7); Calc. Creatinine Clearance 20 mL/min (70-130); Calcium 7.4 mg/dL (7.8-10.44); Carbon Dioxide 26 mmol/L (23-31); Chloride 103 mmol/L (98-107); Estimated GFR-MDRD 10; Glucose 74 mg/dL (83-110); Potassium 4.5 mmol/L (3.5-5.1); Sodium 139 mmol/L (136-145)
[2020-02-24 08:15] VITALS: TEMP 98.1
[2020-02-24 10:20] VITALS: BP 118/67
[2020-02-24] MEDS: Insulin Glargine 6 UNITS in Pre-Filled Syringe 1 EACH SC SCH (10:35)
[2020-02-24] MEDS: Heparin 5,000 UNITS/ML VIAL SC SCH (10:35)
[2020-02-24] MEDS: Calcitriol 0.25 MCG CAP PO SCH (10:36)
[2020-02-24] MEDS: Folic Acid/Vit B Comp W-C PO SCH (10:36)
[2020-02-24] MEDS: Midodrine HCl 5 MG TAB PO SCH (10:37)
[2020-02-24] MEDS: Ascorbic Acid 500 mg Chewable Tablet PO SCH (10:38)
[2020-02-24] MEDS: Finasteride 5 MG TAB PO SCH (10:38)
[2020-02-24] MEDS: Calcium Carbonate 500 MG TAB PO SCH (10:38)
[2020-02-24] MEDS: Allopurinol 100 MG TAB PO SCH (10:38)
[2020-02-24] MEDS: Saccharomyces boulardii 250 MG CAP PO SCH (10:39)
[2020-02-24] MEDS: Thiamine 100 MG TAB PO SCH (10:39)
[2020-02-24] MEDS: Pyridostigmine Bromide IR 60 MG TAB PO SCH (10:39)
[2020-02-24] MEDS: Gabapentin 100 MG CAP PO SCH (10:39)
[2020-02-24] MEDS: Ferrous Sulfate 325 MG TAB PO SCH (10:39)
[2020-02-24] MEDS: Megestrol Acetate 800 MG/20 ML UDCUP PO SCH (10:42)
[2020-02-24] MEDS: Sevelamer Carbonate 800 MG TAB PO SCH (10:44)
== END 2020-02-24 11:45 | disposition short-term general hospital (02) | DRG 480 ==
LOC: ERS 18:55 → IMCU/EMU 22:45 → T4-B 01-31 14:57 → SJJU 01-31 20:59 → SURG A 02-09 16:56
PROVIDERS: ADMIT Surgery; ATTEND Surgery
PROC: 3E1M39Z Irrigation of Peritoneal Cavity using Dialysate, Percutaneous Approach (ICD-10-PCS; 2020-01-29)
PROC: 0QSC04Z Reposition Left Lower Femur with Internal Fixation Device, Open Approach (ICD-10-PCS; principal; 2020-01-30)
PROC: 06HY33Z Insertion of Infusion Device into Lower Vein, Percutaneous Approach (ICD-10-PCS; 2020-02-04)
PROC: 0QBC0ZZ Excision of Left Lower Femur, Open Approach (ICD-10-PCS; 2020-02-18)
PROC: 3E0V329 Introduction of Other Anti-infective into Bones, Percutaneous Approach (ICD-10-PCS; 2020-02-18)
PROC: 0JDM0ZZ Extraction of Left Upper Leg Subcutaneous Tissue and Fascia, Open Approach (ICD-10-PCS; 2020-02-22)
PROC: 0YPB0YZ Removal of Other Device from Left Lower Extremity, Open Approach (ICD-10-PCS; 2020-02-22)
PROC: 3E0102A Introduction of Anti-Infective Envelope into Subcutaneous Tissue, Open Approach (ICD-10-PCS; 2020-02-22)
DX: S72.402A Unspecified fracture of lower end of left femur, initial encounter for closed fracture (principal); N18.6 End stage renal disease; I21.A1 Myocardial infarction type 2; M97.12XA Periprosthetic fracture around internal prosthetic left knee joint, initial encounter; I13.2 Hypertensive heart and chronic kidney disease with heart failure and with stage 5 chronic kidney disease, or end stage renal disease; E87.2 Acidosis; E27.40 Unspecified adrenocortical insufficiency; N17.9 Acute kidney failure, unspecified; I42.9 Cardiomyopathy, unspecified; D62 Acute posthemorrhagic anemia; E87.1 Hypo-osmolality and hyponatremia; N25.81 Secondary hyperparathyroidism of renal origin; I82.612 Acute embolism and thrombosis of superficial veins of left upper extremity; G93.49 Other encephalopathy; T81.49XA Infection following a procedure, other surgical site, initial encounter; T81.30XA Disruption of wound, unspecified, initial encounter; T82.7XXA Infection and inflammatory reaction due to other cardiac and vascular devices, implants and grafts, initial encounter; Z20.828 Contact with and (suspected) exposure to other viral communicable diseases; W01.0XXA Fall on same level from slipping, tripping and stumbling without subsequent striking against object, initial encounter; M10.9 Gout, unspecified; Z96.653 Presence of artificial knee joint, bilateral; E86.9 Volume depletion, unspecified; E83.39 Other disorders of phosphorus metabolism; K27.9 Peptic ulcer, site unspecified, unspecified as acute or chronic, without hemorrhage or perforation; E11.22 Type 2 diabetes mellitus with diabetic chronic kidney disease; E66.9 Obesity, unspecified; G47.33 Obstructive sleep apnea (adult) (pediatric); S93.402A Sprain of unspecified ligament of left ankle, initial encounter; E55.9 Vitamin D deficiency, unspecified; I95.1 Orthostatic hypotension; E11.42 Type 2 diabetes mellitus with diabetic polyneuropathy; E88.09 Other disorders of plasma-protein metabolism, not elsewhere classified; D63.1 Anemia in chronic kidney disease; M48.00 Spinal stenosis, site unspecified; I50.9 Heart failure, unspecified; E73.9 Lactose intolerance, unspecified; T38.0X5A Adverse effect of glucocorticoids and synthetic analogues, initial encounter; D72.829 Elevated white blood cell count, unspecified; E86.0 Dehydration; R19.7 Diarrhea, unspecified; E87.70 Fluid overload, unspecified; B96.89 Other specified bacterial agents as the cause of diseases classified elsewhere; Y83.8 Other surgical procedures as the cause of abnormal reaction of the patient, or of later complication, without mention of misadventure at the time of the procedure; Z87.891 Personal history of nicotine dependence; Y92.524 Gas station as the place of occurrence of the external cause; Z90.49 Acquired absence of other specified parts of digestive tract; Z95.0 Presence of cardiac pacemaker; Z99.2 Dependence on renal dialysis; Z79.899 Other long term (current) drug therapy; Z68.30 Body mass index [BMI] 30.0-30.9, adult; Z98.84 Bariatric surgery status
CPT/HCPCS: 36415; 36416; 36430; 70450; 71045; 72125; 72170; 76000; 76999; 80048; 80053; 80069; 82040; 82140; 82306; 82533; 82550; 82553; 82728; 82805; 83036; 83540; 83550; 83735; 83970; 84100; 84145; 84443; 84484; 85007; 85014; 85018; 85025; 85027; 86850; 86900; 86901; 87070; 87077; 87186; 87205; 87324; 87340; 87449; 87635; 90935; 90945; 93005; 93010; 93306; 96361; 96374; 96375; 96376; C1713; G0257; G0390; J0690; J0696; J1100; J1170; J1200; J1644; J1720; J1815; J1885; J1956; J2001; J2185; J2270; J2405; J2704; J3010; J3260; J3370; J3490; J7030; J7050; J7512; P9016; P9045; P9047; Q0162; Q5105; Q9967; U0003